=== PATIENT | male | born 1990 | race Two or more races ===

== ENCOUNTER 2019-08-03 15:25 | Inpatient (IN) | payer MEDICAID ==
[~2019-08-03] VITALS: Ht 170.2 cm; Wt 98.0 kg
[2019-08-03] VITALS (23 sets, daily range): BP systolic 87–151; BP diastolic 42–100
--- NOTE | 2019-08-03 15:30 | NUR ---
SERENE FROM US RENAL, 28 YEAR ROLD MALE C/O LOW (BP 75/44). ALERT TO TACTILE STIMULI NONVERBAL. NOTED RECTAL BLEEDING FROM SITE MD MADE AWARE. WITH WITH LEFT SUBCLAVIAN DIALYSIS ACCESS, GTUBE AND TRACH WITH COOL AERSOL. WAITING TO BE SEEN BY
[2019-08-03] MEDS ORDERED: VANCOMYCIN 1 GM in IV D5W 250 ML IV ONE (16:00)
[2019-08-03] MEDS ORDERED: MEROPENEM 500 MG in IV NS 0.9% 50 ML IV ONE (16:00)
[2019-08-03] MEDS ORDERED: ACET650S26 GT (16:02)
[2019-08-03] MEDS ORDERED: INSU100I34 SQ (16:02)
[2019-08-03] MEDS ORDERED: POLY17PO4 GT (16:02)
[2019-08-03] MEDS ORDERED: NUT.237L67 GT (16:02)
[2019-08-03] MEDS ORDERED: FOLI0.8T23 GT (16:02)
[2019-08-03] MEDS ORDERED: HEPA50008 SQ (16:02)
[2019-08-03] MEDS ORDERED: IPRA3AMP23 IH (16:02)
[2019-08-03] MEDS ORDERED: COLL30OI TP (16:02)
[2019-08-03] MEDS ORDERED: CLOB15CR5 TP (16:02)
[2019-08-03] MEDS ORDERED: GLUC1KIT IJ (16:02)
[2019-08-03] MEDS ORDERED: LEVO75TA7 GT (16:02)
[2019-08-03] MEDS ORDERED: SEVE800T8 GT (16:02)
[2019-08-03] MEDS ORDERED: VITA56.7 TP (16:02)
[2019-08-03] MEDS ORDERED: DOCU50LI GT (16:02)
[2019-08-03] MEDS ORDERED: GLYC1TAB12 GT (16:02)
[2019-08-03] MEDS ORDERED: POLY15DR40 EACHEYE (16:02)
[2019-08-03] MEDS ORDERED: FAMO20TA8 GT (16:02)
[2019-08-03] MEDS ORDERED: METO5SOL GT (16:02)
[2019-08-03] MEDS ORDERED: BISA10SU11 RC (16:02)
[2019-08-03] MEDS ORDERED: LEVE100S GT (16:02)
--- NOTE | 2019-08-03 16:08 | NUR ---
2 UNIT PRBC BLOOD TRANSFUSION INITIATE
--- NOTE | 2019-08-03 16:23 | NUR ---
B/P 91/51, RR 16, T 99.0, HR 127 NO REACTION NOTED
--- NOTE | 2019-08-03 16:27 | NUR ---
PICC LINE NURSE AT BEDSIDE
--- NOTE | 2019-08-03 16:27 | NUR ---
NO REACTION TO BLOOD TRANSFUSION WILL CONTINUE TO MONITOR
--- NOTE | 2019-08-03 16:32 | NUR ---
RIGHT UPPER ARM TRIPLE LUMEN PICC INSERTED BY KATIE PICC LINE NURSE
[2019-08-03 16:34] LABS: BASOPHILS # (AUTO) 0.1 /CMM (0.0-0.2); BASOPHILS % (AUTO) 0.3 % (0.0-2.0); EOSINOPHILS % (AUTO) 0.9 % (0.0-6.0); HEMATOCRIT 26 % (39-51); HEMOGLOBIN 8.1 g/dL (13.5-17.5); LYMPHOCYTES # (AUTO) 3.4 /CMM (0.8-4.8); LYMPHOCYTES % (AUTO) 15.6 % (20.0-44.0); MEAN CORPUSCULAR HGB CONC 32 g/dl (31.0-36.0); MEAN CORPUSCULAR VOLUME 103 fL (80-96); MONOCYTES # (AUTO) 1.1 /CMM (0.1-1.30); NEUTROPHILS % (AUTO) 78.2 % (43.0-81.0); PLATELET COUNT (AUTO) 222 /CMM (150-450); WHITE BLOOD COUNT (AUTO) 21.7 K/uL (4.3-11.0)
[2019-08-03] MEDS: NOREPINEPHRINE 8 MG in IV D5W 500 ML IV PRN ×2 (16:35→19:20)
[2019-08-03 16:37] LABS: CALCIUM, SERUM 10.7 mg/dL (8.5-10.1); CARBON DIOXIDE 24 mmol/L (21-32); CHLORIDE 106 mmol/L (98-107); CREATININE 7.3 mg/dL (0.6-1.3); GLUCOSE 157 mg/dL (74-106); SODIUM SERUM 142 mmol/L (136-145); UREA NITROGEN, BLOOD 62 mg/dL (7-18)
[2019-08-03 16:42] LABS: ALANINE AMINOTRANSFERASE 22 U/L (12-78); ALBUMIN 2.3 g/dL (3.4-5.0); ALKALINE PHOSPHATASE 88 U/L (46-116); ASPARTATE AMINOTRANSFERASE 20 U/L (15-37); BILIRUBIN,DIRECT 0.1 mg/dL (0.0-0.2); BILIRUBIN,TOTAL 0.3 mg/dL (0.2-1.0); TOTAL PROTEIN, SERUM 6.3 g/dL (6.4-8.2)
[2019-08-03 16:46] LABS: APPEARANCE,URINE Slightly Cloudy (CLEAR); BILIRUBIN,URINE SMALL (NEGATIVE); BLOOD, URINE Trace-intact Ery/uL (NEGATIVE); COLOR,URINE Yellow (YELLOW); KETONES,URINE Negative (NEGATIVE); LEUKOCYTE ESTERASE ,URINE Negative (NEGATIVE); NITRITE, URINE Negative (NEGATIVE); PH,URINE 5.5 (5.0-8.0); PROTEIN,URINE 100 mg/dl (NEGATIVE); UGLUCOSE Negative (NEGATIVE); UROBILINOGEN,URINE 0.2 EU/dL (0.2)
--- NOTE | 2019-08-03 16:53 | NUR ---
B/P 110/44, RR 20, HR 112, T 99.0
--- NOTE | 2019-08-03 17:01 | NUR ---
FISHER TRAMMEL NET AT BEDSIDE
[2019-08-03 17:08] LABS: BACTERIA,URINE Rare /HPF (None Seen); RBC,URINE 2-3/HPF /HPF (0-2)
[2019-08-03 17:09] LABS: SQUAMOUS EPITHELIAL CELL,UR Rare /HPF (None Seen); URINE AMORPHOUS URATE Many /HPF (None Seen)
--- NOTE | 2019-08-03 17:21 | NUR ---
PATIENT SOILED AND CHANGED
--- NOTE | 2019-08-03 17:27 | NUR ---
ICU 258
[2019-08-03] MEDS ORDERED: methylPREDNISolone SOD SUCC 125 MG/2ML VIAL IV ONE (17:30)
[2019-08-03] MEDS ORDERED: ONDANSETRON HCL/PF 4 MG/2 ML VIAL IVP PRN (17:30)
[2019-08-03] MEDS ORDERED: DEXTROSE 50%-WATER 50 ML DISP.SYRIN IV PRN (17:30)
[2019-08-03] MEDS ORDERED: NOREPINEPHRINE 8 MG in IV D5W 500 ML IV PRN (17:30)
[2019-08-03] MEDS ORDERED: IV NS 0.9% 1,000 ML BAG IV ONE (17:30)
[2019-08-03 17:36] LABS: EOSINOPHILS % (MANUAL) 1 % (0-4); LYMPHOCYTES % (MANUAL) 23 % (16-48); MONOCYTES % (MANUAL) 3 % (0-11.0); NEUTROPHILS % (MANUAL) 73 (42-76)
--- NOTE | 2019-08-03 17:41 | NUR ---
REPORT GIVEN GRANT TO HOLLAND CONTINUITY OF CARE
[2019-08-03] MEDS ORDERED: FEE PK DOSING 1 MIN EA MC ONE (17:46)
[2019-08-03 17:50] LABS: ABG BASE EXCESS -2.8 mmol/L; ABG OXYGEN SATURATION 96.1 % (92.0-98.5); ABG PCO2 35.3 mmHg (35.0-45.0); ABG PH 7.402 (7.350-7.450); ABG PO2 87.9 mmHg (75.0-100.0); AaDO2 91.7 mmHg; COHb 0.8 % (0.5-1.5); MetHb 0.3 % (0.0-1.5); SITE, ABG Left Radial; VENT MODE, BG VENTURI MAS @ 31%
--- NOTE | 2019-08-03 18:10 | NUR ---
ICU/RN-ADMITTED THIS 28 YR. OLD MALE FROM ER BY PATY PER ACLS PROTOCOL. ROUTINE ICU ADMISSION CARE INITIATED. NURSING FOCUS: INFECTION R/T TO DIAGNOSIS:SEPTIC SHOCK, ACUTE RECTAL BLEEDING. PT. EYES ARE OPEN BUT NON INTERACTIVE, W/ BILATERAL SOFT WRIST RESTRAINTS ON, ATTEMPTED TO REMOVE RESTRAINTS BUT FAILED,PT. NOTED TO GRAB TRACH . WILL MAINTAIN RESTRAINTS FOR NOW AND WILL CONTINUE TO MONITOR PT. ACCORDINGLY.EKG ST W/ HR-107/MIN. BP-112/67. ON LEVOPHED DRIP AT 16 MCG/MIN. WILL TITRATE ACCORDINGLY TO KEEP SBP> 90 PER PROTOCOL. PT. DIAPER SATURATED IN FRESH BLOOD, LARGE IN AMOUNT. PT. JUST RECEIVED 2 UNITS PRBC IN ER. WILL CONTINUE TO MONITOR PER PROTOCOL.PT. IS A FULL CODE. PT. IS A FULL CODE.
--- NOTE | 2019-08-03 18:19 | NUR ---
PATIENT TRANSFERRED SAFELY. 2 UNIT PRBC TRANSFUSED AND COMPLETE. NO REACTIONS NOTED
--- NOTE | 2019-08-03 18:30 | NUR ---
ICU/RN-ACNP/ RHETT SORIA HERE TO SEE PT.
--- NOTE | 2019-08-03 18:45 | NUR ---
ICU/RN- DR. ARCHIBALD GI HERE TO SEE PT. MADE AWARE OF PT. RECENT RECTAL BLEED AND IVF BOLUS ORDERED BY Kris RDZ. ORDER TO TRANSFUSE 1 UNIT OF PRBC AND OK TO GIVE 2700ML IVBOLUS ORDERED BY DR. FERRER.
--- NOTE | 2019-08-03 18:48 | NUR ---
ICU/RN- IVBOLUS 2700 ML NS INFUSED OVER 3-[address] FERRER.
[2019-08-03] MEDS: PANTOPRAZOLE 40 MG VIAL IV SCH (18:49)
[2019-08-03] MEDS: BLOOD SUGAR DIAGNOSTIC 1 EACH STRIP IN SCH ×2 (18:57→23:57)
[2019-08-03] MEDS ORDERED: IV NS 0.9% 1,000 ML IV ONE (19:00)
--- NOTE | 2019-08-03 19:00 | NUR ---
ICU/RN- PT. AGITATED, GAMING SPONTANEOUSLY, W/ MARTY. SOFT WRIST RESTRAINTS ON PER PROTOCOL. REMAINS ON TRACH SIZE 6 SHILEY TO 24%/3L O2. SP-99%. ON LEVOPHED DRIP AT 14 MCG/MIN. LATEST BP-123/73, HR-100. NO S/S OF PAIN. REPORT GIVEN TO ARIANNA PINK.LATEST TEMPT.-99.2. KEPT LIGHTLY COVERED.
[2019-08-03] MEDS: SEVELAMER CARBONATE 0.8 GM POWD.PACK GT SCH (19:03)
[2019-08-03] MEDS: INSULIN REGULAR, HUMAN 100 UNIT/ML 3 ML VIAL SQ PRN (19:21)
--- NOTE | 2019-08-03 19:46 | NUR ---
PLACED PT ON CA 28% 5L. NO RESPIRATORY DISTRESS NOTED AT THIS TIME. WILL CONTINUE TO MONITOR THE PT FOR ANY CHANGES.
--- NOTE | 2019-08-03 20:00 | NUR ---
Received patient awake alert non verbal non interactive not following commands and restless. Moves all extremities.Patient try pull out tract and G-tube & EKG leads when restraint released. Reapplied.No circulatory impairment noted.ST/ST per monitor.Levophed gtt infusing for BP support and will titrate accordingly.With cool aerosol via trach tolerating well.GT patent & clamped.NPO status.IVF infusing via HUAN PICC line.To received 1 unit PRBC.IV NS bolus infusing. Will turn and reposition Q 2 hrs per protocol.
[2019-08-03] MEDS: THERAHONEY GEL 1.5 OZ TUBE TP SCH (20:23)
[2019-08-03] MEDS ORDERED: IV NS 0.9% 250 ML BAG IV ONE (21:00)
[2019-08-03] MEDS: LEVETIRACETAM SOL (5 ML) 100 MG/ML UDC GT SCH (21:18)
[2019-08-03] MEDS: POLYVINYL ALCOHOL 15 ML BOTTLE OP SCH (21:18)
[2019-08-03] MEDS: GLYCOPYRROLATE 1 MG TABLET GT SCH (21:18)
[2019-08-03] MEDS: ACETAMINOPHEN 650 MG/20.3 ML UDC GT PRN (21:56)
--- NOTE | 2019-08-03 21:56 | NUR ---
Patient feverish 100.2 Tylenol administered as PRN.
[2019-08-03] MEDS: IV NS 0.9% 1,000 ML IV PRN (22:24)
--- NOTE | 2019-08-03 23:30 | NUR ---
Patient remains restless and temp 100.7.Bed bath rendered.Complete linens changed. MATERIAL YARD CLERK,Kaya ok'd to give Blood Transfusion even if temp 100.7.Continue to monitor.
[2019-08-04] VITALS (72 sets, daily range): BP systolic 53–177; BP diastolic 17–121
--- NOTE | 2019-08-04 | NUR ---
Patient resting appears calm and comfortable dosing off and on.VS stable.Will transfuse 1 unit PRBC.
[2019-08-04] MEDS ORDERED: IV NS 0.9% 250 ML IV ONE (00:29)
[2019-08-04] MEDS ORDERED: CT SWABBABLE VALVE TRANS SET 1 EA INFUS.SET MC ONE (00:29)
[2019-08-04] MEDS ORDERED: IOHEXOL-300 100 ML VIAL IV ONE (00:29)
--- NOTE | 2019-08-04 00:48 | NUR ---
Patient left via bed to CT in stable condition accompanied by web architect and global technical writerYana.
--- NOTE | 2019-08-04 01:12 | NUR ---
Patient back from CT in stable condition.Kept comfortable.VS stable.
[2019-08-04] MEDS: POLYVINYL ALCOHOL 15 ML BOTTLE OP SCH ×6 (01:22→21:42)
--- NOTE | 2019-08-04 03:30 | NUR ---
One unit PRBC completed without adverse reaction noted.Will monitor AM lab values.
[2019-08-04 04:38] LABS: BASOPHILS % (AUTO) 0.1 % (0.0-2.0); EOSINOPHILS % (AUTO) 0.1 % (0.0-6.0); HEMATOCRIT 29 % (39-51); HEMOGLOBIN 9.7 g/dL (13.5-17.5); LYMPHOCYTES # (AUTO) 1.9 /CMM (0.8-4.8); LYMPHOCYTES % (AUTO) 11.5 % (20.0-44.0); MEAN CORPUSCULAR HGB CONC 33 g/dl (31.0-36.0); MEAN CORPUSCULAR VOLUME 95 fL (80-96); MONOCYTES # (AUTO) 0.3 /CMM (0.1-1.30); MONOCYTES % (AUTO) 1.8 % (2.0-12.0); NEUTROPHILS # (AUTO) 14.4 /CMM (1.8-8.9); NEUTROPHILS % (AUTO) 86.5 % (43.0-81.0); PLATELET COUNT (AUTO) 132 /CMM (150-450); RED BLOOD CELL COUNT(AUTO) 3.05 MIL/uL (4.5-6.0); WHITE BLOOD COUNT (AUTO) 16.7 K/uL (4.3-11.0)
[2019-08-04 04:48] LABS: ALANINE AMINOTRANSFERASE 20 U/L (12-78); ALBUMIN 2.4 g/dL (3.4-5.0); ALKALINE PHOSPHATASE 81 U/L (46-116); ASPARTATE AMINOTRANSFERASE 23 U/L (15-37); BILIRUBIN,TOTAL 0.5 mg/dL (0.2-1.0); CALCIUM, SERUM 9.8 mg/dL (8.5-10.1); CARBON DIOXIDE 23 mmol/L (21-32); CHLORIDE 107 mmol/L (98-107); GLUCOSE 120 mg/dL (74-106); POTASSIUM 4.6 mmol/L (3.5-5.1); SODIUM SERUM 139 mmol/L (136-145); UREA NITROGEN, BLOOD 64 mg/dL (7-18)
[2019-08-04] MEDS: GLYCOPYRROLATE 1 MG TABLET GT SCH ×4 (05:06→21:43)
[2019-08-04] MEDS: PANTOPRAZOLE 40 MG VIAL IV SCH ×2 (05:06→16:55)
[2019-08-04 05:25] LABS: D-DIMER 2.15 mg/L(FEU (0.17-0.50)
[2019-08-04] MEDS: BLOOD SUGAR DIAGNOSTIC 1 EACH STRIP IN SCH ×3 (05:47→17:49)
--- NOTE | 2019-08-04 07:15 | NUR ---
Patient status unchanged.Had one bright red BM x1 moderate amount this morning. Kept clean and dry.Complete linens changed.Turned and repositioned.No acute distress noted. VSS.SR.FSBS Q 6 HRS with results WNL.Report given to day shift RN for continuity of care.
--- NOTE | 2019-08-04 07:50 | NUR ---
BUILDER OPERATOR: pt.is obtunded, able to eyes for seconds, no eyes contact, on wrists restraints, mittens, unable to follow commands, uncooperative, uncoordinated arm, legs activity with pull tubes out risks, SR/ST 110 max, Levophed gtt was stopped at 0500, SBP over 95 now, on trach collar 28%-5L, O2sat. over 96%, RR 26-28, adjusted collar position directly to trach, F/c, able to urinate 130ml over night, has order to remove f/c by report/will s/w , T99.5, H/H 9.05/16 now, one episode of red bloody stool over night, will report , NPO
[2019-08-04] MEDS: SEVELAMER CARBONATE 0.8 GM POWD.PACK GT SCH ×3 (08:38→17:49)
[2019-08-04] MEDS: ACETAMINOPHEN 650 MG/20.3 ML UDC GT PRN (08:39)
[2019-08-04] MEDS: LEVETIRACETAM SOL (5 ML) 100 MG/ML UDC GT SCH ×2 (08:39→21:43)
[2019-08-04] MEDS: LEVOTHYROXINE SODIUM 75 MCG TABLET GT SCH (08:39)
[2019-08-04] MEDS: THERAHONEY GEL 1.5 OZ TUBE TP SCH (08:40)
--- NOTE | 2019-08-04 09:30 | NUR ---
PHYSIOLOGIST: , were in room, updated with all above, see new orders, ordered HD today, ok to remove f/c
--- NOTE | 2019-08-04 11:15 | NUR ---
PHARMACOLOGY TEACHER: pt had big red blood stool, bedbath/skin/wound care done, family is in room, updated with pt.current status, VS, POC, orders, HD nurse is in room/updated, family is agree and gave consent for HD, H/H ordered stat, charge nurse is aware
[2019-08-04 11:38] LABS: HEMOGLOBIN 8.4 g/dL (13.5-17.5)
--- NOTE | 2019-08-04 11:40 | NUR ---
DISPATCHER BUS AND TROLLEY: is in room, updated with pt.current condition, neurostatus, uncooperative/agitating episodes, VS, Levophed gtt off, I/O, IVF, current H/H 8.02/11, big red blood stool x1 recently, NPO, skin wounds, ordered: repeat CBC at 16.00, w/c consult, if active bleeding+: H/H q6h, see new orders, waiting consult, pt.is getting HD now, VSS, SBP over 95, pt.sister called/updated again
[2019-08-04] MEDS ORDERED: NOREPINEPHRINE 8 MG in IV D5W 500 ML IV PRN (12:00)
--- NOTE | 2019-08-04 13:30 | NUR ---
STERILE PREPARATION TECHNICIAN: pt.is getting HD, tolerated well, VSS. YUNG Puri called/notified re pt.current status, VS, meds, labs, red blood stool x1 morning time, pressor off, ordered: stool for cultures, c-diff, OB, WBC, ova&parasite, consent for EGD, let her know if pt is with active bleeding, see new orders
[2019-08-04 13:34] LABS: IRON, SERUM 60 ug/dl (50-175); TOTAL IRON BINDING CAPACITY 147 ug/dl (250-450)
[2019-08-04 14:10] LABS: FERRITIN 2884 ng/mL (8-388)
--- NOTE | 2019-08-04 14:10 | NUR ---
FOAM FABRICATOR: pt.sister, mother is in room/updated, got consent for EGD
--- NOTE | 2019-08-04 14:24 | NUR ---
CERTIFIED MEDICATION AIDE: HD done, 500ml out, SR/ST 110 max, SBP over 120, pt.is agitating now, uncoordinated strong arms, legs activity with risk to pull out tubes, continue restraints
[2019-08-04] MEDS: IV NS 0.9% 1,000 ML IV PRN (15:03)
[2019-08-04 16:29] LABS: BASOPHILS % (AUTO) 0.3 % (0.0-2.0); HEMATOCRIT 24 % (39-51); LYMPHOCYTES # (AUTO) 1.9 /CMM (0.8-4.8); LYMPHOCYTES % (AUTO) 18.2 % (20.0-44.0); MEAN CORPUSCULAR HGB CONC 34 g/dl (31.0-36.0); MEAN CORPUSCULAR VOLUME 95 fL (80-96); MONOCYTES # (AUTO) 1.1 /CMM (0.1-1.30); MONOCYTES % (AUTO) 10.7 % (2.0-12.0); NEUTROPHILS # (AUTO) 7.4 /CMM (1.8-8.9); NEUTROPHILS % (AUTO) 69.8 % (43.0-81.0); PLATELET COUNT (AUTO) 107 /CMM (150-450); RED BLOOD CELL COUNT(AUTO) 2.48 MIL/uL (4.5-6.0); WHITE BLOOD COUNT (AUTO) 10.6 K/uL (4.3-11.0)
--- NOTE | 2019-08-04 16:29 | NUR ---
CART DRIVER: pt.family is at BS/updated again, pt.is with same neurostatus, with restraints, checked hands, circulation/ skin is intact, SR now, O2sat. over 94%, no SOB, SBP over 95, all PM/skin/wounds care done
[2019-08-04] MEDS: MEROPENEM 500 MG in IV NS 0.9% 50 ML IV SCH (16:52)
--- NOTE | 2019-08-04 17:50 | NUR ---
TRIAL COURT JUSTICE: Khushi,GI group DIGITAL CONTROLS TECHNICAL OFFICER is in room, updated with pt.current status, VS, no BM since morning time, IVF, pressor off, last H/H 8.0, spoke with family, got history and gave detailed explanation re possible Dx, risks, POC, orders, possible EGD
[2019-08-04] MEDS ORDERED: VANCOMYCIN 500 MG in IV D5W 100 ML IV PRN (18:00)
[2019-08-04] MEDS: LORAZEPAM INJ 2 MG/ML VIAL IVP PRN (21:28)
[2019-08-04] MEDS: METRONIDAZOLE 500MG/ NS 100ML 500 MG in PREMIX 1 EA IV SCH (21:42)
[2019-08-04 22:43] LABS: OCCULT BLOOD STOOL POSITIVE (NEGATIVE)
[2019-08-04 22:58] LABS: HEMOGLOBIN 8.3 g/dL (13.5-17.5)
[2019-08-05] VITALS (48 sets, daily range): BP systolic 63–134; BP diastolic 27–93
[2019-08-05] MEDS: BLOOD SUGAR DIAGNOSTIC 1 EACH STRIP IN SCH ×4 (00:43→18:16)
[2019-08-05] MEDS: POLYVINYL ALCOHOL 15 ML BOTTLE OP SCH ×6 (01:13→20:55)
[2019-08-05 04:51] LABS: BASOPHILS % (AUTO) 0.4 % (0.0-2.0); EOSINOPHILS % (AUTO) 5.2 % (0.0-6.0); HEMATOCRIT 24 % (39-51); HEMOGLOBIN 8.3 g/dL (13.5-17.5); LYMPHOCYTES # (AUTO) 2.2 /CMM (0.8-4.8); LYMPHOCYTES % (AUTO) 23.3 % (20.0-44.0); MEAN CORPUSCULAR HGB CONC 35 g/dl (31.0-36.0); MEAN CORPUSCULAR VOLUME 96 fL (80-96); MONOCYTES % (AUTO) 10.3 % (2.0-12.0); NEUTROPHILS # (AUTO) 5.7 /CMM (1.8-8.9); NEUTROPHILS % (AUTO) 60.8 % (43.0-81.0); PLATELET COUNT (AUTO) 119 /CMM (150-450); WHITE BLOOD COUNT (AUTO) 9.4 K/uL (4.3-11.0)
[2019-08-05 05:01] LABS: CALCIUM, SERUM 8.4 mg/dL (8.5-10.1); CREATININE 4.8 mg/dL (0.6-1.3); MAGNESIUM 2.4 mg/dL (1.8-2.4); POTASSIUM 3.5 mmol/L (3.5-5.1)
[2019-08-05] MEDS: METRONIDAZOLE 500MG/ NS 100ML 500 MG in PREMIX 1 EA IV SCH ×3 (05:26→20:55)
[2019-08-05] MEDS: PANTOPRAZOLE 40 MG VIAL IV SCH ×2 (05:26→17:04)
[2019-08-05] MEDS: IV NS 0.9% 1,000 ML IV PRN (05:27)
--- NOTE | 2019-08-05 07:30 | NUR ---
WAS RESTLESS MOST OF THE NIGHT, EVEN AFTER ATIVAN GIVEN,CONTINUES TO NEED B/P SUPPORT WITH LEVOPHED.
[2019-08-05] MEDS: LORAZEPAM INJ 2 MG/ML VIAL IVP PRN ×3 (07:56→21:27)
--- NOTE | 2019-08-05 08:00 | NUR ---
MANAGER OF CARE: pt.is restless now, uncooperative, uncontrolled arms/legs activity with risk to pull out all tubes, on wrists, mittens restraints and exactly needs it by report, no grimacing, SR, on 3 mcg/m Levophed gtt/will titrate down, SBP over 95 now, O2sat. over 96%, same trach collar setting, H/H 8.3/24 now, no bloody stool over night by report, had BS 49/got D 50-50, BS 119 after, will speak with jackie LEONARD, plan: HD today, getting NS@75ml/h IVF, NPO, W/c nurse evaluated pt/see note
--- NOTE | 2019-08-05 08:15 | NUR ---
WOUND CARE CONSULT: PT PRESENTS WITH LEFT SECOND TOE WOUND, LEFT ARM DISCOLORED AREA, SCARRING TO SACRUM, PRESENT ON ADMISSION. RECOMMENDATIONS MADE FOR SKIN PROTECTION. DISCUSSED WITH NURSING STAFF. RECOMMEND DPM CONSULT. PT ON [facility] BED. WILL SEE PRN. LEONARD IN AGREEMENT WITH PLAN OF CARE. Addendum: 08/05/19 at 0817 by JC ORTEGA Amended: Links added. Addendum: 08/05/19 at [address] LONG AWARE OF DPM CONSULT REQUEST. DEFER TO DPM FOR LOWER EXTREMITY WOUND TREATMENT PLAN.
--- NOTE | 2019-08-05 08:30 | NUR ---
CRYSTAL SLICER: is in room, updated with all above, see new orders
[2019-08-05] MEDS: SEVELAMER CARBONATE 0.8 GM POWD.PACK GT SCH ×3 (08:56→17:04)
[2019-08-05] MEDS: LEVOTHYROXINE SODIUM 75 MCG TABLET GT SCH (09:30)
[2019-08-05] MEDS: LEVETIRACETAM SOL (5 ML) 100 MG/ML UDC GT SCH ×2 (09:30→20:38)
--- NOTE | 2019-08-05 10:00 | NUR ---
SEISMIC PROSPECTING SUPERVISOR: HD nurse updated, HD started
--- NOTE | 2019-08-05 10:30 | NUR ---
HARDWOOD FLOOR REFINISHER: is in room, updated with all above, current pt.condition, VS, I/O, IVF, low BS, labs, no bloody BM over night, regarding Hkushi,EMBEDDED SYSTEMS SOFTWARE ENGINEER visit and order for possible EGD/consent done and stool sample for culture, cdiff, WBC, ovo/parasites, ordered: D5NS IVF same rate
[2019-08-05] MEDS: IV D5/ 0.9% NACL 1,000 ML IV PRN (10:51)
[2019-08-05] MEDS: GLYCOPYRROLATE 1 MG TABLET GT SCH ×2 (12:24→20:38)
[2019-08-05] MEDS: Z GUARD REMEDY 2 OZ OINT TP PRN (12:24)
[2019-08-05] MEDS: Z GUARD REMEDY 2 OZ OINT TP SCH (12:25)
[2019-08-05] MEDS: CADEXOMER IODINE 40 GM TUBE TP SCH (13:52)
--- NOTE | 2019-08-05 14:00 | NUR ---
SANITATION LABORER: same neuro status, HD done, tolerated well, SR, SBP over 95, O2sat. WNL, no bloody BM
[2019-08-05] MEDS: MEROPENEM 500 MG in IV NS 0.9% 50 ML IV SCH (17:04)
--- NOTE | 2019-08-05 18:00 | NUR ---
MARINE DIVER: pt.had one dark red(no black)BM, will recheck H/H, PM/skin/wounds care done, restraints reevaluated: no skin redness, no breakdown, same neuro status, Vanco given after HD, BS 79/getting D5NS, Nera, IDNP was in room, updated, see new orders
[2019-08-05 18:31] LABS: HEMOGLOBIN 7.4 g/dL (13.5-17.5)
[2019-08-05] MEDS ORDERED: QUETIAPINE FUMARATE 25 MG TABLET PO ONE (21:00)
[2019-08-06] VITALS (33 sets, daily range): BP systolic 81–132; BP diastolic 45–81
[2019-08-06 00:24] LABS: HEMOGLOBIN 7.2 g/dL (13.5-17.5)
[2019-08-06] MEDS: POLYVINYL ALCOHOL 15 ML BOTTLE OP SCH ×6 (01:04→20:37)
[2019-08-06] MEDS: LORAZEPAM INJ 2 MG/ML VIAL IVP PRN ×4 (01:39→20:38)
[2019-08-06] MEDS: MORPHINE SULFATE INJ 2 MG/ML DISP.SYRIN IV PRN ×2 (04:35→14:56)
[2019-08-06] MEDS: IV D5/ 0.9% NACL 1,000 ML IV PRN ×2 (04:41→21:36)
[2019-08-06 04:53] LABS: BASOPHILS % (AUTO) 0.7 % (0.0-2.0); EOSINOPHILS % (AUTO) 8.9 % (0.0-6.0); HEMATOCRIT 23 % (39-51); HEMOGLOBIN 7.7 g/dL (13.5-17.5); LYMPHOCYTES # (AUTO) 1.6 /CMM (0.8-4.8); LYMPHOCYTES % (AUTO) 24.5 % (20.0-44.0); MEAN CORPUSCULAR HGB CONC 34 g/dl (31.0-36.0); MEAN CORPUSCULAR VOLUME 97 fL (80-96); MONOCYTES # (AUTO) 0.8 /CMM (0.1-1.30); MONOCYTES % (AUTO) 11.6 % (2.0-12.0); NEUTROPHILS # (AUTO) 3.6 /CMM (1.8-8.9); NEUTROPHILS % (AUTO) 54.3 % (43.0-81.0); PLATELET COUNT (AUTO) 110 /CMM (150-450); RED BLOOD CELL COUNT(AUTO) 2.31 MIL/uL (4.5-6.0); WHITE BLOOD COUNT (AUTO) 6.6 K/uL (4.3-11.0)
[2019-08-06 05:10] LABS: CALCIUM, SERUM 8.5 mg/dL (8.5-10.1); CREATININE 4.3 mg/dL (0.6-1.3); MAGNESIUM 2.1 mg/dL (1.8-2.4); PHOSPHORUS 3.5 mg/dL (2.5-4.9); POTASSIUM 3.6 mmol/L (3.5-5.1)
[2019-08-06] MEDS: METRONIDAZOLE 500MG/ NS 100ML 500 MG in PREMIX 1 EA IV SCH ×3 (05:13→20:37)
[2019-08-06] MEDS: GLYCOPYRROLATE 1 MG TABLET GT SCH ×3 (05:13→20:37)
[2019-08-06] MEDS: PANTOPRAZOLE 40 MG VIAL IV SCH ×2 (05:13→17:09)
[2019-08-06] MEDS: BLOOD SUGAR DIAGNOSTIC 1 EACH STRIP IN SCH ×5 (05:42→23:04)
[2019-08-06 06:19] LABS: EOSINOPHILS % (MANUAL) 9 % (0-4); LYMPHOCYTES % (MANUAL) 24 % (16-48); MONOCYTES % (MANUAL) 12 % (0-11.0); NEUTROPHILS % (MANUAL) 55 (42-76)
--- NOTE | 2019-08-06 07:30 | NUR ---
OCEAN FREIGHT MANAGER OPENING NOTE RECEIVED REPORT FROM PM NURSE. PATIENT IN BED.WAKE,RESTLESS.WITH BILATERAL SOFT RESTRAINTS.PATIENT HOLDING ALL TUBES WHILE TAKE OUT RESTRAINTS INCLUDING TRYING TO REMOVE TRACH TUBES.NOTED TO GRAB TRACH .HUAN PICCLINE WITH IVF ORDERED.L CHEST DIALYSIS CATH INTACT AND PATENT.BED IS LOW AND IN LOCKED POSITION.CALL LIGHT IN REACH.BED ALARM ON.SRX4.WILL CONTINUE TO MONITOR.
[2019-08-06] MEDS: LEVOTHYROXINE SODIUM 75 MCG TABLET GT SCH (08:43)
[2019-08-06] MEDS: SEVELAMER CARBONATE 0.8 GM POWD.PACK GT SCH ×3 (08:43→17:09)
[2019-08-06] MEDS: LEVETIRACETAM SOL (5 ML) 100 MG/ML UDC GT SCH ×2 (08:43→20:37)
[2019-08-06] MEDS: Z GUARD REMEDY 2 OZ OINT TP SCH (08:46)
--- NOTE | 2019-08-06 14:30 | NUR ---
SUPERVISOR SHOP NOTES SEEN BY ,UPDATED ABOUT PATIENT CONDITION WITH LABS.GOT NEW ORDERS.MADE AWARE ABOUT GI CONSULT PENDING.
[2019-08-06 17:06] LABS: *ANCANTIMYELOPEROXIDASE (MPO) <9.0 U/mL (0.0-9.0); *ANCANTIPROTEINASE 3 (PR-3) AB <3.5 U/mL (0.0-3.5)
--- NOTE | 2019-08-06 19:10 | NUR ---
TELEGRAPH DISPATCHER CLOSING NOTE PATIENT IN BED.SLEEPING AND AWAKE IN BETWEEN.ON BILATERAL SOFT RESTRAINTS.PATIENT TRYING TO REMOVE RESTRAINTS.HUAN PICCLINE WITH IVF ORDERED.L CHEST DIALYSIS CATH INTACT AND PATENT.ONGOING DIALYSIS.BED IS LOW AND IN LOCKED POSITION.CALL LIGHT IN REACH.BED ALARM ON.SRX4.ENDORSED TO PM NURSE TO F/U WITH FROM GI AND FOR CABRERA.
--- NOTE | 2019-08-06 19:25 | NUR ---
SOLAR INSTALLATION MANAGER NOTES RECEIVED PT ON BED. SLEEPING.WITH ON GOING HD. ON TELE MONITOR SR 95. ON COOL AEROSOL 5LPM SATURATING 94% , NO RESPIRATORY DISTRESS NOTED. IV ACCESS ON HUAN PICC WITH D5NS RUNNING @75CC/HR.ON BILATERAL SOFT RESTRAINTS. HEAD OF BED ELEVATED. SIDE RAILS UP. CALL LIGHT WITHIN REACH. BED ALARM ON. BED IN LOW AND LOCKED POSITION. WILL MONITOR PT CLOSELY.
--- NOTE | 2019-08-06 19:26 | NUR ---
MACHINE TRACER NOTE SPOKE TO ,UPDATED ABOUT PATIENT CONDITION WITH LABS MADE AWARE ABOUT CONSULT.HE SAID HE WILL SEE PATIENT TOMORROW.
[2019-08-07] VITALS (24 sets, daily range): BP systolic 51–137; BP diastolic 30–76
[2019-08-07] MEDS: LORAZEPAM INJ 2 MG/ML VIAL IVP PRN ×3 (00:42→22:36)
--- NOTE | 2019-08-07 01:00 | NUR ---
LABOR RELATIONS MANAGER NOTES TRACHEOSTOMY TUBE CHANGE PER RT.
[2019-08-07] MEDS: POLYVINYL ALCOHOL 15 ML BOTTLE OP SCH ×6 (01:25→21:08)
[2019-08-07] MEDS: METRONIDAZOLE 500MG/ NS 100ML 500 MG in PREMIX 1 EA IV SCH ×3 (04:35→21:05)
[2019-08-07] MEDS: GLYCOPYRROLATE 1 MG TABLET GT SCH ×3 (04:35→21:05)
[2019-08-07] MEDS: PANTOPRAZOLE 40 MG VIAL IV SCH ×2 (04:36→17:54)
[2019-08-07 04:40] LABS: BASOPHILS % (AUTO) 0.7 % (0.0-2.0); EOSINOPHILS % (AUTO) 9.7 % (0.0-6.0); HEMATOCRIT 23 % (39-51); HEMOGLOBIN 7.4 g/dL (13.5-17.5); LYMPHOCYTES # (AUTO) 1.3 /CMM (0.8-4.8); LYMPHOCYTES % (AUTO) 20.4 % (20.0-44.0); MEAN CORPUSCULAR HGB CONC 33 g/dl (31.0-36.0); MEAN CORPUSCULAR VOLUME 98 fL (80-96); MONOCYTES # (AUTO) 0.7 /CMM (0.1-1.30); MONOCYTES % (AUTO) 10.1 % (2.0-12.0); NEUTROPHILS # (AUTO) 3.9 /CMM (1.8-8.9); NEUTROPHILS % (AUTO) 59.1 % (43.0-81.0); PLATELET COUNT (AUTO) 111 /CMM (150-450); WHITE BLOOD COUNT (AUTO) 6.6 K/uL (4.3-11.0)
[2019-08-07 04:57] LABS: CALCIUM, SERUM 8.1 mg/dL (8.5-10.1); CREATININE 3.9 mg/dL (0.6-1.3); MAGNESIUM 1.9 mg/dL (1.8-2.4); PHOSPHORUS 3.4 mg/dL (2.5-4.9); POTASSIUM 3.8 mmol/L (3.5-5.1)
[2019-08-07] MEDS: BLOOD SUGAR DIAGNOSTIC 1 EACH STRIP IN SCH ×4 (05:10→23:21)
--- NOTE | 2019-08-07 07:18 | NUR ---
TELEGRAPHIC TYPEWRITER OPERATOR CHIEF NOTES NO ACUTE CHANGES NOTED DURING THE SHIFT. PT RESTLESS, NO RESPIRATORY DISTRESS NOTED. WILL ENDORSE TO THE AM NURSE FOR CONTINUITY OF CARE.
--- NOTE | 2019-08-07 08:30 | NUR ---
LINUX SUPPORT ENGINEER INITIAL NOTE RECEIVED PATIENT AWAKE, RESTLESS, ATTEMPTING TO PULL LINES AND TUBES. REORIENTATION INEFFECTIVE. UNCOOPERATIVE AT THIS TIME. NO RESPIRATORY DISTRESS NOTED. ON TPIECE C/A 5LPM, FIO2 28%. TRACH C/D/I. ON TELE MONITOR SINUS TACH. WITH GT PATENT, INTACT, IN PLACE. HOB ELEVATED. NOTED WITH BILATERAL SOFT RESTRAINTS AND BILATERAL HAND MITTENS, CIRCULATION CHECKED. HOB ELEVATED. TURNED AND REPOSITIONED. SIDE RAILS UP AND LOCKED. BED KEPT AT LOWEST POSITION. WILL CONTINUE TO MONITOR.
[2019-08-07] MEDS: LEVETIRACETAM SOL (5 ML) 100 MG/ML UDC GT SCH ×2 (09:46→21:05)
[2019-08-07] MEDS: LEVOTHYROXINE SODIUM 75 MCG TABLET GT SCH (09:46)
[2019-08-07] MEDS: SEVELAMER CARBONATE 0.8 GM POWD.PACK GT SCH ×3 (09:46→17:54)
[2019-08-07] MEDS: Z GUARD REMEDY 2 OZ OINT TP SCH (09:50)
[2019-08-07] MEDS: CADEXOMER IODINE 40 GM TUBE TP SCH (09:50)
[2019-08-07] MEDS: IV D5/ 0.9% NACL 1,000 ML IV PRN (13:00)
--- NOTE | 2019-08-07 13:31 | NUR ---
SEAT MAKER NOTE SEEN AND EXAMINED BY DR. WAKEFIELD FAMILY AT BEDSIDE. WITH ORDERS TO START TUBE FEEDING NEPRO AT 20ML/HR WITH GOAL RATE 50ML/HR AND OK TO TRANSFER TO [facility].
--- NOTE | 2019-08-07 14:50 | NUR ---
AIR TRAFFIC CONTROL MANAGER NOTE NOTED PATIENT WITH LARGE BLOODY STOOL. PERICARE GIVEN. MD DR. WAKEFIELD INFORMED, WITH ORDERS FOR STAT H/H AND CONTINUE WITH TRANSFER AND STARTING TUBE FEEDING. PAGED DR. BARRON. WAITING FOR CALL BACK. WILL CONTINUE TO MONITOR. FAMILY AT BEDSIDE.
[2019-08-07 15:17] LABS: HEMOGLOBIN 7.8 g/dL (13.5-17.5)
[2019-08-07] MEDS: NEPRO 1,000 ML BOTTLE GT PRN (18:04)
--- NOTE | 2019-08-07 19:15 | NUR ---
arboriculture teacher note Dr. Nolasco arrived to station. patient's father at bedside. Per Dr. Nolasco he will speak with STREET LIGHT SERVICER SUPERVISOR. He will follow up tomorrow.
--- NOTE | 2019-08-07 19:50 | NUR ---
LIVESTOCK EXHIBITOR NOTES, PATIENT IN BED RESTLESSNESS, MOVING LEGS AND TRYING TO REMOVE RESTRAINS, FATHER AT BEDSIDE, BILATERAL WRIST RESTRAINTS IN PLACE WELL BILATERAL MITTENS, NO ABNORMALITY NOTED AT SITE, NO CIRCULATION COMPROMISED, GT PATENT IN PLACE, FEEDING INFUSING AT 20ML/HR , NO RESIDUAL NOTED AT THIS TIME, KEPT CLEAN AND DRY, POSSIBLE TRANSFER TO [facility] TONIGHT AWAITING FOR BED, HUAN PICC LINE IN PLACED, PATENT AND INTACT, IVF INFUSING WELL, AND PATIENT TOLERATED WELL, HOB ELEVATED AT ALL TIMES FOR ASPIRATION PRECAUTIONS, SIDE RAILS UP AND LOCKED, BED LOCKED, AND IN LOWEST POSITION, WILL CONTINUE TO MONITOR CLOSELY.
--- NOTE | 2019-08-07 19:56 | NUR ---
SPOOL TENDER CLOSING NOTE ALL SAFETY MEASURES TAKEN. PATIENT RESTLESS, FAMILY AT BEDSIDE THROUGH THE DAY. BILATERAL WRIST RESTRAINTS IN PLACE AND BILATERAL MITTENS. GT PATENT, INTACT, IN PLACE, GTF AT 20ML/HR WITH NO RESIDUAL AT THIS TIME. ALL DUE MEDS GIVEN. KEPT CLEAN AND DRY. UPDATES GIVEN TO FAMILY. CALL CENTER TEAM LEADER AND CERTIFIED ACTIVITIES DIRECTOR AWARE FOR PATIENT TRANSFER, WAITING FOR BED. HUAN PICC LINE PATENT AND INTACT, WITH IVF RUNNING. HOB ELEVATED. SIDE RAILS UP AND LOCKED. BED KEPT AT LOWEST POSITION. CONTINUITY OF CARE ENDORSED TO PM NURSE.
[2019-08-07] MEDS: MORPHINE SULFATE INJ 2 MG/ML DISP.SYRIN IV PRN (21:15)
[2019-08-07] MEDS: INSULIN REGULAR, HUMAN 100 UNIT/ML 3 ML VIAL SQ PRN (23:21)
--- NOTE | 2019-08-07 23:22 | NUR ---
AGRICULTURAL INSPECTOR NOTES, INSULIN PER SLIDING SCALE NON-ADMINISTERED DUE TO BLOOD SUGAR LEVEL AT THIS TIME 75MG/dL. WILL CONTINUE TO MONITOR PATIENT CLOSELY.
[2019-08-08] VITALS (30 sets, daily range): BP systolic 58–146; BP diastolic 23–97
[2019-08-08] MEDS: POLYVINYL ALCOHOL 15 ML BOTTLE OP SCH ×6 (01:14→21:21)
[2019-08-08 04:30] LABS: BASOPHILS % (AUTO) 0.5 % (0.0-2.0); EOSINOPHILS % (AUTO) 10.2 % (0.0-6.0); HEMATOCRIT 21 % (39-51); LYMPHOCYTES # (AUTO) 1.1 /CMM (0.8-4.8); LYMPHOCYTES % (AUTO) 18.8 % (20.0-44.0); MEAN CORPUSCULAR HGB CONC 33 g/dl (31.0-36.0); MEAN CORPUSCULAR VOLUME 100 fL (80-96); MONOCYTES # (AUTO) 0.7 /CMM (0.1-1.30); MONOCYTES % (AUTO) 10.8 % (2.0-12.0); NEUTROPHILS # (AUTO) 3.7 /CMM (1.8-8.9); NEUTROPHILS % (AUTO) 59.7 % (43.0-81.0); PLATELET COUNT (AUTO) 116 /CMM (150-450); WHITE BLOOD COUNT (AUTO) 6.1 K/uL (4.3-11.0)
[2019-08-08 04:45] LABS: CREATININE 5.1 mg/dL (0.6-1.3); MAGNESIUM 2.1 mg/dL (1.8-2.4); PHOSPHORUS 4.6 mg/dL (2.5-4.9); POTASSIUM 3.8 mmol/L (3.5-5.1)
[2019-08-08 05:03] LABS: HEMOGLOBIN 6.9 g/dL (13.5-17.5)
[2019-08-08 05:10] LABS: EOSINOPHILS % (MANUAL) 7 % (0-4); LYMPHOCYTES % (MANUAL) 19 % (16-48); MONOCYTES % (MANUAL) 8 % (0-11.0); NEUTROPHILS % (MANUAL) 66 (42-76)
--- NOTE | 2019-08-08 05:10 | NUR ---
SUPERVISOR ELECTRONICS ASSEMBLY NOTES, RECEIVED CRITICAL VALUE FOR HEMOGLOBIN 6.9, AND CALLED BERTRAM HARDWOOD FLOORING SPECIALIST FOR FURTHER ORDERS, AWAITING TO CALL BACK.
--- NOTE | 2019-08-08 05:30 | NUR ---
PORT PATROL OFFICER NOTES, CALLED AGAIN [facility]CHANGE TO CONTACT SAL TO REPORT CRITICAL VALUE FOR HEMOGLOBIN, AWAITING FOR CALL BACK.
[2019-08-08] MEDS: IV D5/ 0.9% NACL 1,000 ML IV PRN ×2 (05:33→23:41)
[2019-08-08] MEDS: PANTOPRAZOLE 40 MG VIAL IV SCH ×2 (05:42→08:58)
[2019-08-08] MEDS: GLYCOPYRROLATE 1 MG TABLET GT SCH ×3 (05:42→21:20)
[2019-08-08] MEDS: METRONIDAZOLE 500MG/ NS 100ML 500 MG in PREMIX 1 EA IV SCH ×3 (05:42→21:21)
[2019-08-08] MEDS: BLOOD SUGAR DIAGNOSTIC 1 EACH STRIP IN SCH ×4 (06:10→23:39)
--- NOTE | 2019-08-08 06:10 | NUR ---
MECHANICAL DESIGN ENGINEER NOTES, SPOKED WITH BERTRAM AND REPORTED CRITICAL VALUE FOR HEMOGLOBIN 6.9 AND RECEIVED A NEW ORDER TO TRANSFUSE 0NE UNIT PRBC WITH HD, NOTED AND CARRIED OUT, CALLED LAB AND AWARE OF ORDER, WILL CONTINUE TO MONITOR CLOSELY.
[2019-08-08] MEDS: INSULIN REGULAR, HUMAN 100 UNIT/ML 3 ML VIAL SQ PRN (06:11)
--- NOTE | 2019-08-08 06:30 | NUR ---
CLAIMS ADJUSTER CROP NOTES, INSULIN PER SLIDING SCALE NON-ADMINISTERED DUE TO BLOOD SUGAR LEVEL AT THIS TIME 72MG/dL. WILL CONTINUE TO MONITOR PATIENT CLOSELY.
--- NOTE | 2019-08-08 07:20 | NUR ---
HAT BLOCKING MACHINE OPERATOR NOTES, PATIENT IN BED CONTINUE WITH EPISODES OF RESTLESSNESS, RESTLESSNESS, BILATERAL WRIST RESTRAINTS IN PLACE WELL BILATERAL MITTENS, NO ABNORMALITY NOTED AT SITE, NO CIRCULATION COMPROMISED, GT PATENT IN PLACE, FEEDING INFUSING AT 20ML/HR, STOP AT TIMES FOR ASPIRATION PRECAUTION SINCE PATIENT DOESN'T STAY WITH HEAD ELEVATED, AND SLIDES DOWN, NO RESIDUAL NOTED AT THIS TIME, KEPT CLEAN AND DRY, , HUAN PICC LINE IN PLACED, PATENT AND INTACT, IVF INFUSING WELL, AND PATIENT TOLERATED WELL, HOB ELEVATED AT ALL TIMES FOR ASPIRATION PRECAUTIONS, SIDE RAILS UP, BED LOCKED AND IN LOWEST POSITION, WITH ORDER FROM BERTRAM TO TRANSFUSE ONE UNIT OF PRBC WITH HD DUE TO HBG 6.9 THIS MORNING, ENDORSED TO NAVEEN, RN BED LOCKED, FOR CONTINUATION OF CARE.
--- NOTE | 2019-08-08 07:30 | NUR ---
RN NOTES RECEIVED PATIENT IN BED, WITH SPONTANEOUS EYE OPENING, UNABLE TO CONVERSE. RESTLESS. NOT ON ANY FOR OF DISTRESS. ON T PIECE WITH OXYGEN AT 28% FI02, TOLERATING WELL. NOT ON ANY FORM OF DISTRESS. NO INDICATION OF PAIN NOTED AT THIS TIME. SINUS TACHY ON THE MONITOR WITH HR ON THE 110s. HD CATH ON THE LEFT UPPER CHEST WALL, IN PLACE AND INTACT, DRESSING CLEAN AND DRY. GT IN PLACE, PLACEMENT CONFIRMED BY AUSCULTATION AND ASPIRATING GASTRIC RESIDUAL, MINIMAL RESIDUAL NOTED. FEEDING HELD AT THIS TIME DUE TO PATIENT RESTLESS AND UNABLE TO KEEP HOB ELEVATED. PICC LINE NOTED ON THE TOMMY, IN PLACE AND INTACT, WITH ONGOING IVF OF D5NS AT 75CC/HR. PATIENT WITH BILATERAL SOFT RESTRAINTS IN PLACE, REMOVE AND REPLACE. PATIENT ABLE TO MOVE HANDS FREELY, PULSES PALPABLE. SAFETY MEASURES OBSERVED AND MAINTAINED. CALL LIGHT PLACED WITHIN REACH, WILL CONTINUE TO MONITOR AND ANTICIPATE NEEDS
[2019-08-08] MEDS: LORAZEPAM INJ 2 MG/ML VIAL IVP PRN ×5 (08:20→23:39)
[2019-08-08] MEDS: SEVELAMER CARBONATE 0.8 GM POWD.PACK GT SCH ×3 (08:57→17:47)
[2019-08-08] MEDS: LEVETIRACETAM SOL (5 ML) 100 MG/ML UDC GT SCH ×2 (08:58→21:20)
[2019-08-08] MEDS: LEVOTHYROXINE SODIUM 75 MCG TABLET GT SCH (08:58)
[2019-08-08] MEDS: CADEXOMER IODINE 40 GM TUBE TP SCH (09:00)
[2019-08-08] MEDS: Z GUARD REMEDY 2 OZ OINT TP SCH (09:00)
--- NOTE | 2019-08-08 13:57 | NUR ---
RN NOTES PATIENT ON DIALYSIS TREATMENT. BLOOD PICKED UP AT THE LABORATORY. BLOOD ADMINISTRATION VERIFIED WITH ARIANNA BOYER. TEMPERATURE AT 98.6 WILL CONTINUE TO MONITOR PATIENT
--- NOTE | 2019-08-08 16:30 | NUR ---
RN NOTES PATIENT WITH EPISODE OF BLOODY STOOL. DR. GOMES AND EYAD COX, YUNG MADE AWARE
--- NOTE | 2019-08-08 17:00 | NUR ---
RN NOTES SEEN AND EXAMINED BY ESPERANZA COX NP WITH ORDERS MADE. ORDERS NOTED AND CARRIED OUT
--- NOTE | 2019-08-08 18:00 | NUR ---
RN NOTES OBTAINED CONSENT FOR THE [facility] GI BLOOD LOSS ACUTE FROM SISTER WHO IS AT BEDSIDE AT THIS TIME
--- NOTE | 2019-08-08 19:20 | NUR ---
SCHEDULE MANAGER NOTE PATIENT REPORT GIVEN BEDSIDE, WITH FAMILY PRESENT. DISCUSSED WITH FAMILY VISITATION POLICY FOR ICU. FAMILY VERBALIZE UNDERSTANDING. PATIENT IN BED WITH BILATERAL SOFT WRIST RESTRAINTS AND MITTENS. PATIENT RESTLESS AND REPOSITIONED TURNED RIGHT LATERAL OFFLOADING B HEELS, LEFT SHOULDER/ L BUTTOCK/ LEFT ELBOW. PATIENT HR 95 ON THE TELE MONITOR BP WNL. ISOLATION PRECAUTIONS IN PLACE, SAFETY PRECAUTIONS IN PLACE, ASPIRATIONS PRECAUTIONS IN PLACE. RN WILL CONTINUE TO MONITOR FOR CHANGES. IV LINES PATENT AND INTACT NO S/S OF INFECTION AND INFILTRATION.
--- NOTE | 2019-08-08 19:30 | NUR ---
RN NOTES ENDORSED FOR CONTINUITY OF CARE. NOT ON ANY FORM OD DISTRESS. ALL NURSING NEEDS ATTENDED AND MET. SAFETY MEASURES IN PLACE AT ALL TIME. PATIENT STILL WITH RESTRAINTS ON
--- NOTE | 2019-08-08 22:12 | NUR ---
BI REPORT DEVELOPER NOTE SPOKE TO YUNG COX ABOUT PENDING TRANSFER TO [facility] AND NUCLEAR MEDICINE PROCEDURE. PER RAILWAY TRACTION LINE WORKER ORDER CANCEL TRANSFER AND KEEP PATIENT IN ICU FOR CLOSER OBSERVATION.
[2019-08-09] VITALS (28 sets, daily range): BP systolic 44–143; BP diastolic 20–79
[2019-08-09] MEDS: MORPHINE SULFATE INJ 2 MG/ML DISP.SYRIN IV PRN ×2 (00:45→15:54)
[2019-08-09] MEDS: POLYVINYL ALCOHOL 15 ML BOTTLE OP SCH ×6 (00:45→21:05)
[2019-08-09 04:52] LABS: BASOPHILS % (AUTO) 0.4 % (0.0-2.0); EOSINOPHILS % (AUTO) 9.4 % (0.0-6.0); HEMATOCRIT 27 % (39-51); LYMPHOCYTES # (AUTO) 1.4 /CMM (0.8-4.8); LYMPHOCYTES % (AUTO) 19.2 % (20.0-44.0); MEAN CORPUSCULAR HGB CONC 33 g/dl (31.0-36.0); MEAN CORPUSCULAR VOLUME 98 fL (80-96); MONOCYTES # (AUTO) 0.9 /CMM (0.1-1.30); MONOCYTES % (AUTO) 11.5 % (2.0-12.0); NEUTROPHILS # (AUTO) 4.4 /CMM (1.8-8.9); NEUTROPHILS % (AUTO) 59.5 % (43.0-81.0); PLATELET COUNT (AUTO) 133 /CMM (150-450); RED BLOOD CELL COUNT(AUTO) 2.74 MIL/uL (4.5-6.0); WHITE BLOOD COUNT (AUTO) 7.4 K/uL (4.3-11.0)
[2019-08-09 05:09] LABS: CALCIUM, SERUM 8.4 mg/dL (8.5-10.1); MAGNESIUM 2.3 mg/dL (1.8-2.4); PHOSPHORUS 3.7 mg/dL (2.5-4.9); POTASSIUM 3.7 mmol/L (3.5-5.1)
[2019-08-09] MEDS: METRONIDAZOLE 500MG/ NS 100ML 500 MG in PREMIX 1 EA IV SCH ×3 (06:07→21:04)
[2019-08-09] MEDS: GLYCOPYRROLATE 1 MG TABLET GT SCH ×3 (06:07→21:04)
[2019-08-09] MEDS: PANTOPRAZOLE 40 MG VIAL IV SCH ×2 (06:08→16:49)
[2019-08-09] MEDS: BLOOD SUGAR DIAGNOSTIC 1 EACH STRIP IN SCH ×4 (06:08→23:12)
--- NOTE | 2019-08-09 08:00 | NUR ---
FACULTY NEUROPSYCHOLOGIST NOTE PATIENT IN BED WITH BILATERAL SOFT WRIST RESTRAINTS AND MITTENS. PATIENT RESTLESS AND REPOSITIONED TURNED RIGHT LATERAL OFFLOADING B HEELS, LEFT SHOULDER/ L BUTTOCK/ LEFT ELBOW. PATIENT HR 105 ON THE TELE MONITOR .BP WNL. ISOLATION PRECAUTIONS IN PLACE, SAFETY PRECAUTIONS IN PLACE, ASPIRATIONS PRECAUTIONS IN PLACE. WILL CONTINUE TO MONITOR FOR CHANGES. IV LINES PATENT AND INTACT NO S/S OF INFECTION AND INFILTRATION. WITH TRACH TO COOLER AEROSOL 5L FIO2 28% , TOLERATED WELL ,RT AT BEDSIDE , WITH G TUBE FEEDING ORDERED, NO RESIDUAL NOTED ,KEEP HOB ELEVATED AT ALL TIME .RT UPPER ARM PICC LINE IN PLACE , ON IVF ORDERED
[2019-08-09] MEDS: LEVOTHYROXINE SODIUM 75 MCG TABLET GT SCH (08:21)
[2019-08-09] MEDS: LEVETIRACETAM SOL (5 ML) 100 MG/ML UDC GT SCH ×2 (08:21→21:04)
[2019-08-09] MEDS: SEVELAMER CARBONATE 0.8 GM POWD.PACK GT SCH ×3 (08:21→17:17)
[2019-08-09] MEDS: CADEXOMER IODINE 40 GM TUBE TP SCH (08:23)
[2019-08-09] MEDS: Z GUARD REMEDY 2 OZ OINT TP SCH (08:25)
[2019-08-09] MEDS: LORAZEPAM INJ 2 MG/ML VIAL IVP PRN (08:29)
--- NOTE | 2019-08-09 08:58 | NUR ---
LOFTSMAN/WOMAN NOTE VERY RESTLESS TRYING TO REMOTE ALL LINES , ATIVAN 1 MG IVP GIVEN BP 132/78 SAT 100% ,
--- NOTE | 2019-08-09 10:00 | NUR ---
agricultural education teacher note turn reposition q 2 hour , sister at bedside,keep clean dry ,no bloody stool noted at this time
--- NOTE | 2019-08-09 12:00 | NUR ---
olericulturist note taken to nuclear to do blood scan
--- NOTE | 2019-08-09 13:30 | NUR ---
SAP PI DEVELOPER NOTE BACK FROM NUCLEAR , ALL NEEDS ATTENDED
--- NOTE | 2019-08-09 15:00 | NUR ---
COAL CRUSHER OPERATOR NOTE TRACH WAS LOOSE ,RT AT BEDSIDE ,NEW ONE IS REPLACED .G TUBE WAS CLOTTED, DECLOTTED ,CONT G TUBE FEEDING ORDERED ,KEEP HOB ELEVATED AT ALL TIME
[2019-08-09 15:06] LABS: *ANCA CYTOPLASMIC (C-ANCA) <1:20 titer (Neg:<1:20); *ANCA PERINUCLEAR (P-ANCA) <1:20 titer (Neg:<1:20)
--- NOTE | 2019-08-09 16:02 | NUR ---
CLOTH PICKER NOTE VEERY RESTLESSM MORPHINE IVP GIVEN ORDERED SAT 100% BP 109/66, FAMILY AT BEDSIDE
[2019-08-09] MEDS: IV D5/ 0.9% NACL 1,000 ML IV PRN (16:12)
[2019-08-09] MEDS ORDERED: NA PHOS,M-B/NA PHOS,DI-BA 1 EA ENEMA RC PRN ×2 (17:00)
[2019-08-09] MEDS ORDERED: PEG 3350/NA SULF,BICARB,CL/KCL 4,000 ML BOTTLE PO ONE (17:00)
[2019-08-09] MEDS ORDERED: MAGNESIUM CITRATE 296 ML BOTTLE PO ONE (17:00)
--- NOTE | 2019-08-09 18:17 | NUR ---
BILL BOARD POSTER NOTE CONSENT FOR EGD AND COLONOSCOPY BY SISTER EYAD NP GI AT BEDSIDE
--- NOTE | 2019-08-09 18:33 | NUR ---
CAR BUILDER NOTE STARTED IVF AT 100 ML PER HOUR ORDERED FAMILY AT BEDSIDE
--- NOTE | 2019-08-09 19:22 | NUR ---
ELECTRIC DEICER INSPECTOR NOTES, PATIENT IN BED ASLEEP AT THIS TIME, ONT-PIECE WITH 100% O2 SAT LEVEL AT THIS TIME, NO SOB/ACUTE DISTRESS NOTED AT THIS TIME, ST ON VISUALIZATION DEVELOPER WITH HR IN THE 09S AT THIS TIME, NO S/S OF PAIN OR DISCOMFORT NOTED, BILATERAL WRIST RESTRAINTS IN PLACE WELL BILATERAL MITTENS, NO ABNORMALITY NOTED AT SITE, NO CIRCULATION COMPROMISED, GT PATENT IN PLACE, FEEDING ON HOLD, AND PATIENT TON GOLYTELY FOR EGD/COLONOSCOPY IN THE MORNING, KEPT CLEAN AND DRY, HUAN PICC LINE IN PLACED, PATENT AND INTACT, D5 NS AT 100/ML/HR INFUSING WELL, AND PATIENT TOLERATED WELL, HOB ELEVATED AT ALL TIMES FOR ASPIRATION PRECAUTIONS, SIDE RAILS UP AND LOCKED, BED LOCKED, AND IN LOWEST POSITION, WILL CONTINUE TO MONITOR CLOSELY.
[2019-08-09] MEDS: INSULIN REGULAR, HUMAN 100 UNIT/ML 3 ML VIAL SQ PRN (23:13)
[2019-08-10] VITALS (26 sets, daily range): BP systolic 91–135; BP diastolic 53–96
[2019-08-10] MEDS: LORAZEPAM INJ 2 MG/ML VIAL IVP PRN ×4 (00:47→21:57)
[2019-08-10] MEDS: POLYVINYL ALCOHOL 15 ML BOTTLE OP SCH ×6 (01:31→21:57)
[2019-08-10] MEDS: METRONIDAZOLE 500MG/ NS 100ML 500 MG in PREMIX 1 EA IV SCH ×3 (04:59→21:57)
[2019-08-10] MEDS: IV D5/ 0.9% NACL 1,000 ML IV PRN ×2 (04:59→18:36)
[2019-08-10] MEDS: GLYCOPYRROLATE 1 MG TABLET GT SCH ×3 (05:00→21:57)
[2019-08-10] MEDS: PANTOPRAZOLE 40 MG VIAL IV SCH ×2 (05:02→17:13)
[2019-08-10 05:05] LABS: BASOPHILS % (AUTO) 0.7 % (0.0-2.0); EOSINOPHILS % (AUTO) 10.1 % (0.0-6.0); HEMATOCRIT 26 % (39-51); HEMOGLOBIN 8.5 g/dL (13.5-17.5); LYMPHOCYTES # (AUTO) 1.4 /CMM (0.8-4.8); LYMPHOCYTES % (AUTO) 20.3 % (20.0-44.0); MEAN CORPUSCULAR HGB CONC 33 g/dl (31.0-36.0); MEAN CORPUSCULAR VOLUME 99 fL (80-96); MONOCYTES # (AUTO) 0.9 /CMM (0.1-1.30); MONOCYTES % (AUTO) 12.5 % (2.0-12.0); NEUTROPHILS # (AUTO) 3.9 /CMM (1.8-8.9); NEUTROPHILS % (AUTO) 56.4 % (43.0-81.0); PLATELET COUNT (AUTO) 143 /CMM (150-450); RED BLOOD CELL COUNT(AUTO) 2.62 MIL/uL (4.5-6.0); WHITE BLOOD COUNT (AUTO) 6.9 K/uL (4.3-11.0)
[2019-08-10 05:24] LABS: CALCIUM, SERUM 8.2 mg/dL (8.5-10.1); CREATININE 5.2 mg/dL (0.6-1.3); PHOSPHORUS 3.7 mg/dL (2.5-4.9); POTASSIUM 3.8 mmol/L (3.5-5.1)
[2019-08-10] MEDS: BLOOD SUGAR DIAGNOSTIC 1 EACH STRIP IN SCH ×3 (06:39→17:34)
[2019-08-10] MEDS: INSULIN REGULAR, HUMAN 100 UNIT/ML 3 ML VIAL SQ PRN (06:40)
--- NOTE | 2019-08-10 07:17 | NUR ---
SCHOOL CROSSING GUARD NOTES, PATIENT IN BED RESTLESSNESS, ONT-PIECE WITH 100% O2 SAT LEVEL MOST OF THE NIGHT, NO SOB/ACUTE DISTRESS NOTED AT THIS TIME, ST ON PHOTOGRAPH FINISHER WITH HR IN THE 90-110 AT THIS TIME, NO S/S OF PAIN OR DISCOMFORT NOTED, BILATERAL WRIST RESTRAINTS IN PLACE WELL BILATERAL MITTENS, NO ABNORMALITY NOTED AT SITE, NO CIRCULATION COMPROMISED, NPO SINCE LAST NIGHT, FOR EGD/COLONOSCOPY IN THE MORNING, SEVERAL BOWEL MOVEMENTS DUE TO GOLITLY, KEPT CLEAN AND DRY, HUAN PICC LINE IN PLACED, PATENT AND INTACT, D5 NS AT 100/ML/HR INFUSING WELL, AND PATIENT TOLERATED WELL, HOB ELEVATED AT ALL TIMES FOR ASPIRATION PRECAUTIONS, SIDE RAILS UP AND LOCKED, BED LOCKED, AND IN LOWEST POSITION, NO SIGNIFICANT CHANGE IN CONDITION DURING THE NIGHT, ENDORSED CONTINUITY OF CARE TO ARIANNA HODGE.
--- NOTE | 2019-08-10 07:30 | NUR ---
RN NOTES RECEIVED PATIENT IN BED, WITH SPONTANEOUS EYE OPENING, UNABLE TO CONVERSE. RESTLESS. NOT ON ANY FOR OF DISTRESS. ON T PIECE WITH OXYGEN AT 28% FI02, TOLERATING WELL. NOT ON ANY FORM OF DISTRESS. NO INDICATION OF PAIN NOTED AT THIS TIME. SINUS TACHY ON THE MONITOR WITH HR ON THE 103. HD CATH ON THE LEFT UPPER CHEST WALL, IN PLACE AND INTACT, DRESSING CLEAN AND DRY. GT IN PLACE, PLACEMENT CONFIRMED BY AUSCULTATION. FEEDING HELD AT THIS TIME DUE TO PATIENT ON NPO STATUS. PICC LINE NOTED ON THE TOMMY, IN PLACE AND INTACT, WITH ONGOING IVF OF D5NS AT 100CC/HR. PATIENT WITH BILATERAL SOFT RESTRAINTS AND MITTENS ON. IN PLACE, REMOVE AND REPLACE. PATIENT ABLE TO MOVE HANDS FREELY, PULSES PALPABLE. SAFETY MEASURES OBSERVED AND MAINTAINED. CALL LIGHT PLACED WITHIN REACH, WILL CONTINUE TO MONITOR AND ANTICIPATE NEEDS
[2019-08-10] MEDS: SEVELAMER CARBONATE 0.8 GM POWD.PACK GT SCH ×3 (08:00→17:13)
--- NOTE | 2019-08-10 08:15 | NUR ---
SUCCESSFULLY EMERGENCY TRACH CHANGED WITH SAME SIZE [place] 6 DCT DUE TO PT. SELF DECANNULATION. BREATH SOUNDS BILATERAL COARSE RHONCHI POST TRACH CHANGED. Addendum: 08/10/19 at 0859 by KYLE JIMENEZ RT Amended: Links added.
--- NOTE | 2019-08-10 08:15 | NUR ---
RN NOTES CHARGE NURSE HAD INFORMED ME THAT PATIENT IS OUT OF THE MONITOR. WENT TO BEDSIDE TO CHECK ON TO WHY IS THAT. PATIENT THEN NOTED WITH TELEMONITOR LEADS OFF, PATIENT DECANNULATED HIMSELF AND HEMODIALYSIS LINE PULLED OUT WITH MINIMAL BLEEDING ON THE SITE OF INSERTION. KYLE YANG (WHOSE ON THE UNIT) CALLED FOR HELP. TRACH TUBE REINSERTED, HEMODIALYSIS SITE APPLIED WITH DRESSING. PRN ATIVAN 1 MG IV ADMINISTERED. REAPPLIED RESTRAINTS. WILL CONTINUE TO MONITOR
[2019-08-10] MEDS: LEVOTHYROXINE SODIUM 75 MCG TABLET GT SCH (09:00)
[2019-08-10] MEDS: LEVETIRACETAM SOL (5 ML) 100 MG/ML UDC GT SCH ×2 (09:00→21:57)
[2019-08-10] MEDS: CADEXOMER IODINE 40 GM TUBE TP SCH (09:01)
[2019-08-10] MEDS: Z GUARD REMEDY 2 OZ OINT TP SCH (09:05)
--- NOTE | 2019-08-10 10:30 | NUR ---
RN NOTES EGD AND COLONOSCOPY STARTED AT THIS TIME
--- NOTE | 2019-08-10 10:50 | NUR ---
RN NOTES DR. FAUSTIN AT THE UNIT. INFORMED BY THE CHARGE NURSE (ARDWAYNE) ABOUT PATIENT PULLING OUT THE HD CATH. PER THE MD , HE WILL INFORM DR HALEY FOR REINSERTION OF HD CATH
[2019-08-10] MEDS: NEPRO 1,000 ML BOTTLE GT PRN (11:44)
--- NOTE | 2019-08-10 16:00 | NUR ---
RN NOTES INFORMED DR. HALEY REGARDING PATIENT'S SITUATION AND OF DR. FAUSTIN VERBALIZING ABOUT REFERRING PATIENT TO HIM FOR HD CATH INSERTION. PER MD HE IS AWARE AND WILL COME AND SEE THE PATIENT. FAMILY MADE AWARE
--- NOTE | 2019-08-10 17:00 | NUR ---
RN NOTES SEEN BY DR. HALEY. PER MD, WILL SCHEDULE PATIENT FOR CATHETER INSERTION ON THURSDAY.
--- NOTE | 2019-08-10 19:22 | NUR ---
RN NOTES ENDORSED FOR CONTINUITY OF CARE. NO ACUTE CHANGES WITHIN THE SHIFT. NOT ON ANY FORM OF DISTRESS. ALL NURSING NEEDS ATTENDED AND MET. SAFETY MEASURES IN PLACE AT ALL TIMES. CALL LIGHT WITHIN REACH. IMPLEMENTED ISOLATION PRECAUTION AT ALL TIMES
[2019-08-11] VITALS (19 sets, daily range): BP systolic 58–139; BP diastolic 33–78
[2019-08-11] MEDS: BLOOD SUGAR DIAGNOSTIC 1 EACH STRIP IN SCH ×5 (00:51→23:46)
[2019-08-11] MEDS: POLYVINYL ALCOHOL 15 ML BOTTLE OP SCH ×6 (00:51→21:36)
[2019-08-11] MEDS: LORAZEPAM INJ 2 MG/ML VIAL IVP PRN ×5 (03:07→21:36)
[2019-08-11 04:10] LABS: BASOPHILS % (AUTO) 0.5 % (0.0-2.0); EOSINOPHILS % (AUTO) 11.5 % (0.0-6.0); HEMATOCRIT 26 % (39-51); HEMOGLOBIN 8.3 g/dL (13.5-17.5); LYMPHOCYTES # (AUTO) 1.5 /CMM (0.8-4.8); LYMPHOCYTES % (AUTO) 23.3 % (20.0-44.0); MEAN CORPUSCULAR HGB CONC 32 g/dl (31.0-36.0); MEAN CORPUSCULAR VOLUME 100 fL (80-96); MONOCYTES # (AUTO) 0.8 /CMM (0.1-1.30); MONOCYTES % (AUTO) 12.8 % (2.0-12.0); NEUTROPHILS # (AUTO) 3.2 /CMM (1.8-8.9); NEUTROPHILS % (AUTO) 51.9 % (43.0-81.0); PLATELET COUNT (AUTO) 157 /CMM (150-450); RED BLOOD CELL COUNT(AUTO) 2.59 MIL/uL (4.5-6.0); WHITE BLOOD COUNT (AUTO) 6.2 K/uL (4.3-11.0)
[2019-08-11 04:22] LABS: CALCIUM, SERUM 8.2 mg/dL (8.5-10.1); CREATININE 6.2 mg/dL (0.6-1.3); MAGNESIUM 2.1 mg/dL (1.8-2.4); PHOSPHORUS 4.3 mg/dL (2.5-4.9); POTASSIUM 3.8 mmol/L (3.5-5.1)
[2019-08-11] MEDS: GLYCOPYRROLATE 1 MG TABLET GT SCH ×3 (05:26→21:36)
[2019-08-11] MEDS: METRONIDAZOLE 500MG/ NS 100ML 500 MG in PREMIX 1 EA IV SCH (05:27)
[2019-08-11] MEDS: PANTOPRAZOLE 40 MG VIAL IV SCH ×2 (05:27→08:54)
--- NOTE | 2019-08-11 07:00 | NUR ---
PICKLE PROCESSOR AM NOTE PATIENT IN ICU DUE TO SEPTIC SHOCK AND GI BLEED. PRESSURE WAS LOW BUT WNL FOR PATIENT MD AWARE. FLUIDS GIVEN PER MD ORDER. SR ON MONITOR. RIGHT UPPER ARM PICCLINE PATENT AND INTACT. GTUBE PATENT AND INTACT, N0 RESIDUAL AT THIS TIME. BLOOD SUGAR WNL NO COVERAGE NEEDED. PATIENT HAD GI BLEED EGD DONE MD ORDERED TUBE FEEDING TO START AT 20 AND GOAL OF 60. TOLERATING WELL AT THIS TIME. ADVANCE FEEDING MONTIOR FOR BLOOD IN STOOL ABDOMINAL DISTENTION AND HYPOTENSION. RESTRAINTS ENCOURAGED PATIENT HAS PULLED OUT MULTIPLE TUBES SINCE ADMISSION, CHECK PULSE AND CIRCULATION THROUGH OUT SHIFT. BED LOW TO FLOOR SISTER AT BEDSIDE. VITALS WNL.
[2019-08-11] MEDS: LEVETIRACETAM SOL (5 ML) 100 MG/ML UDC GT SCH ×2 (08:54→21:36)
[2019-08-11] MEDS: LEVOTHYROXINE SODIUM 75 MCG TABLET GT SCH (08:54)
[2019-08-11] MEDS: SEVELAMER CARBONATE 0.8 GM POWD.PACK GT SCH ×3 (08:54→17:19)
[2019-08-11] MEDS: Z GUARD REMEDY 2 OZ OINT TP PRN ×2 (08:55→09:47)
[2019-08-11] MEDS: CADEXOMER IODINE 40 GM TUBE TP SCH (09:47)
[2019-08-11] MEDS: Z GUARD REMEDY 2 OZ OINT TP SCH (09:48)
[2019-08-11] MEDS: IV D5/ 0.9% NACL 1,000 ML IV PRN (09:52)
--- NOTE | 2019-08-11 14:00 | NUR ---
WINDOW TRIMMER APPRENTICE DR NOTE WOUND DR ORDERED DEBRA FOR LEFT TOE WOUND. COVER WITH MEPILEX OR GAUZE NEEDED.
[2019-08-11] MEDS ORDERED: NEPRO 1,000 ML BOTTLE GT PRN (14:37)
--- NOTE | 2019-08-11 18:29 | NUR ---
RN OPHELIA CLOSING NOTE PATIENT IN ICU DUE TO SEPTIC SHOCK AND GI BLEED. PRESSURE WAS LOW BUT WNL FOR PATIENT MD AWARE. FLUIDS GIVEN PER MD ORDER. SR ON MONITOR. RIGHT UPPER ARM PICCLINE PATENT AND INTACT. GTUBE PATENT AND INTACT, N0 RESIDUAL AT THIS TIME. BLOOD SUGAR WNL NO COVERAGE NEEDED. PATIENT HAD GI BLEED EGD DONE MD ORDERED TUBE FEEDING TO START AT 20 AND GOAL OF 60. TOLERATING WELL AT THIS TIME. ADVANCE FEEDING MONTIOR FOR BLOOD IN STOOL ABDOMINAL DISTENTION AND HYPOTENSION. CONSENT FOR PERMACATH SINGED BY FAMILY AND IN CHART , TO BE DONE THURSDAY AT BEDSIDE. RESTRAINTS ENCOURAGED PATIENT HAS PULLED OUT MULTIPLE TUBES SINCE ADMISSION, CHECK PULSE AND CIRCULATION THROUGH OUT SHIFT. BED LOW TO FLOOR SISTER AT BEDSIDE. VITALS WNL.
--- NOTE | 2019-08-11 20:00 | NUR ---
OPHELIA RN NOTES RECEIVED BEDSIDE REPORT FROM AM RN. PATIENT IN BED AWAKE, AGITATED AND MOVING IN BED CONSTANTLY AND TRYING TO REMOVE BOTH WRIST SOFT RESTRAINS. SISTER IS AT THE BEDSIDE. PATIENT HAS BILATERAL SOFT WRIST RESTRAINS WITH MITTENS IN PLACE, PT IS NON VERBAL BUT OPENS EYES. SR ON QUALITY COMPLIANCE MANAGER. PT HAS TRACH WITH COOL AEROSOL 28% O2. ON GTF NEPRO AT 25ML/HR WITHOUT RESIDUAL. RIGHT UPPER ARM PICC LINE IS IN PLACE PATIENT AND INTACT WITH IV FLUIDS ORDERED. NO BLEEDING NOTED AT THIS TIME. ALL SAFETY MEASURES ARE IN PLACE, BED IN LOW, LOCKED POSITION, CALL LIGHT IN REACH. WILL CONTINUE TO MONITOR PATIENT CLOSELY.
--- NOTE | 2019-08-11 20:29 | NUR ---
RT NOTE PT RECEIVED TRACHED ON COOL AEROSOL @ 28%. WATER LEVEL GOOD. AMBU BAG/BACK UP TRACH @ BEDSIDE. SX DONE, TRACH SECURED AND PATENT. NO SOB NOTED AT THIS TIME. WILL MONITOR T/O SHIFT. Addendum: 08/11/19 at 2030 by RICK JOSE RT Amended: Links added.
--- NOTE | 2019-08-11 21:40 | NUR ---
PATIENT IS AGITATED , MOVING A LOT AND TRYING TO REMOVE RESTRAINS. ATIVAN IVP 1MG HAS BEEN ADMINISTERED. WILL CONTINUE TO MONITOR PATIENT.
[2019-08-11] MEDS ORDERED: diphenhydrAMINE HCL ELIX 25 MG/10 ML UDC PO ONE (23:30)
--- NOTE | 2019-08-11 23:30 | NUR ---
rn notes Patient has itching on my assessment . MD Williams Monet is in the unit and aware of it. new verbal order of Dephinhydramine HCL 25mg po one time is in place. read back has been done. will administer the medication and will continue to monitor the patient closely.
[2019-08-12] VITALS: BP 122/76
[2019-08-12] MEDS: IV D5/ 0.9% NACL 1,000 ML IV PRN (00:19)
[2019-08-12] MEDS: POLYVINYL ALCOHOL 15 ML BOTTLE OP SCH ×6 (01:17→21:58)
[2019-08-12] MEDS: LORAZEPAM INJ 2 MG/ML VIAL IVP PRN ×2 (03:01→19:44)
[2019-08-12 04:00] VITALS: BP 110/75
[2019-08-12] MEDS: PANTOPRAZOLE 40 MG VIAL IV SCH ×2 (05:20→16:56)
[2019-08-12] MEDS: BLOOD SUGAR DIAGNOSTIC 1 EACH STRIP IN SCH ×4 (05:20→23:53)
[2019-08-12] MEDS: GLYCOPYRROLATE 1 MG TABLET GT SCH ×3 (05:20→21:43)
[2019-08-12] MEDS: INSULIN REGULAR, HUMAN 100 UNIT/ML 3 ML VIAL SQ PRN (06:34)
[2019-08-12 07:12] LABS: HEMATOCRIT 24 % (39-51); HEMOGLOBIN 7.8 g/dL (13.5-17.5); LYMPHOCYTES # (AUTO) 0.8 /CMM (0.8-4.8); LYMPHOCYTES % (AUTO) 14.3 % (20.0-44.0); MEAN CORPUSCULAR HGB CONC 32 g/dl (31.0-36.0); MEAN CORPUSCULAR VOLUME 101 fL (80-96); MONOCYTES # (AUTO) 0.5 /CMM (0.1-1.30); MONOCYTES % (AUTO) 9.5 % (2.0-12.0); NEUTROPHILS # (AUTO) 3.3 /CMM (1.8-8.9); NEUTROPHILS % (AUTO) 57.2 % (43.0-81.0); PLATELET COUNT (AUTO) 148 /CMM (150-450); RED BLOOD CELL COUNT(AUTO) 2.41 MIL/uL (4.5-6.0); WHITE BLOOD COUNT (AUTO) 5.7 K/uL (4.3-11.0)
[2019-08-12 07:28] LABS: CALCIUM, SERUM 8.1 mg/dL (8.5-10.1); CREATININE 6.9 mg/dL (0.6-1.3); MAGNESIUM 2.1 mg/dL (1.8-2.4); PHOSPHORUS 4.4 mg/dL (2.5-4.9); POTASSIUM 3.6 mmol/L (3.5-5.1)
[2019-08-12 08:00] VITALS: BP 111/70
[2019-08-12] MEDS: SEVELAMER CARBONATE 0.8 GM POWD.PACK GT SCH ×3 (08:00→18:41)
--- NOTE | 2019-08-12 08:00 | NUR ---
OPHELIA/RN PT IS IN THE BED CHRONIC TRACH T-TUBE 28%,SAT O2-99%.V/S STABLE AFEBRILE NO PAIN REPORTED AT THIS TIME.NPO.G-TUBE CLAMPED.PT IS WAITING FOR NEW HD CATH PLACEMENT.IV INFUSING ORDERED.PT IS AGITATED.BILATERAL SOFT WRIST RESTRAINS AND MITTENS ON.REPOSITION FOR COMFORT.CONTINUE MONITORING.
[2019-08-12] MEDS: LEVOTHYROXINE SODIUM 75 MCG TABLET GT SCH (08:56)
[2019-08-12] MEDS: LEVETIRACETAM SOL (5 ML) 100 MG/ML UDC GT SCH ×2 (08:56→21:43)
[2019-08-12] MEDS: CADEXOMER IODINE 40 GM TUBE TP SCH (08:57)
[2019-08-12] MEDS: THERAHONEY GEL 1.5 OZ TUBE TP SCH (08:58)
[2019-08-12] MEDS: Z GUARD REMEDY 2 OZ OINT TP SCH (08:58)
[2019-08-12 12:00] VITALS: BP 100/68
[2019-08-12] MEDS ORDERED: LIDOCAINE HCL/PF 1% 30 ML SDV ONE (12:38)
[2019-08-12] MEDS ORDERED: HEPARIN SODIUM, PORCINE 1,000 UNIT/ML VIAL ONE (12:38)
--- NOTE | 2019-08-12 14:35 | NUR ---
OPHELIA/RN PT IS BACK FROM SURGERY ROOM ,NEW HD CATH PLACED ON THE RIGHT SUBCLAVIAN AREA.NO S/S OF BLEEDING NOTED.V/S STABLE ,AFEBRILE.CHEST X-RAY DONE.
[2019-08-12] MEDS ORDERED: IV D5W 1,000 ML IV ONE (15:30)
[2019-08-12 16:00] VITALS: BP 99/68
[2019-08-12] MEDS: MINERAL OIL/PETROLATUM,WHITE 120 GM JAR TP PRN (16:56)
--- NOTE | 2019-08-12 17:00 | NUR ---
OPHELIA/RN DUE MEDS ARE GIVEN ORDERED,PM CARE PROVIDED.WOUND DRESSING DONE ORDERED,SUCTION PROVIDED.REPOSITION FOR COMFORT.G-TUBE FEEDING RESTARTED.CONTINUE MONITORING.
--- NOTE | 2019-08-12 17:51 | NUR ---
OPHELIA/RN PT HAS HD.SITTER AND HD NURSE AT BEDSIDE.
--- NOTE | 2019-08-12 20:22 | NUR ---
OPHELIA/RN INITIAL NOTE RECEIVED BEDSIDE REPORT FROM AM RN. PATIENT IN BED AWAKE, AGITATED AND MOVING IN BED CONSTANTLY AND TRYING TO REMOVE BOTH WRIST SOFT RESTRAINS. SISTER IS AT THE BEDSIDE. PATIENT HAS BILATERAL SOFT WRIST RESTRAINS WITH MITTENS IN PLACE, PT IS NON VERBAL BUT OPENS EYES. SR ON GLUE BONE DRIER SR. PT HAS TRACH WITH COOL AEROSOL 28% O2. ON GTF NEPRO AT 40ML/HR WITHOUT RESIDUAL. RIGHT UPPER ARM PICC LINE IS IN PLACE PATIENT AND INTACT WITH IV D5NS@75ML/HR ORDERED, S/P PERM ACATH RCW, HD DONE 2 L/O/P. NO BLEEDING NOTED AT THIS TIME. ALL SAFETY MEASURES ARE IN PLACE, BED IN LOW, LOCKED POSITION, WILL CONTINUE TO MONITOR PATIENT CLOSELY.
[2019-08-12 20:40] VITALS: BP 125/78
[2019-08-12] MEDS: MORPHINE SULFATE INJ 2 MG/ML DISP.SYRIN IV PRN (21:44)
[2019-08-13 00:14] VITALS: BP 121/77
[2019-08-13] MEDS: LORAZEPAM INJ 2 MG/ML VIAL IVP PRN ×5 (01:03→22:45)
[2019-08-13] MEDS: POLYVINYL ALCOHOL 15 ML BOTTLE OP SCH ×6 (01:06→22:45)
[2019-08-13 04:18] VITALS: BP 125/74
[2019-08-13] MEDS: GLYCOPYRROLATE 1 MG TABLET GT SCH ×3 (05:28→22:44)
[2019-08-13] MEDS: PANTOPRAZOLE 40 MG VIAL IV SCH ×2 (05:28→17:39)
[2019-08-13] MEDS: BLOOD SUGAR DIAGNOSTIC 1 EACH STRIP IN SCH ×3 (05:29→17:58)
--- NOTE | 2019-08-13 06:45 | NUR ---
OPHELIA/RN CLOSING NOTE ENDORSED PATIENT IN BED AWAKE, AGITATED AND MOVING IN BED CONSTANTLY AND TRYING TO REMOVE BOTH WRIST SOFT RESTRAINS. SISTER IS AT THE BEDSIDE. PATIENT HAS BILATERAL SOFT WRIST RESTRAINS WITH MITTENS IN PLACE, PT IS NON VERBAL BUT OPENS EYES. SR ON FISHING INSTRUCTOR SR. PT HAS TRACH WITH COOL AEROSOL 28% O2. ON GTF NEPRO AT 40ML/HR WITHOUT RESIDUAL. RIGHT UPPER ARM PICC LINE IS IN PLACE PATIENT AND INTACT WITH IV D5NS@75ML/HR ORDERED, S/P PERM ACATH RCW, HD DONE 2 L/O/P. NO BLEEDING NOTED AT THIS TIME. ALL SAFETY MEASURES ARE IN PLACE, BED IN LOW, LOCKED POSITION, WILL CONTINUE TO MONITOR PATIENT CLOSELY.
[2019-08-13 07:21] LABS: BASOPHILS % (AUTO) 0.4 % (0.0-2.0); EOSINOPHILS % (AUTO) 10.3 % (0.0-6.0); HEMATOCRIT 27 % (39-51); HEMOGLOBIN 8.6 g/dL (13.5-17.5); LYMPHOCYTES # (AUTO) 1.5 /CMM (0.8-4.8); LYMPHOCYTES % (AUTO) 23.3 % (20.0-44.0); MEAN CORPUSCULAR HGB CONC 32 g/dl (31.0-36.0); MEAN CORPUSCULAR VOLUME 100 fL (80-96); MONOCYTES # (AUTO) 0.7 /CMM (0.1-1.30); MONOCYTES % (AUTO) 11.5 % (2.0-12.0); NEUTROPHILS # (AUTO) 3.5 /CMM (1.8-8.9); NEUTROPHILS % (AUTO) 54.5 % (43.0-81.0); PLATELET COUNT (AUTO) 146 /CMM (150-450); RED BLOOD CELL COUNT(AUTO) 2.71 MIL/uL (4.5-6.0); WHITE BLOOD COUNT (AUTO) 6.4 K/uL (4.3-11.0)
--- NOTE | 2019-08-13 07:30 | NUR ---
television host notes received pt in bed, pulling at tubes/lines/iv; kicking legs. pt on cool aerosol FIO2 28%. vs wnl. no s/sx of resp distress. HUAN PICC patent/flushed. Nepro running at 25ml/hr. goal rate 55m/hr. will reassess and titrate up as tolerated. safety measures in place. sitter at bedside. will cont to monitor.
[2019-08-13 07:32] LABS: CALCIUM, SERUM 8.2 mg/dL (8.5-10.1); CREATININE 5.8 mg/dL (0.6-1.3); MAGNESIUM 1.9 mg/dL (1.8-2.4); PHOSPHORUS 3.3 mg/dL (2.5-4.9)
[2019-08-13 08:00] VITALS: BP 140/69
[2019-08-13] MEDS: LEVOTHYROXINE SODIUM 75 MCG TABLET GT SCH (08:11)
[2019-08-13] MEDS: SEVELAMER CARBONATE 0.8 GM POWD.PACK GT SCH ×3 (08:11→17:39)
[2019-08-13] MEDS: LEVETIRACETAM SOL (5 ML) 100 MG/ML UDC GT SCH ×2 (08:11→22:44)
[2019-08-13] MEDS: Z GUARD REMEDY 2 OZ OINT TP SCH (08:24)
[2019-08-13] MEDS: CADEXOMER IODINE 40 GM TUBE TP SCH (08:25)
[2019-08-13] MEDS: THERAHONEY GEL 1.5 OZ TUBE TP SCH (08:36)
[2019-08-13 12:00] VITALS: BP 97/82
--- NOTE | 2019-08-13 14:00 | NUR ---
furniture refinisher notes pt received HD today. 1.5 L out. bp wnl. will cont to monitor.
[2019-08-13 16:00] VITALS: BP 98/61
--- NOTE | 2019-08-13 16:16 | NUR ---
telephone service representative notes pt pulled out trach. reinserted and called rt. ordered stat abg. Addendum: 08/13/19 at 1647 by ROSY MCNEIL RN per rt, pt stabilized on trach. spo2 wnl. pt skin color returned to normal pigmentation. breath sounds auscultated bilaterally.
--- NOTE | 2019-08-13 16:53 | NUR ---
PT. SELF DECANNULATED AND RN SUCCESSFULLY RECANNULATED THE PT. UPON ASSESSMENT PATIENT HAD EQUAL CHEST RISE AND BILATERAL CLEAR BREATH SOUNDS. SPO2 97% HR 100 BPM. NO SOB NOTED. TRACH CARE WAS PERFORMED. Addendum: 08/13/19 at 1656 by MONALISA BLANKENSHIP RT Amended: Links added.
--- NOTE | 2019-08-13 18:54 | NUR ---
television installer end of shift notes pt stable in bed, no s/sx of resp distress. vss. pt asleep with sitter at bedside. on tele sr/st. nepro running at 40ml/hr. goal rate of 55 ml/hr. blayne picc line patent/flushed. safety measures in place. isolation maintained. endorsed to pm nurse for dilma.
[2019-08-13 20:00] VITALS: BP 114/75
--- NOTE | 2019-08-13 23:00 | NUR ---
SUPERVISOR LITHARGE: REASSESSED AFTER GIVEN ATIVAN WT MINIMAL EFFECT. CONTINUED TO BE RESTLESS M/B KICKING AND TRYING TO REACH LIFE-SUSTAINING TUBES. SITTER AT BEDSIDE. BILAT. MITTENS WT SOF WRIST RESTRAINTS IN PLACE. SKIN AND CIRCULATION WNL. BED IN LOWEST POSITION WT BRAKES AND BED ALARM ON, SIDE RAILS UP X2. WILL CONTINUE TO MONITOR.
[2019-08-14] VITALS: BP 115/69
[2019-08-14] MEDS: BLOOD SUGAR DIAGNOSTIC 1 EACH STRIP IN SCH ×5 (01:05→23:38)
[2019-08-14] MEDS: POLYVINYL ALCOHOL 15 ML BOTTLE OP SCH ×6 (01:06→21:00)
[2019-08-14] MEDS: NEPRO 1,000 ML BOTTLE GT PRN ×2 (01:19→23:10)
[2019-08-14] MEDS: MORPHINE SULFATE INJ 2 MG/ML DISP.SYRIN IV PRN ×2 (01:20→23:11)
[2019-08-14 04:00] VITALS: BP 117/65
--- NOTE | 2019-08-14 05:41 | NUR ---
PATIENT RECEIVED ON 28% AEROSOL T-TUBE, TOLERATING WITH NO DISTRESS/SOB NOTED. SUCTIONED FOR MINIMAL, THIN, YELLOW SECRETIONS. AMBU BAG AT BEDSIDE. TRACH CARE DONE. Addendum: 08/14/19 at 0542 by RADHA MCLAIN RT Amended: Links added.
[2019-08-14] MEDS: GLYCOPYRROLATE 1 MG TABLET GT SCH ×3 (05:52→22:33)
[2019-08-14] MEDS: PANTOPRAZOLE 40 MG VIAL IV SCH ×2 (05:54→18:07)
--- NOTE | 2019-08-14 06:30 | NUR ---
GLOBAL REGULATORY AFFAIRS MANAGER: NO SIGNIFICANT CABRERA DURING THE SHIFT. NO ACUTE DISTRESS NOTED. STILL WT EPISODES OF TRYING TO PULL TUBINGS AND KICKING. SITTER AT BEDSIDE. SAFETY PRECAUTION NOTED AT ALL TIMES.
[2019-08-14 06:58] LABS: BASOPHILS % (AUTO) 0.5 % (0.0-2.0); EOSINOPHILS % (AUTO) 11.2 % (0.0-6.0); HEMATOCRIT 24 % (39-51); HEMOGLOBIN 7.9 g/dL (13.5-17.5); LYMPHOCYTES # (AUTO) 1.4 /CMM (0.8-4.8); LYMPHOCYTES % (AUTO) 20.7 % (20.0-44.0); MEAN CORPUSCULAR HGB CONC 33 g/dl (31.0-36.0); MEAN CORPUSCULAR VOLUME 98 fL (80-96); MONOCYTES # (AUTO) 0.6 /CMM (0.1-1.30); MONOCYTES % (AUTO) 9.3 % (2.0-12.0); NEUTROPHILS # (AUTO) 3.9 /CMM (1.8-8.9); NEUTROPHILS % (AUTO) 58.3 % (43.0-81.0); PLATELET COUNT (AUTO) 121 /CMM (150-450); RED BLOOD CELL COUNT(AUTO) 2.45 MIL/uL (4.5-6.0); WHITE BLOOD COUNT (AUTO) 6.8 K/uL (4.3-11.0)
--- NOTE | 2019-08-14 07:00 | NUR ---
SLUDGE CONTROL ATTENDANT NOTES PATIENT IS A/OX1 ABUSABLE BY TOUCH. ON COOL AEROSOL WITH TOMMY PICC LINE TKO 5ML/H. NO SOB OR DISCOMFORT NOTED AT THIS TIME. BED LOCKED AT THE LOWEST POSITION SIDE RAILS UP CALL LIGHT WITHIN REACH. WILL CONTINUE TO MONITOR THE PT.
[2019-08-14 07:34] LABS: CALCIUM, SERUM 8.5 mg/dL (8.5-10.1); CREATININE 4.9 mg/dL (0.6-1.3); POTASSIUM 3.7 mmol/L (3.5-5.1)
[2019-08-14 08:00] VITALS: BP 104/57
[2019-08-14] MEDS: SEVELAMER CARBONATE 0.8 GM POWD.PACK GT SCH ×3 (09:47→18:07)
[2019-08-14] MEDS: LEVOTHYROXINE SODIUM 75 MCG TABLET GT SCH (09:48)
[2019-08-14] MEDS: LEVETIRACETAM SOL (5 ML) 100 MG/ML UDC GT SCH ×2 (09:48→22:33)
[2019-08-14] MEDS: CADEXOMER IODINE 40 GM TUBE TP SCH (10:05)
[2019-08-14] MEDS: Z GUARD REMEDY 2 OZ OINT TP SCH (10:06)
[2019-08-14] MEDS: THERAHONEY GEL 1.5 OZ TUBE TP SCH (10:45)
[2019-08-14 12:00] VITALS: BP 98/61
[2019-08-14] MEDS: LORAZEPAM INJ 2 MG/ML VIAL IVP PRN ×2 (14:08→22:32)
--- NOTE | 2019-08-14 14:08 | NUR ---
CHAINER NOTES FAMILY MEMBER MOTHER AT BED SIDE. PT IS AGITATED AND IS KICKING AND MOVING HIS HAND WHEN GIVING CARE. ATIVAN GIVEN.
[2019-08-14 16:00] VITALS: BP 117/74
--- NOTE | 2019-08-14 17:13 | NUR ---
RT NOTE PATIENT RECEIVED ON TRACH WITH COOL AEROSOL. TRACH IS PATENT AND SECURED. BVM IS AT BEDSIDE. PT. HAS EQUAL CHEST RISE WITH CLEAR AND COARSE BILATERAL BREATH SOUNDS. SX. MINIMAL WHITE THICK SECRETIONS T/O THE DAY. NO SOB NOTED. Addendum: 08/14/19 at 1716 by MONALISA BLANKENSHIP RT Amended: Links added.
--- NOTE | 2019-08-14 19:54 | NUR ---
GEOLOGY PROFESSOR CLOSING FAMLY MEMBER (MOTHER) AT BED SIDE, PT IS CALM AND NO SIGNS OF DISCOMFORT NOTED AT THIS TIME. ALL NEEDS ATTENDED CALL LIGHT WITHIN REACH , BED AT LOWEST POSITION LOCKED. ENDORSED TO ANIMAL SHELTER MANAGER NURSE FOR CABRERA.
[2019-08-14 20:00] VITALS: BP 110/57
--- NOTE | 2019-08-14 21:52 | NUR ---
RT NOTE PT RECEIVED TRACHED ON COOL AEROSOL T-PIECE @ 28%. AMBU BAG/BACK UP TRACH @ BEDSIDE. SX DONE, TRACH SECURED AND PATENT. WATER LEVEL GOOD. WILL MONITOR T/O SHIFT. Addendum: 08/14/19 at 2153 by RICK JOSE RT Amended: Links added.
[2019-08-14] MEDS: INSULIN REGULAR, HUMAN 100 UNIT/ML 3 ML VIAL SQ PRN (23:39)
[2019-08-15] VITALS (7 sets, daily range): BP systolic 105–125; BP diastolic 58–88
[2019-08-15] MEDS: POLYVINYL ALCOHOL 15 ML BOTTLE OP SCH ×6 (01:20→22:07)
[2019-08-15] MEDS: NEPRO 1,000 ML BOTTLE GT PRN (02:33)
[2019-08-15] MEDS: PANTOPRAZOLE 40 MG VIAL IV SCH ×2 (05:41→16:53)
[2019-08-15] MEDS: GLYCOPYRROLATE 1 MG TABLET GT SCH ×3 (05:41→22:06)
[2019-08-15 06:23] LABS: BASOPHILS % (AUTO) 0.2 % (0.0-2.0); EOSINOPHILS % (AUTO) 10.4 % (0.0-6.0); HEMATOCRIT 23 % (39-51); HEMOGLOBIN 7.6 g/dL (13.5-17.5); LYMPHOCYTES # (AUTO) 1.1 /CMM (0.8-4.8); LYMPHOCYTES % (AUTO) 16.2 % (20.0-44.0); MEAN CORPUSCULAR HGB CONC 33 g/dl (31.0-36.0); MEAN CORPUSCULAR VOLUME 100 fL (80-96); MONOCYTES # (AUTO) 0.6 /CMM (0.1-1.30); MONOCYTES % (AUTO) 8.6 % (2.0-12.0); NEUTROPHILS # (AUTO) 4.3 /CMM (1.8-8.9); NEUTROPHILS % (AUTO) 64.6 % (43.0-81.0); PLATELET COUNT (AUTO) 118 /CMM (150-450); WHITE BLOOD COUNT (AUTO) 6.7 K/uL (4.3-11.0)
[2019-08-15 06:40] LABS: CALCIUM, SERUM 9.1 mg/dL (8.5-10.1); CREATININE 5.9 mg/dL (0.6-1.3); MAGNESIUM 2.3 mg/dL (1.8-2.4); PHOSPHORUS 3.9 mg/dL (2.5-4.9); POTASSIUM 3.7 mmol/L (3.5-5.1)
--- NOTE | 2019-08-15 06:45 | NUR ---
RN NOTES PATIENT IN BED, RESTLESS. NO SIGNIFICANT CHANGE OF CONDITION. SITTER AT BEDSIDE. VITAL SIGNS WNL. TURNED AND REPOSITIONED EVERY TWO HOURS. BREATHING EVEN AND UNLABORED. KEPT CLEAN AND DRY.
[2019-08-15] MEDS: INSULIN REGULAR, HUMAN 100 UNIT/ML 3 ML VIAL SQ PRN (06:49)
[2019-08-15] MEDS: BLOOD SUGAR DIAGNOSTIC 1 EACH STRIP IN SCH ×3 (06:50→17:50)
--- NOTE | 2019-08-15 07:10 | NUR ---
RN INITIAL NOTE PATIENT IN BED, AWAKE AND VERY CONFUSED. PATIENT TRYING TO MOVE HIS LEGS AND REMOVE HIS RESTRAINTS. PATIENT HAS BILATERAL SOFT RESTRAINTS AND MITTENS. SITTER ALSO AT BEDSIDE. PATIENT HAS TP IN COOL AEROSOL. NO SIGNS OF ANY DISTRESS AT THIS TIME. ON TELE MONITOR, ST AT 100. ON GTF WITH NEPRO AT 55 ML/HR. HAS A RIGHT UA PICC, TKO. AND RIGHT CW PERMA CATH. PATIENT IS POSITIVE FOR STOOL OB. BED LOCKED AND IN LOWEST POSITION. CALL LIGHT WITHIN REACH. WILL CONTINUE TO MONITOR
[2019-08-15] MEDS: SEVELAMER CARBONATE 0.8 GM POWD.PACK GT SCH ×3 (08:18→17:30)
[2019-08-15] MEDS: LEVOTHYROXINE SODIUM 75 MCG TABLET GT SCH (08:18)
[2019-08-15] MEDS: LEVETIRACETAM SOL (5 ML) 100 MG/ML UDC GT SCH ×2 (08:18→22:06)
[2019-08-15] MEDS: Z GUARD REMEDY 2 OZ OINT TP SCH (08:27)
[2019-08-15] MEDS: MINERAL OIL/PETROLATUM,WHITE 120 GM JAR TP PRN (08:27)
[2019-08-15] MEDS: CADEXOMER IODINE 40 GM TUBE TP SCH (08:28)
[2019-08-15] MEDS: THERAHONEY GEL 1.5 OZ TUBE TP SCH (08:29)
--- NOTE | 2019-08-15 09:45 | NUR ---
RN NOTE PATIENT IS HAVING DIALYSIS AT THIS TIME. BRITTANI, PATIENT'S SISTER CALLED FOR AN UPDATE.
[2019-08-15] MEDS: LORAZEPAM INJ 2 MG/ML VIAL IVP PRN (14:34)
--- NOTE | 2019-08-15 18:14 | NUR ---
RN NOTE VERBAL TELEPHONE ORDER FROM ALEXSANDER JETT NP TO DISCHARGE PATIENT BACK TO [facility]. CAGE MANAGER TIME PER SATURATOR OPERATOR IS 9PM
--- NOTE | 2019-08-15 18:17 | NUR ---
RN NOTE PATIENT WILL BE GOING BACK TO [facility]. FAMILY AT BEDSIDE AWARE
--- NOTE | 2019-08-15 18:51 | NUR ---
RN CLOSING NOTE PATIENT IN BED, NON VERBAL ON TPIECE SATING WELL AT 100%. ON TELE MONITOR, . HAS GTF NEPRO AT 55 ML/HR. HAS BILATERAL MITTENS AND WRIST RESTRAINTS. HAS A RIGHT UA PICC, TKO. HAS RIGHT CW PERMA CATH. HD TODAY. PATIENT WILL BE DISCHARGE TONIGHT AT 9PM. PER ALEXSANDER, SHE WILL HAVE ACCESS TO A COMPUTER BEFORE 9PM AND WILL ENTER ORDERS. SITTER ALSO AT BEDSIDE. WILL ENDORSE TO NOC SHIFT FOR CABRERA
--- NOTE | 2019-08-15 20:00 | NUR ---
RN CLOSING NOTE PATIENT IN BED, NON VERBAL ON T-PIECE WITH 28% FIO2 SATING WELL AT 100%. ON TELE MONITOR, ST 102. HAS GTF NEPRO AT 55 ML/HR. HAS BILATERAL MITTENS AND WRIST RESTRAINTS. RIGHT UA PICC IN PLACE PATIENT AND INTACT. HAS RIGHT CW PERMA CATH. HD TODAY DONE. PATIENT WILL BE DISCHARGE TONIGHT AT 2100 PER ALEXSANDER. SITTER AND THE FAMILY MEMBERS AT THE BEDSIDE. ALL SAFETY MEASURES IN PLACE, BED IN LOW, LOCKED POSITION, CALL LIGHT IN PLACE. WILL CALL THE FACILITY FOR REPORT . WILL CONTINUE TO MONITOR PATIENT CLOSELY.
[2019-08-15] MEDS ORDERED: PANT40TA2 GT (20:16)
--- NOTE | 2019-08-15 20:49 | NUR ---
RT NOTE PT REC'D TRACHED ON COOL AEROSOL T-PIECE @ 28%. AMBU BAG/BACK UP TRACH @ BEDSIDE. SX DONE, TRACH SECURED AND PATENT. WATER LEVEL GOOD. WILL CONTINUE TO MONITOR. Addendum: 08/15/19 at 2049 by AG WOO RT Amended: Links added.
--- NOTE | 2019-08-15 21:15 | NUR ---
CALLED [facility] FOR THE REPORT. GAVE REPORT TO SINTIA KELLER. KENNY IS IN THE UNIT TO TRANSFER THE PATIENT AND AWAITING FOR CALL BACK FROM MD WHITE TO CLARIFY PICC LINE REMOVAL. WILL CONTINUE TO MONITOR PATIENT.
--- NOTE | 2019-08-15 22:18 | NUR ---
GOT A CALL FROM MD WHITE TO REMOVE PICC LINE BEFORE D/C. NEW ORDER OF D/C PICC LINE IS IN PLACE.
--- NOTE | 2019-08-15 22:45 | NUR ---
RN NOTES RIGHT UPPER PICC LINE HAS BEEN REMOVED BY MD WHITE'S ORDER. TELE BOX REMOVED. D/C PAPERS GIVEN TO FAMILY MEMBERS(MOTHER AND SISTER). DISCHARGE TEACHING PROVIDED . B/P 134/74 HR-82, O2-98%, RR-22, TEMP-98.2. PATIENT HAS RESTRAINT IN PLACE. LEAVING WITH [facility] AND FAMILY MEMBERS AT 2245 TO THE [facility] , PHONE #[phone]. REPORT GIVEN TO ARIANNA PATRICIO.
== END 2019-08-15 22:45 | DRG 245 ==
LOC: ER 15:27 → ICU 17:32 → TELE-TD 08-11 12:04 → TELE1 08-13 10:07
PROVIDERS: ATTEND Registered Nurse
PROC: 5A1D70Z Performance of Urinary Filtration, Intermittent, Less than 6 Hours Per Day (ICD-10-PCS; 2019-08-04)
PROC: B548ZZA Ultrasonography of Superior Vena Cava, Guidance (ICD-10-PCS; 2019-08-04)
PROC: 02HV33Z Insertion of Infusion Device into Superior Vena Cava, Percutaneous Approach (ICD-10-PCS; 2019-08-04)
PROC: 30233N1 Transfusion of Nonautologous Red Blood Cells into Peripheral Vein, Percutaneous Approach (ICD-10-PCS; 2019-08-08)
PROC: 0DBH8ZZ Excision of Cecum, Via Natural or Artificial Opening Endoscopic (ICD-10-PCS; principal; 2019-08-10)
PROC: 0DB78ZX Excision of Stomach, Pylorus, Via Natural or Artificial Opening Endoscopic, Diagnostic (ICD-10-PCS; principal; 2019-08-10)
PROC: 0DBK8ZX Excision of Ascending Colon, Via Natural or Artificial Opening Endoscopic, Diagnostic (ICD-10-PCS; principal; 2019-08-10)
DX: K51.90 Ulcerative colitis, unspecified, without complications (principal); R57.1 Hypovolemic shock; E43 Unspecified severe protein-calorie malnutrition; G93.1 Anoxic brain damage, not elsewhere classified; J96.10 Chronic respiratory failure, unspecified whether with hypoxia or hypercapnia; R53.2 Functional quadriplegia; Z93.0 Tracheostomy status; D72.1 Eosinophilia; E11.22 Type 2 diabetes mellitus with diabetic chronic kidney disease; E11.51 Type 2 diabetes mellitus with diabetic peripheral angiopathy without gangrene; K29.71 Gastritis, unspecified, with bleeding; I12.0 Hypertensive chronic kidney disease with stage 5 chronic kidney disease or end stage renal disease; N18.6 End stage renal disease; D62 Acute posthemorrhagic anemia; E03.9 Hypothyroidism, unspecified; D63.8 Anemia in other chronic diseases classified elsewhere; Z93.1 Gastrostomy status; R13.10 Dysphagia, unspecified; E11.649 Type 2 diabetes mellitus with hypoglycemia without coma; E11.621 Type 2 diabetes mellitus with foot ulcer; E87.2 Acidosis; G40.909 Epilepsy, unspecified, not intractable, without status epilepticus; Z99.2 Dependence on renal dialysis; Z79.4 Long term (current) use of insulin; L97.529 Non-pressure chronic ulcer of other part of left foot with unspecified severity; Z88.1 Allergy status to other antibiotic agents; Z79.01 Long term (current) use of anticoagulants; Z79.899 Other long term (current) drug therapy; K44.9 Diaphragmatic hernia without obstruction or gangrene; K29.80 Duodenitis without bleeding; Z86.74 Personal history of sudden cardiac arrest; E83.52 Hypercalcemia; D53.9 Nutritional anemia, unspecified; M62.40 Contracture of muscle, unspecified site; J98.11 Atelectasis; M85.9 Disorder of bone density and structure, unspecified
CPT/HCPCS: 31720; 36415; 36569; 36600; 71045-TC; 74170-TC; 80048-TC; 80053-TC; 80076-TC; 80202-TC; 81000-TC; 82272-TC; 82728-TC; 82962-TC; 83520; 83540-TC; 83605-TC; 83735-TC; 84100-TC; 84484-TC; 85025-TC; 85027-TC; 85378-TC; 85385-TC; 85610-TC; 85730-TC; 86256; 86706; 86850-TC; 86921-TC; 87040-TC; 87045-TC; 87070-TC; 87081-TC; 87086-TC; 87186-TC; 87340; 88305-TC; 88313-TC; 88342; 89055; 90935-TC; 94640-TC; 94664-TC; 94760-TC; A4216; A4217; A4623; A4624; A6253; A7526; A9560; C1750; C1751; C9113; G0378; J1644; J1815; J1953; J2060; J2185; J2270; J2704; J2930; J3370; J3490; J7030; J7042; J7050; J7060; J7070; P9016-BL; Q0163; Q9967

== ENCOUNTER 2019-10-05 19:35 | Inpatient (IN) | payer MEDICAID ==
[~2019-10-05] VITALS: Ht 172.7 cm; Wt 83.5 kg
[~2019-10-05 19:35] MED LIST: ACET650S26 GT; BISA10SU11 RC; CLOB15CR5 TP; COLL30OI TP; DOCU50LI GT; FOLI0.8T23 GT; GLUC1KIT IJ; GLYC1TAB12 GT; INSU100I34 SQ; IPRA3AMP23 IH; LEVE100S GT; LEVO75TA7 GT; METO5SOL GT; NUT.237L67 GT; PANT40TA2 GT; POLY15DR40 EACHEYE; POLY17PO4 GT; SEVE800T8 GT; VITA56.7 TP
--- NOTE | 2019-10-05 19:50 | NUR ---
SERENE FROM RENAL HD ACCROSS THE HOSPITAL. TO ER BED 8. AAOX0. NON VERBAL. NO RESP DISTRESS NOTED, ON TRACH MASK VIA O2 @ 5LPM. BEDBOUND. C/O LOW BP AFTER HD. PER SISTER , PTS BP WAS IN THE 80. HD SESSION WAS COMPLETED AND TOOK UP 1L FLUID. THEN PT WAS GIVEN 800ML PER SISTER. WAS AT BEDSIDE FOR EVAL.
--- NOTE | 2019-10-05 21:16 | NUR ---
iv line obtained on lfa20g. blood drawn
[2019-10-05] MEDS ORDERED: VANCOMYCIN 1 GM in IV D5W 250 ML IV ONE (21:30)
[2019-10-05] MEDS ORDERED: IV NS 0.9% 500 ML BAG IV ONE (21:30)
[2019-10-05] MEDS ORDERED: LEVOFLOXACIN 500 MG /D5W 100ML 500 MG/100 ML PIGGYBACK IV ONE (21:30)
[2019-10-05 21:32] LABS: BASOPHILS # (AUTO) 0.1 /CMM (0.0-0.2); EOSINOPHILS % (AUTO) 3.2 % (0.0-6.0); HEMATOCRIT 43 % (39-51); HEMOGLOBIN 13.3 g/dL (13.5-17.5); LYMPHOCYTES % (AUTO) 32.6 % (20.0-44.0); MEAN CORPUSCULAR HGB CONC 31 g/dl (31.0-36.0); MEAN CORPUSCULAR VOLUME 96 fL (80-96); MONOCYTES # (AUTO) 0.7 /CMM (0.1-1.30); MONOCYTES % (AUTO) 7.9 % (2.0-12.0); NEUTROPHILS % (AUTO) 55.3 % (43.0-81.0); PLATELET COUNT (AUTO) 128 /CMM (150-450); RED BLOOD CELL COUNT(AUTO) 4.46 MIL/uL (4.5-6.0); WHITE BLOOD COUNT (AUTO) 9.1 K/uL (4.3-11.0)
[2019-10-05 21:48] LABS: CARBON DIOXIDE 23 mmol/L (21-32); CHLORIDE 101 mmol/L (98-107); CREATININE 3.3 mg/dL (0.6-1.3); GLUCOSE 77 mg/dL (74-106); POTASSIUM 3.9 mmol/L (3.5-5.1); SODIUM SERUM 135 mmol/L (136-145); UREA NITROGEN, BLOOD 21 mg/dL (7-18)
[2019-10-05 21:54] LABS: ALANINE AMINOTRANSFERASE 29 U/L (12-78); ALBUMIN 3.8 g/dL (3.4-5.0); ALKALINE PHOSPHATASE 93 U/L (46-116); ASPARTATE AMINOTRANSFERASE 18 U/L (15-37); BILIRUBIN,DIRECT 0.1 mg/dL (0.0-0.2); BILIRUBIN,TOTAL 0.4 mg/dL (0.2-1.0); LIPASE 118 U/L (73-393); TOTAL PROTEIN, SERUM 8.2 g/dL (6.4-8.2)
[2019-10-05] MEDS ORDERED: VANCOMYCIN 1 GM VIAL ONE (21:59)
[2019-10-05] MEDS ORDERED: LEVOFLOXACIN 500 MG /D5W 100ML 100 ML IV ONE (21:59)
--- NOTE | 2019-10-05 22:59 | NUR ---
UNABLE TO COLLECT URINE DESPITE USING I&O CATH. OUT WAS ONLY ABOUT 3ML. MD EASTMAN.
--- NOTE | 2019-10-05 23:26 | NUR ---
report given to daysi zelaya for dilma
[2019-10-05 23:39] VITALS: BP 100/58
--- NOTE | 2019-10-05 23:44 | NUR ---
pt transported to unit on [facility] w/ emt, rt and rn at bedside w/ acls protocol. nad noted.
[2019-10-05 23:45] VITALS: BP 100/50
--- NOTE | 2019-10-05 23:45 | NUR ---
2345 ADMITTED FOR ER 28 YEAR OLD MALE VIA GURNEY WITH DX HYPOTENSION. AWAKE AND NON VERBAL. TRANSFERRED TO OPHELIA BED, CONNECTED TO ASSISTANT ART DIRECTOR. TRACHEOSTOMY WITH SHILEY 6 INTACT AND SECURED AT MIDLINE. RT AT BEDSIDE AND PLACED PATIENT ON O2 AT 5LPM VIA TRACH COLLAR, O2 SAT AT 100%. ADMITTED PATIENT ON BILATERAL SOFT WRIST RESTRAINTS AND BILATERAL MITTENS FROM FACILITY. PER SISTER BRITTANI AT BEDSIDE PATIENT CAN QUICKLY PULL OUT TRACH TUBE. ADMISSION CARE RENDERED. B/P 100/58. AFEBRILE. LEFT PIV GAUGE 20 NOTED INTACT WITH NO SIGN OF INFILTRATION NOTED. ATB LEVAQUIN INFUSING FROM ER. KEPT PATIENT CLEAN AND COMFORTABLE.
[2019-10-06] VITALS: BP 100/58
[2019-10-06] MEDS ORDERED: Z GUARD REMEDY 2 OZ OINT TP PRN (00:30)
[2019-10-06] MEDS ORDERED: MAGNESIUM HYDROXIDE 30 ML UDC PO PRN (00:30)
[2019-10-06] MEDS ORDERED: ZOLPIDEM TARTRATE 5 MG TABLET PO PRN (00:30)
[2019-10-06] MEDS ORDERED: ACETAMINOPHEN 325 MG TABLET PO PRN (00:30)
[2019-10-06] MEDS ORDERED: ONDANSETRON HCL/PF 4 MG/2 ML VIAL IVP PRN (00:30)
[2019-10-06] MEDS ORDERED: MAG HYDROX/AL HYDROX/SIMETH 30 ML UDC PO PRN (00:30)
[2019-10-06] MEDS ORDERED: HYDROCODONE/APAP 5/325MG 1 EACH TABLET PO PRN (00:30)
--- NOTE | 2019-10-06 00:30 | NUR ---
[address] CUMMINS AND INFORMED HIM OF PATIENT'S ADMISSION, ORDERS OBTAINED FOR BILATERAL WRIST RESTRANTS, CONTINUOUS PULSE OXIMETRY AND TUBE FEEDING NEPRO AT 30ML/HR. ORDERS NOTED AND CARRIED OUT. SISTER MADE AWARE OF PLAN OF CARE.
--- NOTE | 2019-10-06 00:45 | NUR ---
0045 PATIENT IS AGITATED AT THIS TIME, RIPPING HIS DIAPER AND TRYING TO PULL ON LINES, BILATERAL RESTRAINTS APPLIED ORDERED FOR SAFETY. SISTER BRITTANI STILL AT BEDSIDE AND AWARE TRYING TO CALM PATIENT DOWN. NO SIGNS OF DISTRESS NOTED. PATIENT IS BEING CLOSELY MONITORED BY CLEANING TEAM MEMBER NURSE AT BEDSIDE.
[2019-10-06] MEDS: IV NS 0.9% 1,000 ML IV PRN ×2 (00:53→14:56)
[2019-10-06] MEDS ORDERED: Medication Not On Formulary EA (Ipratropium/Albuterol Sulfate (Duoneb 2.5-0.5 Mg/3 Ml So IH PRN (01:00)
[2019-10-06] MEDS ORDERED: NEPRO 1,000 ML BOTTLE GT PRN (01:00)
[2019-10-06] MEDS ORDERED: NEPRO VAN 237 ML CAN GT SCH (01:00)
[2019-10-06] MEDS ORDERED: ACETAMINOPHEN 650 MG/20.3 ML UDC GT PRN (01:00)
[2019-10-06] MEDS ORDERED: BISACODYL SUPP (10 MG) 10 MG/SUPP.RECT SUPP.RECT RC PRN (01:00)
[2019-10-06] MEDS ORDERED: IPRATROPIUM NEB FS 0.5 MG/2.5 ML AMPUL.NEB NEB PRN (03:00)
--- NOTE | 2019-10-06 03:20 | NUR ---
FUEL ASSEMBLER NOTE CALLED MD TO NOTIFY THE PATIENTS BP IS 83/35, REASSESSED 80/40. TELEPHONE ORDERED 1L NS BOLUS WIDE OPEN. READ BACK, NOTED AND CARRIED OUT. WILL CONTINUE TO MONITOR. Addendum: 10/06/19 at 0349 by ALLIE SEAMAN RN NOTIFIED MD THAT THIS IS A DIALYSIS PATIENT. ORDERED 500ML BOLUS OF NS INSTEAD OF 1L NS BOLUS. 1L BOLUS OF NS IS ALREADY HUNG. I WILL STOP AT 500ML. WILL CONTINUE TO MONITOR.
[2019-10-06] MEDS ORDERED: IV NS 0.9% 1,000 ML IV PRN (03:30)
--- NOTE | 2019-10-06 03:50 | NUR ---
0350 B/P RECHECKED 93/42, NS BOLUS ON GOING. RN AT BEDSIDE MONITORING PATIENT CLOSELY.
[2019-10-06 04:00] VITALS: BP 105/53
--- NOTE | 2019-10-06 04:45 | NUR ---
RECHECKED BP 105/53.
[2019-10-06] MEDS ORDERED: SEVELAMER CARBONATE 800 MG TABLET PO SCH (05:00)
[2019-10-06] MEDS ORDERED: PIPERACILLIN /TAZOBACTAM 2.25 G in IV D5W 50 ML IV SCH ×2 (05:00→06:00)
[2019-10-06] MEDS ORDERED: PIPERACILLIN /TAZOBACTAM 2.25 G VIAL IV ONE (05:43)
[2019-10-06] MEDS ORDERED: METOCLOPRAMIDE HCL 10 MG TABLET ONE (05:45)
[2019-10-06] MEDS: GLYCOPYRROLATE 1 MG TABLET GT SCH ×3 (05:50→20:58)
[2019-10-06] MEDS: SEVELAMER CARBONATE 0.8 GM POWD.PACK GT SCH ×3 (05:50→20:58)
[2019-10-06] MEDS ORDERED: METOCLOPRAMIDE HCL 5 MG/5 ML UDC GT SCH (06:00)
[2019-10-06] MEDS ORDERED: MAGNESIUM HYDROXIDE 30 ML UDC GT PRN (06:39)
[2019-10-06] MEDS ORDERED: HYDROCODONE/APAP 5/325MG 1 EACH TABLET GT PRN (06:39)
[2019-10-06] MEDS ORDERED: MAG HYDROX/AL HYDROX/SIMETH 30 ML UDC GT PRN (06:39)
[2019-10-06] MEDS ORDERED: ZOLPIDEM TARTRATE 5 MG TABLET GT PRN (06:39)
--- NOTE | 2019-10-06 06:43 | NUR ---
GOVERNMENT AFFAIRS RESEARCHER CLOSING NOTE PATIENT IN BED. A/OX0, NONVERBAL. ON OXYGEN TRACH COLLAR AT 5L/MIN WITH COOL AEROSOL. RESPIRATIONS ARE EVEN AND UNLABORED. NO S/S SOB NOTED. NO S/S PAIN AT THIS TIME. EXTERNAL TELE MONITOR READS SR WITH ELEVATED T WAVE 70 -90S. I N NO APPARENT DISTRESS. IV ACCESS IN RFA#20 RUNNING NS @75ML/HR. GTUBE IS MAINTAINED NO FEEDING AT THIS TIME D/T PT LOW PREET AND PT KEEPS SLIDING DOWN IN BED. BILATERAL SOFT WRIST RESTRAINTS MAINTAINED, 2 FINGERS SPACE, NO REDNESS, PATIENT WAS A LITTLE AGITATED THROUGHOUT NIGHT TRYING TO REMOVE EVERYTHING. BED IS LOW AND LOCKED, HOB ELVATED IN HIGH FOWLERS, SIDE RAILS UP X2, BED ALARM ON. WILL ENDORSE TO NEXT SHIFT.
[2019-10-06] MEDS ORDERED: GLUCAGON,HUMAN RECOMBINANT 1 MG/VIAL VIAL IV PRN (07:00)
--- NOTE | 2019-10-06 07:15 | NUR ---
RN OPENING NOTES PT IS IN BED ASLEEP PT IS NOT ON G-TUBE FEEDING CURRENTLY. NS @ 75 MLS/HR RUNNING IN RIGHT FOREARM 20 GAUGE IV. PT ON BILATERAL SOFT WRIST RESTRAINTS. HANDS ARE WARM AND PULSE PRESENT. PT HAS SITTER AT BEDSIDE. PT ON COOL AEROSOL AND 02 SATURATION AT 100%. BED IS LOCKED AND IN LOWEST POSITION WITH PADDING ON SIDE RAILS. WILL CONTINUE TO MONITOR.
[2019-10-06] MEDS ORDERED: PANTOPRAZOLE 40 MG TABLET.DR PO SCH (07:30)
[2019-10-06 08:00] VITALS: BP 100/54
[2019-10-06] MEDS: DOCUSATE SODIUM LIQ 100 MG/10 ML UDC GT SCH (08:26)
[2019-10-06] MEDS: VIT B CMPLX 3/FA/VIT C/BIOTIN 1 TAB TABLET GT SCH (08:26)
[2019-10-06] MEDS: POLYVINYL ALCOHOL 15 ML BOTTLE EACHEYE SCH ×5 (08:26→23:56)
[2019-10-06] MEDS: LEVOTHYROXINE SODIUM 75 MCG TABLET GT SCH (08:26)
[2019-10-06] MEDS: PANTOPRAZOLE 40 MG/PACK PACK GT SCH (08:26)
[2019-10-06] MEDS: POLYETHYLENE GLYCOL 3350 17 GM POWD.PACK GT SCH ×2 (08:27→16:22)
[2019-10-06] MEDS ORDERED: COLLAGENASE 30 GM TUBE TP SCH (09:00)
[2019-10-06] MEDS ORDERED: LEVETIRACETAM SOL (5 ML) 100 MG/ML UDC GT SCH (09:00)
[2019-10-06 12:00] VITALS: BP 100/55
[2019-10-06] MEDS: METOCLOPRAMIDE HCL 10 MG/10 ML UDC GT SCH ×3 (12:15→23:53)
[2019-10-06] MEDS: PIPERACILLIN /TAZOBACTAM 2.25 G in IV D5W 50 ML IV SCH ×2 (12:15→20:57)
[2019-10-06 13:16] LABS: BASOPHILS % (AUTO) 0.3 % (0.0-2.0); CALCIUM, SERUM 9.2 mg/dL (8.5-10.1); CREATININE 4.3 mg/dL (0.6-1.3); EOSINOPHILS % (AUTO) 3.3 % (0.0-6.0); HEMATOCRIT 38 % (39-51); HEMOGLOBIN 11.6 g/dL (13.5-17.5); LYMPHOCYTES # (AUTO) 1.7 /CMM (0.8-4.8); LYMPHOCYTES % (AUTO) 31.8 % (20.0-44.0); MEAN CORPUSCULAR HGB CONC 31 g/dl (31.0-36.0); MEAN CORPUSCULAR VOLUME 98 fL (80-96); MONOCYTES # (AUTO) 0.5 /CMM (0.1-1.30); MONOCYTES % (AUTO) 8.8 % (2.0-12.0); NEUTROPHILS % (AUTO) 55.8 % (43.0-81.0); PLATELET COUNT (AUTO) 108 /CMM (150-450); POTASSIUM 4.8 mmol/L (3.5-5.1); RED BLOOD CELL COUNT(AUTO) 3.88 MIL/uL (4.5-6.0); WHITE BLOOD COUNT (AUTO) 5.3 K/uL (4.3-11.0)
--- NOTE | 2019-10-06 14:49 | NUR ---
SISTER AT BEDSIDE STATES THAT PT BP BASELINE USUALLY ABOUT 100/50 RANGE.
[2019-10-06] MEDS ORDERED: LEVETIRACETAM SOL (5 ML) 100 MG/ML UDC PO ONE (15:30)
[2019-10-06 16:00] VITALS: BP 93/51
--- NOTE | 2019-10-06 19:27 | NUR ---
RN CLOSING NOTES REPORT GIVEN TO BATTALION CHIEF RN FOR CABRERA. NO SIGNIFICANT CHANGES DURING SHIFT.
--- NOTE | 2019-10-06 19:30 | NUR ---
CO FOUNDER NOTES RECEIVED ON BED,A/O X1,EYES OPEN,NO VERBAL,FAMILY MEMBER AT BEDSIDE,SITTER AT BEDSIDE FOR SAFETY.BILATERAL MITTENS IN USED TO KEEP AWAY PULLING ON IV TUBINGS.WITH SALINE LOCK RIGHT LOWER ARM,NS AT 75MKL./HR RATE IN PROGRESS.WITH GT FEEDING OF NEPRO AT 40ML/HR RATE,TOLERATED WELL.NOTED 5ML RESIDUAL VOLUME.WILL CONTINUE TO MONITOR STATUS.
[2019-10-06 20:00] VITALS: BP 130/63
[2019-10-06] MEDS: LEVETIRACETAM SOL (5 ML) 100 MG/ML UDC GT SCH (20:58)
--- NOTE | 2019-10-06 23:53 | NUR ---
DUCK OPERATOR NOTES AWAE,RESTLESS,MEDICATED WITH AMBIEN 5MG GIVEN PER GT,ALONG WITH REGLAN 5MG SCHEDULED.SITTER AT BEDSIDE.
[2019-10-07] VITALS (7 sets, daily range): BP systolic 102–150; BP diastolic 45–84
[2019-10-07] MEDS: IV NS 0.9% 1,000 ML IV PRN ×2 (03:59→17:16)
[2019-10-07] MEDS: POLYVINYL ALCOHOL 15 ML BOTTLE EACHEYE SCH ×5 (04:05→21:15)
[2019-10-07] MEDS: SEVELAMER CARBONATE 0.8 GM POWD.PACK GT SCH ×3 (04:20→21:07)
[2019-10-07] MEDS: GLYCOPYRROLATE 1 MG TABLET GT SCH ×3 (04:20→21:06)
[2019-10-07] MEDS: PIPERACILLIN /TAZOBACTAM 2.25 G in IV D5W 50 ML IV SCH ×3 (04:20→21:06)
[2019-10-07] MEDS: METOCLOPRAMIDE HCL 10 MG/10 ML UDC GT SCH ×4 (05:27→23:41)
--- NOTE | 2019-10-07 06:39 | NUR ---
PLANTING MATERIAL REMOVER NOTES SLEPT WITH INTERVALS,KEPT WARM AND COMFORTABLE.BREATHING NON LABORED.REMAINS ON T-PIECE TO COOL AEROSOL TOLERATED WELL.GT FEEDING TOLERATED WELL.NO N/V/D NOTED.SITTER AT BEDSIDE FOR SAFETY.IN NO ACUTE DISTRESS.WILL ENDORSE TO DAY NURSE FOR CABRERA.
[2019-10-07 07:02] LABS: BASOPHILS % (AUTO) 0.6 % (0.0-2.0); EOSINOPHILS % (AUTO) 5.1 % (0.0-6.0); HEMATOCRIT 37 % (39-51); HEMOGLOBIN 11.6 g/dL (13.5-17.5); LYMPHOCYTES # (AUTO) 2.2 /CMM (0.8-4.8); LYMPHOCYTES % (AUTO) 36.4 % (20.0-44.0); MEAN CORPUSCULAR HGB CONC 31 g/dl (31.0-36.0); MEAN CORPUSCULAR VOLUME 96 fL (80-96); MONOCYTES # (AUTO) 0.5 /CMM (0.1-1.30); MONOCYTES % (AUTO) 8.6 % (2.0-12.0); NEUTROPHILS # (AUTO) 2.9 /CMM (1.8-8.9); NEUTROPHILS % (AUTO) 49.3 % (43.0-81.0); PLATELET COUNT (AUTO) 100 /CMM (150-450); RED BLOOD CELL COUNT(AUTO) 3.86 MIL/uL (4.5-6.0); WHITE BLOOD COUNT (AUTO) 5.9 K/uL (4.3-11.0)
--- NOTE | 2019-10-07 07:20 | NUR ---
TELE/RN OPENING NOTES RECEIVED PATIENT IN BED SLEEPING COMFORTABLY. EASILY AROUSABLE. PATIENT IS ALERT AND ORIENTED X1. NO PAIN OR ACUTE DISTRESS AT THIS TIME. RESPIRATION EVEN AND UNLABORED. SKIN IS DRY WARM TO TOUCH. SITTER AT BEDSIDE FOR SAFETY AT ALL TIMES. BILATERAL MITTENS IN USED WELL TO KEEP AWAY PULLING ON IV TUBINGS WITH SALINE LOCK RIGHT LOWER ARM,NS AT 75MKL./HR RATE. PATIENT NOTED WITH GT FEEDING OF NEPRO AT 40ML/HR RATE. PATIENT ABLE TO TOLERATE FEEDING AND MEDS WELL. ALL NEEDS ANTICIPATED. CALL LIGHT WITHIN REACHED. SAFETY MAINTAINED. BED LOCKED AND IN LOWEST POSITION. HOB ELEVATED AT ALL TIME. WILL CONTINUE TO MONITOR CLOSELY.
[2019-10-07 07:31] LABS: CALCIUM, SERUM 9.4 mg/dL (8.5-10.1); CREATININE 5.4 mg/dL (0.6-1.3); MAGNESIUM 2.5 mg/dL (1.8-2.4); PHOSPHORUS 4.3 mg/dL (2.5-4.9); POTASSIUM 4.5 mmol/L (3.5-5.1)
[2019-10-07] MEDS: LEVOTHYROXINE SODIUM 75 MCG TABLET GT SCH (07:41)
[2019-10-07] MEDS: LEVETIRACETAM SOL (5 ML) 100 MG/ML UDC GT SCH ×2 (08:32→21:07)
[2019-10-07] MEDS: DOCUSATE SODIUM LIQ 100 MG/10 ML UDC GT SCH (08:32)
[2019-10-07] MEDS: POLYETHYLENE GLYCOL 3350 17 GM POWD.PACK GT SCH ×2 (08:32→17:07)
[2019-10-07] MEDS: VIT B CMPLX 3/FA/VIT C/BIOTIN 1 TAB TABLET GT SCH (08:32)
[2019-10-07] MEDS: PANTOPRAZOLE 40 MG/PACK PACK GT SCH (08:32)
--- NOTE | 2019-10-07 10:05 | NUR ---
WOUND CARE CONSULT: PT PRESENTS WITH SCARRING TO LEFT ARM AND SACRAL AREA, OPEN WOUND TO LEFT 2ND TOE, PRESENT ON ADMISSION. RECOMMEND DPM CONSULT. DR LONG NOTIFIED OF CONSULT REQUEST. RECOMMENDATIONS MADE FOR SKIN PROTECTION. DISCUSSED WITH NURSING STAFF. DEFER TO DPM FOR LOWER EXTREMITY WOUND. WILL SEE PRN. LEONARD IN AGREEMENT WITH PLAN OF CARE. Addendum: 10/07/19 at 1007 by JC MOTTA WNDNU Amended: Links added.
[2019-10-07] MEDS: HYDROGEL DRESSING 90 GM TUBE TP SCH (15:35)
--- NOTE | 2019-10-07 19:26 | NUR ---
TELE/RN CLOSING NOTES PATIENT CONTINUES TO REMAIN IN STABLE CONDITION THROUGHOUT THE SHIFT. PROVIDED COMFORT AND SAFETY. SITTER AT BEDSIDE FOR SAFETY AT ALL TIMES. BILATERAL MITTENS IN USED WELL TO KEEP AWAY PULLING ON IV TUBINGS WITH SALINE LOCK RIGHT LOWER ARM, NS AT 75ML./HR RATE. PATIENT NOTED WITH GT FEEDING OF NEPRO AT 40ML/HR RATE. PATIENT ABLE TO TOLERATE FEEDING AND MEDS WELL. ALL NEEDS ANTICIPATED. CALL LIGHT WITHIN REACHED. SAFETY MAINTAINED. BED LOCKED AND IN LOWEST POSITION. HOB ELEVATED AT ALL TIME. WILL CONTINUE TO MONITOR CLOSELY. ENDORSED TO PM NURSE FOR CABRERA.
--- NOTE | 2019-10-07 20:00 | NUR ---
RN NOTES PM SHIFT PATIENT OBTUNDED, ON COOL AEROSOL, SPO2 99%, WITH EPISODE OF RESTLESSNESS, PULLING OUT TRACH, TELE MONITOR AND IV LINE, PEG TUBE FEEDING, NEPRO AT 30 ML/HR, NO RESIDUAL, NO ABDOMINAL DISTENTION, NS AT 75ML/HR, S/P HD WITH 1L OUTPUT, ANURIC, BLE CONTRACTED IN A FROG LIKE POSITION, LEFT FOOT 2ND TOE OPEN WOUND, SISTER REQUESTING WOUND CARE, FOR LEFT FOOT XRAY AND CT OF HEAD TONIGHT. KEPT SAFE, WILL CONTINUE TO MONITOR
--- NOTE | 2019-10-07 21:40 | NUR ---
RT NOTE PT RECEIVED TRACHED ON COOL AEROSOL @ 28%. AMBU BAG/BACK UP TRACH @ BEDSIDE. SX DONE, TRACH SECURED AND PATENT. WATER LEVEL GOOD. NO SOB NOTED AT THIS TIME. WILL MONITOR T/O SHIFT. Addendum: 10/07/19 at 2141 by RICK JOSE RT Amended: Links added.
[2019-10-08] VITALS (7 sets, daily range): BP systolic 94–110; BP diastolic 42–72
[2019-10-08] MEDS: POLYVINYL ALCOHOL 15 ML BOTTLE EACHEYE SCH ×5 (00:15→17:10)
[2019-10-08] MEDS: PIPERACILLIN /TAZOBACTAM 2.25 G in IV D5W 50 ML IV SCH ×2 (04:06→13:01)
[2019-10-08] MEDS: SEVELAMER CARBONATE 0.8 GM POWD.PACK GT SCH ×2 (04:11→12:35)
[2019-10-08] MEDS: GLYCOPYRROLATE 1 MG TABLET GT SCH ×2 (04:11→12:36)
[2019-10-08] MEDS: METOCLOPRAMIDE HCL 10 MG/10 ML UDC GT SCH ×3 (05:04→17:10)
[2019-10-08] MEDS: LEVOTHYROXINE SODIUM 75 MCG TABLET GT SCH (06:38)
--- NOTE | 2019-10-08 06:56 | NUR ---
RN NOTES PM SHIFT PATIENT OBTUNDED, ON COOL AEROSOL, SPO2 99%, PEG TUBE FEEDING TOLERATED WELL, NO ABDOMINAL DISTENTION, NO VOMITING, WITH EPISODE OF RESTLESSNESS, BILATERAL WRISTS RESTRAINTS, ACTIVELY PULLING LINES WHEN RELEASED FROM RESTRAINTS, LEFT 2ND TOE WOUND CARE PERFORMED, CT OF HEAD AND LEFT FOOT XRAY DONE TO CHECK FOR OSTEOMYELITIS, VITAL SIGNS ARE STABLE, GIVEN NORCO 1 TAB X1, FOLLOW UP RESULTS OF CT AND XRAY.
--- NOTE | 2019-10-08 07:15 | NUR ---
ORE ROASTER NOTES PATIENT IS A/O X1. SITTER AT BED SIDE. NO RESIDUAL NOTED FROM [facility]. CALL LIGHT WITHIN REACH BED AT THE LOWEST POSITION LOCKED. WILL CONTINUE TO MONITOR.
[2019-10-08] MEDS: VIT B CMPLX 3/FA/VIT C/BIOTIN 1 TAB TABLET GT SCH (08:23)
[2019-10-08] MEDS: POLYETHYLENE GLYCOL 3350 17 GM POWD.PACK GT SCH ×2 (08:24→17:10)
[2019-10-08] MEDS: LEVETIRACETAM SOL (5 ML) 100 MG/ML UDC GT SCH (08:24)
[2019-10-08] MEDS: DOCUSATE SODIUM LIQ 100 MG/10 ML UDC GT SCH (08:24)
[2019-10-08] MEDS: PANTOPRAZOLE 40 MG/PACK PACK GT SCH (08:24)
[2019-10-08] MEDS: HYDROGEL DRESSING 90 GM TUBE TP SCH (08:27)
--- NOTE | 2019-10-08 08:30 | NUR ---
PHYSICIST SOLID EARTH NOTES LEVOTHYROXINE RECEIVED IN WRONG TIME AND CRUSHED. WASTED IN BIN.
--- NOTE | 2019-10-08 11:15 | NUR ---
ASSISTANT CONSTRUCTION SUPERINTENDENT NOTES MRSA NARES POSITIVE, BACTROBAN ORDERED.
[2019-10-08] MEDS ORDERED: LEVE100S GT (14:00)
[2019-10-08] MEDS: IV NS 0.9% 1,000 ML IV PRN (15:58)
[2019-10-08] MEDS ORDERED: INFLUENZA VACCINE 2019-20 0.5 ML DISP.SYRIN IM ONE (17:00)
--- NOTE | 2019-10-08 18:00 | NUR ---
DOCUMENT CONTROL ASSOCIATE NOTES CALLED [facility] GIVE REPORT TO ILANA KELLER . PATIENT WILL BE TRANSFERRED BY AMBULANCE. PATIENT WILL BE AT ROOM 2.
--- NOTE | 2019-10-08 19:20 | NUR ---
ROBOTICS APPLICATION ENGINEER NOTES PATIENT IN BED A/OX 1-2 , FAMILY AT BED SIDE. ALL NEEDS ATTENDED. PICTURES TAKEN AND PLACED IN CHART. AMBULANCE WILL BE AT [facility] TO TRANSFER [facility]IENT TO [facility]. BED AT THE LOWEST POSITION AND LOCKED, CALL LIGHT WITHIN REACH. ENDORSED TO SOLAR SALES ASSESSOR NURSE FOR CABRERA.
--- NOTE | 2019-10-08 19:45 | NUR ---
RN NOTES RECEIVED PATIENT. EYES OPEN, OBTUNDED. NO SIGNS OF ACUTE DISTRESS, TRACT AT MIDLINE SECURED AND INTACT, PATIENT IS FOR DISCHARGE, AWAITING FOR MANAGER OF ENGINEERING. ALL NEEDS ANTICIPATED, REPOSITIONED FOR COMFORT, FAMILY AT BEDSIDE. WILL MONITOR ACCORDINGLY.
--- NOTE | 2019-10-08 20:55 | NUR ---
RN NOTES PATIENT LEFT THE UNIT IN STABLE CONDITION, REPORT GIVEN TO EMT. ALL NEEDS ATTENDED, FAMILY AT BEDSIDE. CHARGE NURSE AWARE OF DISCHARGE.
[2019-10-08] MEDS ORDERED: MUPIROCIN OINT 2% 22 GM TUBE SCH (21:00)
== END 2019-10-08 20:55 | DRG 207 ==
LOC: ER 19:35 → TELE-TD 23:21 → TELE1 10-06 01:16
PROVIDERS: ADMIT Nurse Practitioner Acute Care; ATTEND Nurse Practitioner Acute Care
PROC: 5A1D70Z Performance of Urinary Filtration, Intermittent, Less than 6 Hours Per Day (ICD-10-PCS; principal; 2019-10-05)
DX: I95.3 Hypotension of hemodialysis (principal); G93.1 Anoxic brain damage, not elsewhere classified; E43 Unspecified severe protein-calorie malnutrition; J96.10 Chronic respiratory failure, unspecified whether with hypoxia or hypercapnia; R53.2 Functional quadriplegia; Z93.0 Tracheostomy status; D68.59 Other primary thrombophilia; E11.22 Type 2 diabetes mellitus with diabetic chronic kidney disease; I12.0 Hypertensive chronic kidney disease with stage 5 chronic kidney disease or end stage renal disease; R13.10 Dysphagia, unspecified; E11.51 Type 2 diabetes mellitus with diabetic peripheral angiopathy without gangrene; E87.1 Hypo-osmolality and hyponatremia; N18.6 End stage renal disease; Z99.2 Dependence on renal dialysis; D63.1 Anemia in chronic kidney disease; G40.909 Epilepsy, unspecified, not intractable, without status epilepticus; Z86.74 Personal history of sudden cardiac arrest; E03.9 Hypothyroidism, unspecified; Z93.1 Gastrostomy status; I25.2 Old myocardial infarction; L97.529 Non-pressure chronic ulcer of other part of left foot with unspecified severity; E11.621 Type 2 diabetes mellitus with foot ulcer; M20.092 Other deformity of left finger(s); M20.091 Other deformity of right finger(s); Z68.28 Body mass index [BMI] 28.0-28.9, adult
CPT/HCPCS: 31720; 36415; 70450-TC; 71045-TC; 73630-TC; 80048-TC; 80061-TC; 80076-TC; 83605-TC; 83690-TC; 83735-TC; 84100-TC; 84484-TC; 85025-TC; 85730-TC; 86706; 87040-TC; 87081-TC; 87340; 90935-TC; 94640-TC; 94664-TC; 94760-TC; 94762-TC; 95819-TC; 99082-TC; A4217; A4349; A6248; A6407; G0378; J1953; J1956; J2543; J3370; J7030; J7040; J7060; J8597; Q2036

== ENCOUNTER 2020-02-22 18:24 | Emergency (ER) | payer MEDICARE, OTHER ==
[~2020-02-22] VITALS: Ht 170.2 cm; Wt 85.7 kg
[2020-02-22] MEDS ORDERED: MIDODRINE HCL (5MG) 5 MG TABLET GT STA (18:58)
[2020-02-22] MEDS ORDERED: IV NS 0.9% 1,000 ML IV PRN (19:00)
--- NOTE | 2020-02-22 19:04 | NUR ---
BRITTANI (SISTER) [phone], SISTER REQUESTS TO CONTACT HER FOR UPDATES
--- NOTE | 2020-02-22 19:44 | NUR ---
BATSHEVA HIGGINS FROM [facility] FOR HYPOTENSION 73/39 S/P COMPLETING DIALYSIS. PT NON VERBAL, EYES OPEN ONLY. RR EVEN & UNLABORED. NO ACUTE DISTRESS NOTED @ THIS TIME. PLACED ON SPRAYING MACHINE OPERATOR. PT SEEN & EVAL'D BY DR. CLAROS. WILL CONT TO MONITOR.
--- NOTE | 2020-02-22 20:35 | NUR ---
PT STABLE, RR EVEN & UNLABORED. DR. CLAROS AWARE OF PT'S BP. WILL CONT TO MONITOR.
--- NOTE | 2020-02-22 21:04 | NUR ---
INFORMED ARIANNA GARCIA FROM [facility] PT WILL BE RETURNING TO FACILITY
--- NOTE | 2020-02-22 21:16 | NUR ---
CALLED [facility] FOR TRANSPORTATION ETA [id number]
--- NOTE | 2020-02-22 23:00 | NUR ---
[facility] DELAY. NEW ETA [id number]
--- NOTE | 2020-02-22 23:30 | NUR ---
PT PULLED TRACH OUT. VSS. NO RESP DISTRESS NOTED. AWAITING ORDERS BY DR. JONES.
--- NOTE | 2020-02-22 23:35 | NUR ---
RT AT BEDSIDE
--- NOTE | 2020-02-22 23:35 | NUR ---
RT NOTE PT FOUND DECANNULATED. NO DISTRESS NOTED. RE-INSERTED SHILEY 8 DCT CUFFLESS TRACH TUBE WITH NO COMPLICATIONS. TRACH SECURED AND PATENT. CLEAR/DIMINISHED B/S NOTED BILATERALLY. TRANSPORT @ BEDSIDE.
--- NOTE | 2020-02-23 | NUR ---
IV removed. Catheter intact and site benign. Pressure and 4x4 applied to site. No bleeding noted.
[2020-02-23] MEDS ORDERED: ONDANSETRON HCL/PF 4 MG/2 ML VIAL ONE (00:03)
--- NOTE | 2020-02-23 00:11 | NUR ---
PT TRANSFERRED TO [facility] STABLE CONDITION. REPORT GIVEN TO CHARGE NURSE ARIANNA GARCIA FROM [facility]. REPORT GIVEN TO [facility] FOR TRANSPORTATION CABRERA
[2020-02-23 00:14] VITALS: BP 106/76
[2020-02-23] MEDS ORDERED: ONDANSETRON HCL/PF 4 MG/2 ML VIAL IM ONE (00:30)
== END 2020-02-23 00:14 | disposition home or self-care (01) ==
LOC: ER 18:27
DX: I95.9 Hypotension, unspecified (principal); G40.909 Epilepsy, unspecified, not intractable, without status epilepticus; E03.9 Hypothyroidism, unspecified; I12.0 Hypertensive chronic kidney disease with stage 5 chronic kidney disease or end stage renal disease; E11.22 Type 2 diabetes mellitus with diabetic chronic kidney disease; N18.6 End stage renal disease; Z99.2 Dependence on renal dialysis; Z98.890 Other specified postprocedural states; Z88.8 Allergy status to other drugs, medicaments and biological substances; Z79.899 Other long term (current) drug therapy; Z79.4 Long term (current) use of insulin
CPT/HCPCS: 93005; 96360; 96372; 99285; J2405; J7030

== ENCOUNTER 2021-05-16 14:45 | Inpatient (IN) | payer MEDICARE, OTHER ==
[~2021-05-16] VITALS: Ht 170.2 cm; Wt 81.6 kg
--- NOTE | 2021-05-16 14:56 | NUR ---
TO ER BED 1, BATSHEVA HIGGINS FROM [facility] DUE TO ELEVATED POTASSIUM,MALFUNCTIONING DIALYSIS, CHANGED TO CHRISSY, ATTACHED TO MONITOR, AWAITING MD [id number]
[2021-05-16 15:46] LABS: BASOPHILS # (AUTO) 0.1 K/uL (0.0-0.2); BASOPHILS % (AUTO) 1.3 % (0.0-2.0); EOSINOPHILS % (AUTO) 1.9 % (0.0-6.0); HEMATOCRIT 35 % (39-51); HEMOGLOBIN 11.2 g/dL (13.5-17.5); LYMPHOCYTES % (AUTO) 27.3 % (20.0-44.0); MEAN CORPUSCULAR HGB CONC 32 g/dl (31.0-36.0); MEAN CORPUSCULAR VOLUME 91 fL (80-96); MONOCYTES # (AUTO) 0.6 K/uL (0.1-1.30); MONOCYTES % (AUTO) 7.8 % (2.0-12.0); NEUTROPHILS # (AUTO) 4.6 K/uL (1.8-8.9); NEUTROPHILS % (AUTO) 61.7 % (43.0-81.0); PLATELET COUNT (AUTO) 100 K/uL (150-450); RED BLOOD CELL COUNT(AUTO) 3.82 MIL/uL (4.5-6.0); WHITE BLOOD COUNT (AUTO) 7.4 K/uL (4.3-11.0)
[2021-05-16] MEDS ORDERED: ONDA4TAB5 GT (15:55)
[2021-05-16] MEDS ORDERED: MIDO10TA GT (15:55)
[2021-05-16] MEDS ORDERED: DIPH25TA62 GT (15:55)
[2021-05-16] MEDS ORDERED: FOLI0.8T41 PO (15:55)
[2021-05-16] MEDS ORDERED: NA P133E RC (15:55)
[2021-05-16] MEDS ORDERED: LANS30TA4 GT (15:55)
[2021-05-16 15:58] LABS: ALANINE AMINOTRANSFERASE 46 U/L (12-78); ALBUMIN 3.9 g/dL (3.4-5.0); ALKALINE PHOSPHATASE 88 U/L (46-116); ASPARTATE AMINOTRANSFERASE 17 U/L (15-37); BILIRUBIN,DIRECT 0.1 mg/dL (0.0-0.2); BILIRUBIN,TOTAL 0.3 mg/dL (0.2-1.0); CALCIUM, SERUM 10.1 mg/dL (8.5-10.1); CARBON DIOXIDE 29 mmol/L (21-32); CHLORIDE 98 mmol/L (98-107); GLUCOSE 95 mg/dL (74-106); POTASSIUM 4.6 mmol/L (3.5-5.1); SODIUM SERUM 136 mmol/L (136-145); UREA NITROGEN, BLOOD 53 mg/dL (7-18)
[2021-05-16 16:00] LABS: CREATININE 7.8 mg/dL (0.6-1.3)
--- NOTE | 2021-05-16 16:09 | NUR ---
CALLED LAB FOR PCR
[2021-05-16] MEDS ORDERED: Z GUARD REMEDY 2 OZ OINT TP PRN (17:00)
[2021-05-16] MEDS ORDERED: NEPRO VAN 237 ML CAN GT PRN (17:00)
[2021-05-16] MEDS ORDERED: NA PHOS,M-B/NA PHOS,DI-BA 1 EA ENEMA RC PRN (17:00)
[2021-05-16] MEDS ORDERED: HYDROCODONE/APAP 10/325MG TABLET GT PRN (17:00)
[2021-05-16] MEDS ORDERED: BISACODYL SUPP (10 MG) 10 MG/SUPP.RECT SUPP.RECT RC PRN (17:00)
[2021-05-16] MEDS ORDERED: DEXTROSE 50%-WATER 50 ML DISP.SYRIN IV PRN (17:00)
[2021-05-16] MEDS ORDERED: POLYETHYLENE GLYCOL 3350 17 GM POWD.PACK GT PRN (17:00)
[2021-05-16] MEDS ORDERED: HOME MED MISCELLANEOUS XX SCH (17:00)
[2021-05-16] MEDS ORDERED: ACETAMINOPHEN 650 MG/20.3 ML UDC GT PRN (17:00)
--- NOTE | 2021-05-16 18:02 | NUR ---
BED 115-1. ADMITTING AND NURSE NOTIFIED.
--- NOTE | 2021-05-16 18:10 | NUR ---
REPORT GIVEN TO ROOM 115-1 NURSE FOR CABRERA
[2021-05-16] MEDS ORDERED: POLYVINYL ALCOHOL 15 ML BOTTLE OP PRN (18:30)
[2021-05-16] MEDS ORDERED: ALBUTEROL FS 2.5 MG/0.5 ML VIAL.NEB NEB PRN (18:30)
[2021-05-16] MEDS ORDERED: IPRATROPIUM NEB FS 0.5 MG/2.5 ML AMPUL.NEB NEB PRN (18:30)
[2021-05-16] MEDS ORDERED: diphenhydrAMINE HCL ELIX 25 MG/10 ML UDC GT PRN (18:30)
--- NOTE | 2021-05-16 19:47 | NUR ---
RN OPENING NOTE RECEIVED PT LAYING IN BED, A/O X1; VERBAL STIMULI, TOUCH AND LIGHT PAIN. ON ROOM AIR, NO SOB OR RESP. DISTRESS NOTED. SKIN ASSESSED, DISCOLORATION NOTED IN (B)LE. G-TUBE IN PLACE, CLEAN DRESSING. OLD TRACH INCISION NOTED, CLOSED, CLEAN AND INTACT LEFT OPEN TO AIR. G-TUBE PLACEMENT VERIFIED BY AUSCULTATION. FLUSHED AND PATENT. PT. CURRENT NPO PER MD ORDERS; PENDING FNS CONSULT. FLACC SCALE USED FOR PAIN ASSESSMENT, NO PAIN NOTED. ASPIRATION PRECAUTIONS AND SEIZURE PRECAUTIONS IN PLACE R/T TO HX OF EPILEPSY. SAFETY MEASURES IN PLACE: BED LOCKED IN LOWEST POSITION. CALL LIGHT WITHIN REACH, BED ALARM ON, SIDE RAILS UP X3. NO ACUTE DISTRESS NOTED AT THIS TIME.
[2021-05-16 20:00] VITALS: BP 129/84
[2021-05-16] MEDS: SEVELAMER CARBONATE 800 MG POWD.PACK GT SCH (21:29)
[2021-05-16] MEDS: BLOOD SUGAR DIAGNOSTIC 1 EACH STRIP IN SCH (21:29)
[2021-05-16] MEDS: MIDODRINE HCL (5MG) 5 MG TABLET GT SCH (21:29)
[2021-05-16] MEDS: LEVETIRACETAM SOL (5 ML) 100 MG/ML UDC GT SCH (21:30)
--- NOTE | 2021-05-16 21:30 | NUR ---
RN NOTE SPOKE WITH BRITTANI NEUMANN, PT'S SISTER. UPDATED HER ON PT.'S CURRENT PLAN OF CARE. VERBALIZED CONCERN OF TUBE FEEDING BEING STOPPED. AWARE FNS CONSULT IS ORDERED AND WILL BE UPDATED TOMORROW, VERBALIZED UNDERSTANDING. STATES SHE WILL POSSIBLY VISIT TOMORROW IF PCR IS NEGATIVE.
[2021-05-17] VITALS (8 sets, daily range): BP systolic 114–149; BP diastolic 68–98
--- NOTE | 2021-05-17 | NUR ---
RN NOTE POC GLUCOSE TESTING COMPLETED, BLOOD GLUCOSE OF 83 mg/dL READ. NO INSULIN COVERAGE NEEDED.
[2021-05-17] MEDS: INSULIN REGULAR, HUMAN 100 UNIT/ML 3 ML VIAL SQ PRN ×2 (02:52→05:35)
[2021-05-17] MEDS: BLOOD SUGAR DIAGNOSTIC 1 EACH STRIP IN SCH ×5 (05:34→23:50)
--- NOTE | 2021-05-17 05:35 | NUR ---
RN NOTE POC GLUCOSE TESTING COMPLETED, BLOOD GLUCOSE OF 80 mg/dL READ. NO INSULIN COVERAGE NEEDED.
[2021-05-17 06:10] LABS: EOSINOPHILS % (AUTO) 1.9 % (0.0-6.0); HEMATOCRIT 34 % (39-51); HEMOGLOBIN 10.9 g/dL (13.5-17.5); LYMPHOCYTES # (AUTO) 1.6 K/uL (0.8-4.8); LYMPHOCYTES % (AUTO) 33.2 % (20.0-44.0); MEAN CORPUSCULAR HGB CONC 32 g/dl (31.0-36.0); MEAN CORPUSCULAR VOLUME 91 fL (80-96); MONOCYTES # (AUTO) 0.4 K/uL (0.1-1.30); MONOCYTES % (AUTO) 8.6 % (2.0-12.0); NEUTROPHILS # (AUTO) 2.7 K/uL (1.8-8.9); NEUTROPHILS % (AUTO) 55.3 % (43.0-81.0); PLATELET COUNT (AUTO) 87 K/uL (150-450); RED BLOOD CELL COUNT(AUTO) 3.68 MIL/uL (4.5-6.0); WHITE BLOOD COUNT (AUTO) 4.9 K/uL (4.3-11.0)
[2021-05-17 06:29] LABS: CALCIUM, SERUM 10.1 mg/dL (8.5-10.1); PHOSPHORUS 5.6 mg/dL (2.5-4.9); POTASSIUM 4.1 mmol/L (3.5-5.1)
[2021-05-17 06:36] LABS: CREATININE 8.9 mg/dL (0.6-1.3)
--- NOTE | 2021-05-17 06:40 | NUR ---
RN CLOSING NOTE PT. SLEEPING IN BED, A/O X1; VERBAL STIMULI, TOUCH AND LIGHT PAIN. ON ROOM AIR, NO SOB OR RESP. DISTRESS NOTED. SKIN ASSESSED, DISCOLORATION NOTED IN (B)LE. G-TUBE IN PLACE, NEW DRESSING PLACED. OLD TRACH INCISION NOTED, CLOSED, CLEAN AND INTACT LEFT OPEN TO AIR. G-TUBE PLACEMENT VERIFIED BY AUSCULTATION. FLUSHED AND PATENT. PT. CURRENTLY NPO PER MD ORDERS; PENDING FNS CONSULT. FLACC SCALE USED FOR PAIN ASSESSMENT, NO PAIN NOTED. (R) HAND IV FLUSHED, PATENT, CLEAN AND INTACT. (R) GROIN HD CATH NOTED WITH CLEAN DRESSING. POC [id number] COMPLETED Q6H, NO INSULIN COVERAGE NEEDED. ASPIRATION PRECAUTIONS AND SEIZURE PRECAUTIONS IN PLACE R/T TO HX OF EPILEPSY. HD CATH TO HAVE TPA INSTILLED PER MD NOTES R/T CATH MALFUNCTION AND HD TO BE COMPLETED WELL. SAFETY MEASURES IN PLACE: BED LOCKED IN LOWEST POSITION. CALL LIGHT WITHIN REACH, BED ALARM ON, SIDE RAILS UP X3. NO ACUTE DISTRESS NOTED AT THIS TIME. WILL ENDORSE CONTINUITY OF CARE TO MORNING SHIFT RN.
[2021-05-17] MEDS: SEVELAMER CARBONATE 800 MG POWD.PACK GT SCH ×3 (08:00→17:51)
--- NOTE | 2021-05-17 08:06 | NUR ---
TELE/RN OPENING NOTE RECEIVED PT. SLEEPING IN BED, A/O X1; VERBAL STIMULI, TOUCH AND LIGHT PAIN. ON ROOM AIR, NO SOB OR RESP. DISTRESS NOTED. SKIN ASSESSED, DISCOLORATION NOTED IN (B)LE. G-TUBE IN PLACE, OLD TRACH INCISION NOTED, CLOSED, CLEAN AND INTACT LEFT OPEN TO AIR. G-TUBE PLACEMENT VERIFIED BY AUSCULTATION. FLUSHED AND PATENT. PT. CURRENTLY NPO PER MD ORDERS; PENDING FNS CONSULT. FLACC SCALE USED FOR PAIN ASSESSMENT, NO PAIN NOTED. (R) HAND IV FLUSHED, PATENT, CLEAN AND INTACT. (R) GROIN HD CATH NOTED WITH CLEAN DRESSING. ASPIRATION PRECAUTIONS AND SEIZURE PRECAUTIONS IN PLACE R/T TO HX OF EPILEPSY. HD CATH TO HAVE TPA INSTILLED PER MD NOTES R/T CATH MALFUNCTION AND HD TO BE COMPLETED WELL. SAFETY MEASURES IN PLACE: BED LOCKED IN LOWEST POSITION. CALL LIGHT WITHIN REACH, BED ALARM ON, SIDE RAILS UP X3. NO ACUTE DISTRESS NOTED AT THIS TIME. WILL CONTINUE TO MONITOR PATIENT.
[2021-05-17] MEDS: LEVETIRACETAM SOL (5 ML) 100 MG/ML UDC GT SCH ×2 (10:40→21:06)
[2021-05-17] MEDS: VIT B CMPLX 3/FA/VIT C/BIOTIN 1 TAB TABLET GT SCH (10:40)
[2021-05-17] MEDS: MIDODRINE HCL (5MG) 5 MG TABLET GT SCH ×3 (10:41→17:52)
[2021-05-17] MEDS: LEVOTHYROXINE SODIUM 75 MCG TABLET GT SCH (10:41)
[2021-05-17] MEDS ORDERED: NEPRO VAN 237 ML CAN GT SCH (12:30)
[2021-05-17] MEDS: PROSOURCE / PROSTAT (PYXIS) 30 ML UDC GT SCH (13:32)
[2021-05-17] MEDS: NEPRO VAN 237 ML CAN GT SCH (13:42)
--- NOTE | 2021-05-17 19:19 | NUR ---
TELE/RN CLOSING NOTE PT. IN BED, A/O X1; VERBAL STIMULI, TOUCH AND LIGHT PAIN. ON ROOM AIR, NO SOB OR RESP. DISTRESS NOTED. SKIN ASSESSED, DISCOLORATION NOTED IN (B)LE. G-TUBE IN PLACE, OLD TRACH INCISION NOTED, CLOSED, CLEAN AND INTACT LEFT OPEN TO AIR. G-TUBE PLACEMENT VERIFIED BY AUSCULTATION. FLUSHED AND PATENT. PT. CURRENTLY NPO PER MD ORDERS; PENDING FNS CONSULT. FLACC SCALE USED FOR PAIN ASSESSMENT, NO PAIN NOTED. (R) HAND IV FLUSHED, PATENT, CLEAN AND INTACT. (R) GROIN HD CATH NOTED WITH CLEAN DRESSING. ASPIRATION PRECAUTIONS AND SEIZURE PRECAUTIONS IN PLACE R/T TO HX OF EPILEPSY. HD CATH TO HAVE TPA INSTILLED PER MD NOTES R/T CATH MALFUNCTION AND HD TO BE COMPLETED WELL. SAFETY MEASURES IN PLACE: BED LOCKED IN LOWEST POSITION. CALL LIGHT WITHIN REACH, BED ALARM ON, SIDE RAILS UP X3. NO ACUTE DISTRESS NOTED AT THIS TIME. WILL ENDORSE TO THE NEXT SHIFT FOR CABRERA..
--- NOTE | 2021-05-17 19:30 | NUR ---
RN NOTE TELEPHONE CALL FROM BRITTANI, PATIENT'S SISTER, FOLLOWING UP IF HD CATH HAS BEEN TAKEN CARE OF, ADVISED HER WILL GIVE HER UPDATE SOON AVAILABLE. REACHED OUT TO HD RN ANTHONY KELLER, SAID HE WILL VERIFY, CAME BACK AND SAID HE WILL ADMINISTER ALTEPLASE 2 MG X 2, PER ORDERS FROM DR SOLANO, AND SAID HD WILL BE DONE TOMORROW.
--- NOTE | 2021-05-17 19:30 | NUR ---
RN NOTE RECEIVED PATIENT IN BED, AO X 2, NON VERBAL BUT RESPONDS BY HEAD GESTURES/NODDING. IN NO S/SX OF ACUTE DISTRESS AT THIS TIME. BREATHING EVEN AND UNLABORED, SATURATION AT 97% ON ROOM AIR, SR ON THE MONITOR, HR IS 60. NOTED IV SITE AT R HAND 20G, PATENT AND FLUSHING WELL, AND HD CATH AT R GROIN, INTACT WITH NO S/S OF INFECTION NOTED. NOTED GTUBE INTACT POSITIVE PLACEMENT NOTED, NO RESIDUAL, WITH TUBE FEEDING OF NEPRO AT 40 ML/HR. SEIZURE AND APPROPRIATE ISOLATION PRECAUTIONS IN PLACE. SAFETY MEASURES IMPLEMENTED. PATIENT BED ALARM IS ON. HEAD OF BED ELEVATED. BED IS LOCKED, IN LOWEST POSITION AND SIDE RAILS UP. CALL LIGHT WITHIN REACH OF THE PATIENT. WILL CONTINUE TO MONITOR AND REASSESS FOR ANY CHANGES.
[2021-05-17] MEDS ORDERED: ALTEPLASE CATHFLO 2 MG/VIAL ONE (22:25)
[2021-05-17] MEDS ORDERED: ALTEPLASE CATHFLO 2 MG/VIAL XX ONE (22:30)
[2021-05-17] MEDS ORDERED: WATER FOR INJECTION,STERILE 20 ML ONE (22:33)
[2021-05-18] VITALS (7 sets, daily range): BP systolic 111–133; BP diastolic 67–85
[2021-05-18] MEDS: BLOOD SUGAR DIAGNOSTIC 1 EACH STRIP IN SCH ×3 (05:23→17:12)
--- NOTE | 2021-05-18 06:33 | NUR ---
RN NOTE TELEPHONE CALL TO PT'S SISTER, BRITTANI NEUMANN, STATED SHE IS GIVING HER CONSENT FOR PT TO HAVE HEMODIALYSIS, SVETLANA KELLER WITNESS.
[2021-05-18 06:42] LABS: BASOPHILS # (AUTO) 0.1 K/uL (0.0-0.2); EOSINOPHILS % (AUTO) 2.8 % (0.0-6.0); HEMATOCRIT 35 % (39-51); HEMOGLOBIN 11.2 g/dL (13.5-17.5); LYMPHOCYTES # (AUTO) 1.5 K/uL (0.8-4.8); LYMPHOCYTES % (AUTO) 26.8 % (20.0-44.0); MEAN CORPUSCULAR HGB CONC 32 g/dl (31.0-36.0); MEAN CORPUSCULAR VOLUME 92 fL (80-96); MONOCYTES # (AUTO) 0.4 K/uL (0.1-1.30); NEUTROPHILS # (AUTO) 3.4 K/uL (1.8-8.9); NEUTROPHILS % (AUTO) 62.4 % (43.0-81.0); PLATELET COUNT (AUTO) 104 K/uL (150-450); RED BLOOD CELL COUNT(AUTO) 3.81 MIL/uL (4.5-6.0); WHITE BLOOD COUNT (AUTO) 5.5 K/uL (4.3-11.0)
[2021-05-18 06:55] LABS: CALCIUM, SERUM 10.1 mg/dL (8.5-10.1); PHOSPHORUS 6.4 mg/dL (2.5-4.9); POTASSIUM 4.6 mmol/L (3.5-5.1)
[2021-05-18 06:57] LABS: CREATININE 10.7 mg/dL (0.6-1.3)
--- NOTE | 2021-05-18 07:19 | NUR ---
RN NOTE PT REMAINS IN ROOM, NO SIGN OF ACUTE DISTRESS NOTED, BREATHING UNLABORED, SATURATION AT 99% ON ROOM AIR. GTUBE REMAINS PATENT, TUBE FEEDING OF NEPRO RUNNING AT 40 ML/HR. REPORT GIVEN TO KITA KELLER FOR CABRERA.
--- NOTE | 2021-05-18 07:20 | NUR ---
RN OPENING NOTE Received patient asleep in bed appears calm and relaxed. Patient on room air tolerating well no signs of distress. Patient non-verbal AOx2 follows commands. Patient on Nepro @40ml/hr tolerating well.. Has R. hand #20 and Wesley diaz HD cath. Safety measures maintained. Call light within reach. Will cont to monitor.
[2021-05-18] MEDS: LEVETIRACETAM SOL (5 ML) 100 MG/ML UDC GT SCH ×2 (08:12→20:58)
[2021-05-18] MEDS: VIT B CMPLX 3/FA/VIT C/BIOTIN 1 TAB TABLET GT SCH (08:12)
[2021-05-18] MEDS: SEVELAMER CARBONATE 800 MG POWD.PACK GT SCH ×3 (08:12→17:11)
[2021-05-18] MEDS: LEVOTHYROXINE SODIUM 75 MCG TABLET GT SCH (08:13)
[2021-05-18] MEDS: MIDODRINE HCL (5MG) 5 MG TABLET GT SCH ×3 (08:13→16:24)
[2021-05-18] MEDS: PROSOURCE / PROSTAT (PYXIS) 30 ML UDC GT SCH (08:14)
--- NOTE | 2021-05-18 17:18 | NUR ---
Report given to Duglas for dilma. Patient in bed awake no signs of distress. all due meds given..
--- NOTE | 2021-05-18 18:55 | NUR ---
RN CLOSING NOTES NO SOB OR ANY DISTRESS. NO PAIN REPORTED AT THIS TIME. KEPT CLEAN AND COMFORTABLE. SAFETY MEASURES IN PLACE. WILL ENDORSE TO NIGHT RN FOR CABRERA.
--- NOTE | 2021-05-18 19:30 | NUR ---
RN NOTE RECEIVED PATIENT IN BED, AO X 2, NON VERBAL BUT RESPONDS BY HEAD GESTURES/NODDING. IN NO S/SX OF ACUTE DISTRESS AT THIS TIME. BREATHING EVEN AND UNLABORED, SATURATION AT 96% ON ROOM AIR, SR ON THE MONITOR, HR IS 61. NOTED IV SITE AT R HAND 20G, PATENT AND FLUSHING WELL, AND HD CATH AT R GROIN, INTACT WITH NO S/S OF INFECTION NOTED. GTUBE INTACT POSITIVE PLACEMENT NOTED, NO RESIDUAL, WITH TUBE FEEDING OF NEPRO AT 40 ML/HR. SEIZURE AND APPROPRIATE ISOLATION PRECAUTIONS IN PLACE. SAFETY MEASURES IMPLEMENTED. PATIENT BED ALARM IS ON. HEAD OF BED ELEVATED. BED IS LOCKED, IN LOWEST POSITION AND SIDE RAILS UP. CALL LIGHT WITHIN REACH OF THE PATIENT. WILL CONTINUE TO MONITOR AND REASSESS FOR ANY CHANGES.
[2021-05-19] VITALS: BP 114/78
[2021-05-19] MEDS: BLOOD SUGAR DIAGNOSTIC 1 EACH STRIP IN SCH ×3 (00:21→12:05)
[2021-05-19 04:00] VITALS: BP 119/89
--- NOTE | 2021-05-19 07:08 | NUR ---
RN NOTE PT REMAINS IN ROOM, NO SIGN OF ACUTE DISTRESS NOTED, BREATHING UNLABORED, SATURATION AT 99% ON ROOM AIR. GTUBE REMAINS PATENT, TUBE FEEDING OF NEPRO RUNNING AT 40 ML/HR. REPORT GIVEN TO BRENDAN KELLER FOR CABRERA.
--- NOTE | 2021-05-19 07:10 | NUR ---
RN OPENING NOTE RECEIVED PT IN BED. A/O X2, NON VERBAL. STABLE ON ROOM AIR. NO SOB OR ANY S/SX OF ACUTE DISTRESS AT THIS TIME. SATURATION @96%. SR ON THE MONITOR. IV SITE AT R HAND #20, INTACT, PATENT AND FLUSHING WELL. HD CATH AT R GROIN NOTED. GTUBE CHECKED FOR POSITIVE PLACEMENT, NO RESIDUAL. TUBE FEEDING OF NEPRO @40 ML/HR. SAFETY MEASURES IMPLEMENTED. CALL LIGHT WITHIN REACH. BED ALARM IS ON. HOB ELEVATED. BED LOCKED AND IN LOWEST POSITION WITH SIDE RAILS UP X3. WILL CONTINUE TO MONITOR.
[2021-05-19 08:00] VITALS: BP 118/80
[2021-05-19] MEDS: PROSOURCE / PROSTAT (PYXIS) 30 ML UDC GT SCH (08:27)
[2021-05-19] MEDS: LEVOTHYROXINE SODIUM 75 MCG TABLET GT SCH (08:27)
[2021-05-19] MEDS: LEVETIRACETAM SOL (5 ML) 100 MG/ML UDC GT SCH (08:27)
[2021-05-19] MEDS: VIT B CMPLX 3/FA/VIT C/BIOTIN 1 TAB TABLET GT SCH (08:27)
[2021-05-19] MEDS: MIDODRINE HCL (5MG) 5 MG TABLET GT SCH ×2 (08:28→12:23)
[2021-05-19] MEDS: SEVELAMER CARBONATE 800 MG POWD.PACK GT SCH ×2 (08:28→12:22)
[2021-05-19] MEDS: NEPRO VAN 237 ML CAN GT SCH (10:29)
[2021-05-19 12:00] VITALS: BP 127/71
[2021-05-19] MEDS: INSULIN REGULAR, HUMAN 100 UNIT/ML 3 ML VIAL SQ PRN (12:06)
[2021-05-19 12:23] VITALS: BP 127/71
--- NOTE | 2021-05-19 16:30 | NUR ---
RN NOTES PT DISCHARGED TO [facility] ACCOMPANIED BY AMBULANCE CREW. REPORT GIVEN TO TALI KELLER. NO SOB OR ANY S/S OF DISTRESS. VS STABLE. SKIN IS INTACT. DISCHARGED INSTRUCTIONS PROVIDED, PT NON VERBAL.
== END 2021-05-19 16:45 | DRG 698 ==
LOC: ER 14:48 → TELE1 18:03
PROVIDERS: ADMIT Nurse Practitioner Acute Care; ATTEND Nurse Practitioner Acute Care
DX: T82.41XA Breakdown (mechanical) of vascular dialysis catheter, initial encounter (principal); R53.2 Functional quadriplegia; N18.6 End stage renal disease; I12.0 Hypertensive chronic kidney disease with stage 5 chronic kidney disease or end stage renal disease; J96.10 Chronic respiratory failure, unspecified whether with hypoxia or hypercapnia; G93.1 Anoxic brain damage, not elsewhere classified; K50.90 Crohn's disease, unspecified, without complications; D68.59 Other primary thrombophilia; Y71.2 Prosthetic and other implants, materials and accessory cardiovascular devices associated with adverse incidents; Z86.73 Personal history of transient ischemic attack (TIA), and cerebral infarction without residual deficits; Z86.74 Personal history of sudden cardiac arrest; Z93.1 Gastrostomy status; Z99.2 Dependence on renal dialysis; Z79.4 Long term (current) use of insulin; G40.909 Epilepsy, unspecified, not intractable, without status epilepticus; E66.9 Obesity, unspecified; Z93.0 Tracheostomy status; R13.10 Dysphagia, unspecified; E03.9 Hypothyroidism, unspecified; E11.22 Type 2 diabetes mellitus with diabetic chronic kidney disease; D63.1 Anemia in chronic kidney disease; Z88.1 Allergy status to other antibiotic agents; Z79.51 Long term (current) use of inhaled steroids; Z79.899 Other long term (current) drug therapy; M89.9 Disorder of bone, unspecified; R32 Unspecified urinary incontinence; Y92.129 Unspecified place in nursing home as the place of occurrence of the external cause; Z74.01 Bed confinement status; Z68.28 Body mass index [BMI] 28.0-28.9, adult; I25.2 Old myocardial infarction
CPT/HCPCS: 36415; 71045-TC; 80048-TC; 80061-TC; 80076-TC; 82962-TC; 83735-TC; 84100-TC; 84484-TC; 85025-TC; 85730-TC; 87081-TC; 90935-TC; G0378; J1815; J1953; J2997; U0003

== ENCOUNTER 2021-12-29 05:09 | Inpatient (IN) | payer MEDICARE, OTHER ==
[~2021-12-29] VITALS: Ht 170.2 cm; Wt 75.3 kg
[2021-12-29 05:00] VITALS: BP 115/67
[~2021-12-29 05:09] MED LIST changes: -CLOB15CR5 TP; -COLL30OI TP; +DIPH25TA62 GT; -DOCU50LI GT; -FOLI0.8T23 GT; +FOLI0.8T41 GT; -GLYC1TAB12 GT; +LANS30TA4 GT; +MIDO10TA GT; +NA P133E RC; +ONDA4TAB5 GT; -PANT40TA2 GT; -VITA56.7 TP
--- NOTE | 2021-12-29 05:10 | NUR ---
RN NOTES ADMITTED A 31 Y/O MALE PATIENT DIRECT ADMIT FROM [facility] WITH CHIEF COMPLAINTS OF HYPOTENSION. WITH NASAL CANULA AT 2 LPM SATING 100%. WITH IV ACCESS AT R HAND %20, R GROIN HD CATHETER NO BLEEDING NOTED AT THE SITE. WITH L GROIN CENTRAL LINE TRIPLE LUMEN INTACT FLUSHES WELL. VITAL SIGNS TAKEN AND RECORDED AFEBRILE. SKIN ASSESSMENT DONE. NO BELONGINGS. ALL SAFETY MEASURES IN PLACE. HOB ELEVATED. CALL LIGHT WITHIN REACH. WILL CLOSELY MONITOR THE PATIENT.
--- NOTE | 2021-12-29 06:00 | NUR ---
RN NOTES SPOKE TO BRITTANI (SISTER) ABLE TO GET THE NUMBER OF [facility]. DR. MARQUES INFORMED. WILL ENDORSED TO MORNING NURSE FOR CABRERA.
[2021-12-29] MEDS ORDERED: Z GUARD REMEDY 4 OZ OINT TP PRN (06:30)
[2021-12-29] MEDS ORDERED: ONDANSETRON HCL/PF 4 MG/2 ML VIAL IVP PRN (06:30)
[2021-12-29] MEDS ORDERED: ACETAMINOPHEN 650 MG/20.3 ML UDC GT PRN ×2 (06:30→09:30)
[2021-12-29] MEDS ORDERED: DEXTROSE 50%-WATER 50 ML DISP.SYRIN IV PRN ×2 (06:30→09:30)
[2021-12-29 06:39] LABS: BASOPHILS % (AUTO) 0.6 % (0.0-2.0); EOSINOPHILS % (AUTO) 2.6 % (0.0-6.0); HEMATOCRIT 29 % (39-51); HEMOGLOBIN 8.8 g/dL (13.5-17.5); LYMPHOCYTES # (AUTO) 1.2 K/uL (0.8-4.8); LYMPHOCYTES % (AUTO) 15.2 % (20.0-44.0); MEAN CORPUSCULAR HGB CONC 31 g/dl (31.0-36.0); MEAN CORPUSCULAR VOLUME 89 fL (80-96); MONOCYTES # (AUTO) 0.7 K/uL (0.1-1.30); MONOCYTES % (AUTO) 8.8 % (2.0-12.0); NEUTROPHILS # (AUTO) 5.8 K/uL (1.8-8.9); NEUTROPHILS % (AUTO) 72.8 % (43.0-81.0); PLATELET COUNT (AUTO) 265 K/uL (150-450); RED BLOOD CELL COUNT(AUTO) 3.26 MIL/uL (4.5-6.0); WHITE BLOOD COUNT (AUTO) 7.9 K/uL (4.3-11.0)
[2021-12-29 06:56] LABS: ALBUMIN 3.5 g/dL (3.4-5.0); CALCIUM, SERUM 10.2 mg/dL (8.5-10.1); PHOSPHORUS 5.3 mg/dL (2.5-4.9); POTASSIUM 5.1 mmol/L (3.5-5.1); TOTAL PROTEIN, SERUM 9.1 g/dL (6.4-8.2)
[2021-12-29 07:19] LABS: CREATININE 8.6 mg/dL (0.6-1.3)
--- NOTE | 2021-12-29 07:58 | NUR ---
RN OPENING NOTE PATIENT IN BED RESTING. BREATHING IS EVEN AND UNLABORED WITH NASAL CANULA AT 2 LPM SPO2 100%. WITH IV ACCESS AT R HAND %20, R GROIN HD CATHETER NO BLEEDING NOTED AT THE SITE. WITH L GROIN CENTRAL LINE TRIPLE LUMEN INTACT AND PATENT. ALL SAFETY MEASURES IN PLACE. HOB ELEVATED. CALL LIGHT WITHIN REACH. WILL CONTINUE TO MONITOR.
[2021-12-29 08:00] VITALS: BP 120/83
[2021-12-29] MEDS ORDERED: LEVE250T2 GT (08:19)
[2021-12-29] MEDS ORDERED: GUAI100S9 GT (08:19)
[2021-12-29] MEDS ORDERED: ASCO-352 GT (08:19)
[2021-12-29] MEDS ORDERED: CLON0.1T GT (08:19)
[2021-12-29] MEDS ORDERED: METO50TA16 GT (08:19)
[2021-12-29] MEDS ORDERED: DOCU50LI GT (08:19)
[2021-12-29] MEDS ORDERED: MULT-754 GT (08:19)
[2021-12-29] MEDS ORDERED: NIFE-34 GT (08:19)
[2021-12-29] MEDS ORDERED: PANT40SU2 GT (08:19)
[2021-12-29] MEDS ORDERED: APIX5TAB GT (08:19)
[2021-12-29] MEDS ORDERED: LEVOFLOXACIN 500 MG /D5W 100ML 500 MG in PREMIX 1 EA IV SCH (09:00)
[2021-12-29] MEDS: PANTOPRAZOLE 40 MG/PACK PACK GT SCH (09:22)
[2021-12-29] MEDS ORDERED: NEPRO VAN 237 ML CAN GT SCH (09:30)
[2021-12-29] MEDS ORDERED: *INSULIN REGULAR(HUMULIN R)HUM 100 UNIT/ML VIAL SQ PRN (09:30)
[2021-12-29] MEDS ORDERED: GUAIFENESIN 300 MG/15 ML UDC GT PRN (09:30)
[2021-12-29] MEDS ORDERED: POLYETHYLENE GLYCOL 3350 17 GM POWD.PACK GT PRN (09:30)
[2021-12-29] MEDS ORDERED: BISACODYL SUPP (10 MG) 10 MG/SUPP.RECT SUPP.RECT RC PRN (09:30)
[2021-12-29] MEDS ORDERED: diphenhydrAMINE HCL ELIX 25 MG/10 ML UDC GT PRN (10:30)
[2021-12-29] MEDS: BLOOD SUGAR DIAGNOSTIC 1 EACH STRIP VI SCH ×2 (10:33→12:00)
[2021-12-29] MEDS: DOCUSATE SODIUM LIQ 100 MG/10 ML UDC GT SCH (10:36)
[2021-12-29] MEDS ORDERED: APIXABAN 5 MG TABLET GT SCH (11:00)
[2021-12-29] MEDS ORDERED: VANCOMYCIN 1 GM in IV D5W 250 ML IV ONE (11:00)
[2021-12-29] MEDS ORDERED: NEPRO 1,000 ML BOTTLE GT SCH (11:00)
[2021-12-29 12:00] VITALS: BP 120/76
[2021-12-29] MEDS: NEPRO 1,000 ML BOTTLE GT PRN (12:10)
[2021-12-29] MEDS: BLOOD SUGAR DIAGNOSTIC 1 EACH STRIP IN SCH ×2 (12:39→17:17)
[2021-12-29] MEDS: SEVELAMER CARBONATE 800 MG POWD.PACK GT SCH ×2 (12:57→17:02)
[2021-12-29] MEDS: CLONIDINE HCL 0.1 MG TABLET GT SCH ×2 (12:57→17:03)
[2021-12-29] MEDS: MEROPENEM 500 MG in IV NS 0.9% 50 ML IV SCH ×2 (13:33→21:40)
[2021-12-29 16:00] VITALS: BP 111/63
[2021-12-29] MEDS: LEVETIRACETAM SOL (5 ML) 100 MG/ML UDC GT SCH (17:02)
[2021-12-29] MEDS: VIT B CMPLX 3/FA/VIT C/BIOTIN 1 TAB TABLET GT SCH (17:02)
--- NOTE | 2021-12-29 18:41 | NUR ---
RN CLOSING NOTE PATIENT REMAINED STABLE THROUGHOUT SHIFT. PATIENT IS A/0X1-2 NON VERBAL. PATIENT IN BED RESTING. BREATHING IS EVEN AND UNLABORED WITH NASAL CANULA AT 2 LPM SPO2 97%. WITH IV ACCESS AT R HAND %20, R GROIN HD CATHETER NO BLEEDING NOTED AT THE SITE. WITH L GROIN CENTRAL LINE TRIPLE LUMEN INTACT AND PATENT. PATIENT HAS GTUBE INTACT AND PATENT RUNNING NEPRO @ 75ML/HR. ALL NEEDS MET AND MEDS ADM PER MD ORDER. ALL SAFETY MEASURES IN PLACE. HOB ELEVATED. CALL LIGHT WITHIN REACH. WILL ENDORSE TO WAFER SLICER RN.
[2021-12-29 20:00] VITALS: BP 110/68
--- NOTE | 2021-12-29 20:42 | NUR ---
SHIRT FINISHER OPENING NOTES: RECEIVED PATIENT AWAKE IN BED, BED IN LOW POSITION, CALL LIGHTS WITHIN REACH, NO COMPLAIN OF PAIN AND DISCOMFORT AT THIS TIME, PATIENT IS NONE VERBAL NO FACIAL GRIMACING WAS OBSERVED, ON 2LPM VIA NASAL CANNULA SATURATING WELL, NPO, ON G TUBE FEEDING OF NEPRO @75ML PER HOUR INFUSING WELL, PATIENT HAS R GROIN HD CATHETER AND L GROIN CENTRAL LINE INTACT, PATIENT KEPT CLEAN AND DRY ALL NEEDS MET WILL CONTINUE TO MONITOR.
[2021-12-29] MEDS: METOPROLOL TARTRATE 50 MG TABLET GT SCH (21:41)
[2021-12-30] VITALS: BP 126/71
[2021-12-30] MEDS: CLONIDINE HCL 0.1 MG TABLET GT SCH ×5 (01:33→23:57)
[2021-12-30] MEDS: BLOOD SUGAR DIAGNOSTIC 1 EACH STRIP IN SCH ×5 (01:38→23:56)
[2021-12-30 04:00] VITALS: BP 141/81
[2021-12-30] MEDS: NEPRO 1,000 ML BOTTLE GT PRN ×2 (05:03→23:52)
--- NOTE | 2021-12-30 05:30 | NUR ---
FIBER OPTICS TECHNICIAN NOTE BLOOD CX RESULT CAME FROM WILIAN BARNHART. NEW ORDER RECEIVED ORDER NOTED AND CARRIED OUT.
[2021-12-30] MEDS ORDERED: PANTOPRAZOLE 40 MG/PACK PACK GT SCH (06:00)
[2021-12-30 06:25] LABS: BASOPHILS % (AUTO) 0.6 % (0.0-2.0); EOSINOPHILS % (AUTO) 2.7 % (0.0-6.0); HEMATOCRIT 25 % (39-51); HEMOGLOBIN 7.9 g/dL (13.5-17.5); LYMPHOCYTES # (AUTO) 1.3 K/uL (0.8-4.8); LYMPHOCYTES % (AUTO) 16.6 % (20.0-44.0); MEAN CORPUSCULAR HGB CONC 32 g/dl (31.0-36.0); MEAN CORPUSCULAR VOLUME 87 fL (80-96); MONOCYTES # (AUTO) 0.7 K/uL (0.1-1.30); MONOCYTES % (AUTO) 9.1 % (2.0-12.0); NEUTROPHILS # (AUTO) 5.6 K/uL (1.8-8.9); PLATELET COUNT (AUTO) 273 K/uL (150-450); RED BLOOD CELL COUNT(AUTO) 2.86 MIL/uL (4.5-6.0); WHITE BLOOD COUNT (AUTO) 7.9 K/uL (4.3-11.0)
--- NOTE | 2021-12-30 07:03 | NUR ---
ACUTE CARE REGISTERED NURSE CLOSING NOTES: PATIENT AWAKE IN BED NO COMPLAIN OF PAIN AND DISCOMFORT AT THIS TIME, BED IN LOW POSITION CALL LIGHTS WITHIN REACH, ON TELE MONITORING, ST-106, WITH IV LINE AT RT HAND WITH NSS@85ML PER HOUR INFUSING WELL, PATIENT KEPT CLEAN AND DRY ALL NEEDS MET ENDORSE TO INCOMING SHIFT.
[2021-12-30 08:00] VITALS: BP 141/81
[2021-12-30 08:21] LABS: CALCIUM, SERUM 10.2 mg/dL (8.5-10.1); MAGNESIUM 3.2 mg/dL (1.8-2.4); PHOSPHORUS 3.9 mg/dL (2.5-4.9); POTASSIUM 4.9 mmol/L (3.5-5.1)
[2021-12-30 08:22] LABS: CREATININE 10.1 mg/dL (0.6-1.3)
[2021-12-30] MEDS: ASCORBIC ACID 500 MG TABLET GT SCH (08:26)
[2021-12-30] MEDS: DOCUSATE SODIUM LIQ 100 MG/10 ML UDC GT SCH (08:27)
[2021-12-30] MEDS: MULTIVITAMINS,THERAGRAN 1 UDTAB TABLET GT SCH (08:28)
[2021-12-30] MEDS: METOPROLOL TARTRATE 50 MG TABLET GT SCH ×2 (08:28→21:43)
[2021-12-30] MEDS: LEVOTHYROXINE SODIUM 75 MCG TABLET GT SCH (08:29)
[2021-12-30] MEDS: PANTOPRAZOLE 40 MG/PACK PACK GT SCH (08:29)
[2021-12-30] MEDS: LEVETIRACETAM SOL (5 ML) 100 MG/ML UDC GT SCH ×2 (08:30→17:28)
[2021-12-30] MEDS: MEROPENEM 500 MG in IV NS 0.9% 50 ML IV SCH (08:55)
[2021-12-30] MEDS ORDERED: NIFEDIPINE 60 MG GT SCH (09:00)
[2021-12-30] MEDS ORDERED: VANCOMYCIN POST DIALYSIS 500MG IV PRN ×2 (10:30)
[2021-12-30 12:00] VITALS: BP 105/64
[2021-12-30] MEDS: SEVELAMER CARBONATE 800 MG POWD.PACK GT SCH ×2 (12:31→17:28)
[2021-12-30 16:00] VITALS: BP 117/67
[2021-12-30] MEDS: VIT B CMPLX 3/FA/VIT C/BIOTIN 1 TAB TABLET GT SCH (17:28)
--- NOTE | 2021-12-30 19:21 | NUR ---
CHANGE OF SHIFT REPORT PT RESTING COMFORTABLY IN BED. NO S/S OR C/O PAIN OR DISTRESS NOTED. SIDE RAILS UP X2, CALL LIGHT LEFT WITHIN REACH. PT KEPT CLEAN, DRY, AND COMFORTABLE. REPORT GIVEN TO RAVINDRA KELLER.
[2021-12-30] MEDS: IPRATROPIUM/ALBUTEROL INHALER IH SCH (19:30)
[2021-12-30 20:00] VITALS: BP 119/82
--- NOTE | 2021-12-30 20:00 | NUR ---
STENCIL MACHINE OPERATOR NOTE PT IN BED AWAKE. DIALYSIS IN PROGRESS. NO DISTRESS OR DISCOMFORT NOTED. NO S/S OF PAIN NOTED. ON O2 2L VIA NC O2 SAT 98%. GTF NEPRO INFUSING AT 75 ML/HR, 0 ML RESIDUAL NOTED. LT GROIN CENTRAL LINE. RT GROIN WITH HD CATH. HD NURSE APPLIED NEW DRESSING. KEPT HIM DRY AND CLEAN. SIDE RAILS UP X 3 AND CALL LIGHT WITHIN REACH. VSS. CONTINUE TO MONITOR.
[2021-12-30] MEDS ORDERED: ALTEPLASE CATHFLO 2 MG/VIAL XX ONE (21:00)
[2021-12-30] MEDS ORDERED: ALTEPLASE CATHFLO 2 MG/VIAL ONE (21:09)
[2021-12-30] MEDS ORDERED: VANCOMYCIN 1 GM VIAL ONE (21:37)
--- NOTE | 2021-12-30 21:46 | NUR ---
ACTION FINISHER NOTE VANCO POST HD 500 MG IVPB GIVEN. ALSO HD NURSE STOPPED THE HD AT 2030 DUE TO OCCLUSION. ONLY 1 HR OF HD DONE. AND 300 ML OUTPUT. HD NURSE ALSO GAVE ALTEPLASE CATHFLO ORDERED TO FLUSH THE HD CATH. CONTINUE TO MONITOR VSS.
[2021-12-31] VITALS: BP 148/90
[2021-12-31] MEDS: CLONIDINE HCL 0.1 MG TABLET GT SCH ×3 (00:02→17:01)
[2021-12-31] MEDS: IPRATROPIUM/ALBUTEROL INHALER IH SCH ×3 (01:30→21:12)
[2021-12-31 04:00] VITALS: BP 136/81
--- NOTE | 2021-12-31 05:00 | NUR ---
TAG METER OPERATOR NOTE HD NURSE ARRIVED AND STARTED HD. PT IN NO DISTRESS OR DISCOMFORT NOTED.
--- NOTE | 2021-12-31 06:00 | NUR ---
RAIL TRACK LAYER NOTE PT NOTED WHILE IN HD STARTED TO VOMITING NOTED GT FEEDING SECRETIONS. 0 ML RESIDUAL NOTED. DISCONNECTED THE FEEDING AT THIS TIME. KEPT HOB ELEVATED. CLEAN THE PT. INFORMED AND RECEIVED THE ORDER FOR STAT CXR R/O ANY ASPIRATION. BS 114.
[2021-12-31] MEDS: BLOOD SUGAR DIAGNOSTIC 1 EACH STRIP IN SCH ×4 (06:42→23:42)
--- NOTE | 2021-12-31 06:44 | NUR ---
CHARGE ACCOUNTS AUDIT CLERK NOTE HELD 6 AM MEDS DUE TO HD IN PROGRESS. WILL ENDORSE TO DAY SHIFT NURSE TO FOLLOW UP. PT IN NO DISTRESS OR DISCOMFORT NOTED. NO S/S OF ANY PAIN NOTED. RADIOLOGY ARRIVED TO TAKE STAT CXR.
--- NOTE | 2021-12-31 07:30 | NUR ---
RN OPENING NOTES RECEIVED PATIENT IN BED ASLEEP WITH HD ONGOING. O2 @ 2LPM VIA NC SATING 99%, GT IN PLACE. STAT CHEST XRAY ENDORSED FOR PATIENT HAD EPISODE OF VOMITING AT FILAMENT WOUND PARTS FABRICATOR. TF ON HOLD. LEFT GROIN CENTRAL LINE TRIPLE LUMEN CATH PATENT AND INTACT. BED TO LOWEST POSITION AND LOCKED. CALL; LIGHT WITHIN REACH.
[2021-12-31 08:00] VITALS: BP 98/70
--- NOTE | 2021-12-31 08:28 | NUR ---
RN NOTES HD DONE WITH 3L OUT. V/S POST HD 118/71MMHG, HR 100, RR 16, T 98.2F. PATIENT IN STABLE CONDITION. NO BLEEDING ON THE RIGHT FEMORAL CATH SITE.
[2021-12-31] MEDS: PANTOPRAZOLE 40 MG/PACK PACK GT SCH (09:36)
[2021-12-31] MEDS: DOCUSATE SODIUM LIQ 100 MG/10 ML UDC GT SCH (09:36)
[2021-12-31] MEDS: LEVOTHYROXINE SODIUM 75 MCG TABLET GT SCH (09:36)
[2021-12-31] MEDS: ASCORBIC ACID 500 MG TABLET GT SCH (09:36)
[2021-12-31] MEDS: MULTIVITAMINS,THERAGRAN 1 UDTAB TABLET GT SCH (09:36)
[2021-12-31] MEDS: LEVETIRACETAM SOL (5 ML) 100 MG/ML UDC GT SCH ×2 (09:36→16:56)
[2021-12-31] MEDS: METOPROLOL TARTRATE 50 MG TABLET GT SCH ×2 (09:37→21:09)
[2021-12-31] MEDS: SEVELAMER CARBONATE 800 MG POWD.PACK GT SCH ×3 (09:39→17:03)
[2021-12-31] MEDS: MEROPENEM 500 MG in IV NS 0.9% 50 ML IV SCH (09:40)
[2021-12-31] MEDS: NEPRO 1,000 ML BOTTLE GT PRN (11:31)
[2021-12-31] MEDS: INSULIN REGULAR, HUMAN 100 UNIT/ML 3 ML VIAL SQ PRN ×2 (11:31→17:23)
[2021-12-31 12:00] VITALS: BP 104/63
[2021-12-31 16:00] VITALS: BP 107/65
[2021-12-31] MEDS: VIT B CMPLX 3/FA/VIT C/BIOTIN 1 TAB TABLET GT SCH (17:02)
--- NOTE | 2021-12-31 18:28 | NUR ---
RN CLOSING NOTES PATIENT AWAKE IN BED WITH FAMILY AT BEDSIDE. NO FACIAL GRIMACING NOTED. NOT IN DISTRESS. BED TO LOWEST POSITION AND LOCKED. CALL LIGHT WITHIN REACH. WILL ENDORSE TO WASH HOUSE WORKER NURSE ON DUTY.
[2021-12-31 20:00] VITALS: BP 117/74
[2022-01-01] VITALS: BP 118/64
[2022-01-01] MEDS: IPRATROPIUM/ALBUTEROL INHALER IH SCH ×2 (00:36→01:30)
[2022-01-01] MEDS: CLONIDINE HCL 0.1 MG TABLET GT SCH ×4 (00:36→17:09)
[2022-01-01] MEDS: NEPRO 1,000 ML BOTTLE GT PRN ×2 (01:43→17:34)
[2022-01-01 04:00] VITALS: BP 118/76
--- NOTE | 2022-01-01 05:57 | NUR ---
RN NOTE INFORMED DR. MARIO THAT PATIENT HAS REMOVED TELE MONITOR MULTIPLE TIMES, AND HAS NOT REMOVED IV ACCESS OF THE TLC. RECEIVED ORDER FOR BILATERAL SOFT WRIST RESTRAINTS. ORDER READ BACK AND CARRIED OUT.
[2022-01-01] MEDS: BLOOD SUGAR DIAGNOSTIC 1 EACH STRIP IN SCH ×3 (06:34→17:23)
--- NOTE | 2022-01-01 06:53 | NUR ---
RN NOTE INFORMED PHAMACY THAT PATIENT HAS 2 ORDERS FOR PANTOPRAZOLE OS PACKS ORDERED, ONE FOR 0600 AND 0900. RETURNED PACKET. PHARMACY WILL CORRECT. WILL ENDORSE TO NEXT SHIFT.
--- NOTE | 2022-01-01 06:54 | NUR ---
RN NOTE INFORMED FAMILY THAT PATIENT IS ON BILATERAL SOFT WRIST RESTRAINTS.
--- NOTE | 2022-01-01 07:15 | NUR ---
RN NOTE PATIENT RESTING IN BED. NONVERBAL BUT ABLE TO NOD. 2L VIA NASAL CANNULA. NO RESPIRATORY DISTRESS. NO S/S PAIN NOTED. VSS. AFEBRILE. SINUS TACHYCARDIA ON THE MONITOR. BILATERAL SOFT WRIST IN PLACE. GTUBE RUNNING NEPRO@75 NO RESIDUAL , FLUSHED WITHOUT RESISTANCE. NEW ACCESS IN RIGHT HAND#20, HD CATH MAINTAINED. DR MARIO MADE AWARE OF BLOOD CULTURE GRAM POSITIVE COCCI IN CLUSTERS. DR. MARIO ALSO MADE ARE THAT PATIENT IS TO RECEIVE HD TODAY AND HAS CATAPRESS SCHEDULED, RECEIVED ORDER OK TO HOLD CATAPRES. SAFETY MEASURE IN PLACE.
[2022-01-01 07:31] LABS: BASOPHILS # (AUTO) 0.1 K/uL (0.0-0.2); BASOPHILS % (AUTO) 0.9 % (0.0-2.0); EOSINOPHILS % (AUTO) 3.3 % (0.0-6.0); HEMATOCRIT 27 % (39-51); HEMOGLOBIN 8.2 g/dL (13.5-17.5); LYMPHOCYTES # (AUTO) 1.3 K/uL (0.8-4.8); LYMPHOCYTES % (AUTO) 18.7 % (20.0-44.0); MEAN CORPUSCULAR HGB CONC 31 g/dl (31.0-36.0); MEAN CORPUSCULAR VOLUME 87 fL (80-96); MONOCYTES # (AUTO) 0.6 K/uL (0.1-1.30); MONOCYTES % (AUTO) 8.2 % (2.0-12.0); NEUTROPHILS # (AUTO) 4.8 K/uL (1.8-8.9); NEUTROPHILS % (AUTO) 68.9 % (43.0-81.0); PLATELET COUNT (AUTO) 268 K/uL (150-450); RED BLOOD CELL COUNT(AUTO) 3.09 MIL/uL (4.5-6.0); WHITE BLOOD COUNT (AUTO) 6.9 K/uL (4.3-11.0)
--- NOTE | 2022-01-01 07:35 | NUR ---
RN OPENING NOTES RECEIVED PATIENT IN BED AWAKE, PATIENT IS NONVERBAL. O2 @ 2LPM VIA NC TOLERATING WELL WITH SATURATION OF 99%. IV ACCESS ON RIGHT HAND #20, PATENT AND INTACT, FLUSHED WELL. PATIENT WITH GT FEEDING RUNNING AT 75 ML/HR. NO RESIDUAL NOTED. RIGHT GROIN HD CATH INTACT. BILATERAL SOFT WRIST RESTRAINTS IN PLACE, NO SKIN INTEGRITY COMPROMISE, CIRCULATION NOT COMPROMISE, WILL REASSESS ACCORDINGLY. ALL SAFETY MEASURES IN PLACE. BED TO LOWEST POSITION AND LOCKED. CALL LIGHT WITHIN REACH. WILL CONTINUE TO MONITOR AND ASSESS PATIENT THROUGHOUT SHIFT.
[2022-01-01 07:50] LABS: CALCIUM, SERUM 10.7 mg/dL (8.5-10.1); POTASSIUM 4.8 mmol/L (3.5-5.1)
[2022-01-01 07:54] LABS: CREATININE 8.4 mg/dL (0.6-1.3)
[2022-01-01 08:00] VITALS: BP 105/64
[2022-01-01] MEDS: METOPROLOL TARTRATE 50 MG TABLET GT SCH ×2 (09:00→21:00)
[2022-01-01] MEDS: MEROPENEM 500 MG in IV NS 0.9% 50 ML IV SCH (09:24)
[2022-01-01] MEDS: MULTIVITAMINS,THERAGRAN 1 UDTAB TABLET GT SCH (09:24)
[2022-01-01] MEDS: LEVOTHYROXINE SODIUM 75 MCG TABLET GT SCH (09:24)
[2022-01-01] MEDS: PANTOPRAZOLE 40 MG/PACK PACK GT SCH (09:24)
[2022-01-01] MEDS: DOCUSATE SODIUM LIQ 100 MG/10 ML UDC GT SCH (09:24)
[2022-01-01] MEDS: LEVETIRACETAM SOL (5 ML) 100 MG/ML UDC GT SCH ×2 (09:24→17:08)
[2022-01-01] MEDS: ASCORBIC ACID 500 MG TABLET GT SCH (09:24)
[2022-01-01] MEDS: SEVELAMER CARBONATE 800 MG POWD.PACK GT SCH ×3 (09:27→17:08)
[2022-01-01 12:00] VITALS: BP 108/75
--- NOTE | 2022-01-01 15:45 | NUR ---
RN NOTES HD DONE WITH 2L OUT. V/S POST HD 97/63MMHG, HR 97, RR 16, T 98.0F. PATIENT IN STABLE CONDITION. NO BLEEDING ON THE RIGHT FEMORAL CATH SITE.
[2022-01-01 16:00] VITALS: BP 104/74
[2022-01-01] MEDS: VIT B CMPLX 3/FA/VIT C/BIOTIN 1 TAB TABLET GT SCH (17:08)
[2022-01-01] MEDS ORDERED: VANCOMYCIN 1 GM in IV D5W 250 ML IV ONE (18:00)
--- NOTE | 2022-01-01 19:30 | NUR ---
OPHELIA/CLINICAL ABSTRACTOR RECIEVED REPORT FROM DAY NURSE. SEE FLOWSHEET FOR ASSESSMENT. PT WAS TURNED AND REPOSITIONED FOR COMFORT AND CARE. NO ACUTE DISTRESS SEEN TAT THIS TIME. FAMILY AT BEDSIDE, ANSWERED ALL QUESTIONS MOTHER HAD.
--- NOTE | 2022-01-01 19:39 | NUR ---
RN CLOSING NOTES PATIENT REMAINS IN STABLE CONDITION THROUGHOUT SHIFT. PATIENT IN BED AWAKE, WITH FAMILY AT BEDSIDE. O2 @ 2LPM VIA NC TOLERATING WELL WITH SATURATION OF 99%. PATIENT WITH GT FEEDING RUNNING AT 75 ML/HR. NO RESIDUAL NOTED. RIGHT GROIN HD CATH INTACT. ALL DUE MEDS GIVEN ORDERED. KEPT PATIENT CLEAN AND DRY, COMFORTABLE. ALL NEEDS ATTENDED. BILATERAL SOFT WRIST RESTRAINTS IN PLACE, NO SKIN INTEGRITY COMPROMISE, CIRCULATION NOT COMPROMISE. ALL SAFETY MEASURES IN PLACE. BED TO LOWEST POSITION AND LOCKED. CALL LIGHT WITHIN REACH. ENDORSED TO ONCOMING NURSE FOR CONTINUITY OF CARE.
[2022-01-01 20:00] VITALS: BP_SYST 140; BP_SYST 92; BP_DIAS 67; BP_DIAS 75
--- NOTE | 2022-01-01 21:30 | NUR ---
OPHELIA/TRANSMISSION MAINTENANCE SUPERVISOR LOPRESSOR WAS HELD DUE TO LOW BLOOD PRESSOR WHICH WAS 92/67 WITH HEAT RATE 98. CATALYTIC CONVERTER OPERATOR HELPER DR VILLAR MADE AWARE SAID TO HOLD.
--- NOTE | 2022-01-01 23:00 | NUR ---
OPHELIA/EMD TEACHER INFECTIOUS DISEASE ALARM FIELD TECHNICIAN CAME IN TO SEE THIS PT. SAID TO HAVE THE HD CATH REMOVED DUE TO THE SOURCE OF HIS INFECTIONS. WILL PASS ON TO DAY SHIFT, TO HAVE THIS DONE.
[2022-01-02] VITALS: BP_SYST 100; BP_SYST 92; BP_DIAS 66; BP_DIAS 67
--- NOTE | 2022-01-02 00:20 | NUR ---
OPHELIA/COMPUTER OPERATIONS SPECIALIST CATAPRES AT MIDNIGHT WAS HELD FOR LOW BLOOD PRESSURE OF 100/66 WITH HEAT RATE 92. WILL CONTINUE TO MONITOR THIS PT AN HIS BLOOD PRESSURE. ALSO AT THIS TIME MIDNIGHT BLOOD SUGAR IS 103. WHICH THERE IS NO COVERAGE FOR THIS.
[2022-01-02] MEDS: BLOOD SUGAR DIAGNOSTIC 1 EACH STRIP IN SCH ×4 (01:20→17:52)
--- NOTE | 2022-01-02 02:25 | NUR ---
OPHELIA/RACK CARRIER PM CARE WAS PROVIDED AT THIS TIME ALONG WITH ORAL CARE. PT WAS THEN TUNED AND REPOSITED FOR COMFORT AND CARE. PT TOLERATED THIS WELL. WILL CONTINUE TO MONITOR THIS PT.
[2022-01-02 04:00] VITALS: BP 98/62
[2022-01-02] MEDS: CLONIDINE HCL 0.1 MG TABLET GT SCH ×4 (05:39→17:40)
[2022-01-02 07:22] LABS: BASOPHILS # (AUTO) 0.1 K/uL (0.0-0.2); BASOPHILS % (AUTO) 0.9 % (0.0-2.0); EOSINOPHILS % (AUTO) 2.4 % (0.0-6.0); HEMATOCRIT 30 % (39-51); HEMOGLOBIN 9.1 g/dL (13.5-17.5); LYMPHOCYTES # (AUTO) 1.6 K/uL (0.8-4.8); MEAN CORPUSCULAR HGB CONC 31 g/dl (31.0-36.0); MEAN CORPUSCULAR VOLUME 87 fL (80-96); MONOCYTES # (AUTO) 0.6 K/uL (0.1-1.30); MONOCYTES % (AUTO) 7.9 % (2.0-12.0); NEUTROPHILS # (AUTO) 5.2 K/uL (1.8-8.9); NEUTROPHILS % (AUTO) 67.8 % (43.0-81.0); PLATELET COUNT (AUTO) 279 K/uL (150-450); WHITE BLOOD COUNT (AUTO) 7.6 K/uL (4.3-11.0)
--- NOTE | 2022-01-02 07:38 | NUR ---
RN OPENING NOTE PATIENT SLEEPING IN BED UPON ASSESSMENT. PATIENT IS A/0X1 NON VERBAL BASELINE. O2 @ 2LPM VIA NC TOLERATING WELL WITH SATURATION OF 99%. PATIENT WITH GT FEEDING RUNNING AT 75 ML/HR. NO RESIDUAL NOTED. RIGHT GROIN HD CATH INTACT. BILATERAL SOFT WRIST RESTRAINTS IN PLACE, NO SKIN INTEGRITY COMPROMISE, CIRCULATION NOT COMPROMISED. ALL SAFETY MEASURES IN PLACE. BED TO LOWEST POSITION AND LOCKED. CALL LIGHT WITHIN REACH. WILL CONTINUE TO MONITOR.
[2022-01-02 07:52] LABS: CALCIUM, SERUM 10.9 mg/dL (8.5-10.1); CREATININE 7.2 mg/dL (0.6-1.3); POTASSIUM 4.7 mmol/L (3.5-5.1)
[2022-01-02 08:00] VITALS: BP 98/64
[2022-01-02] MEDS: ASCORBIC ACID 500 MG TABLET GT SCH (08:44)
[2022-01-02] MEDS: LEVETIRACETAM SOL (5 ML) 100 MG/ML UDC GT SCH ×2 (08:44→17:39)
[2022-01-02] MEDS: LEVOTHYROXINE SODIUM 75 MCG TABLET GT SCH (08:45)
[2022-01-02] MEDS: MULTIVITAMINS,THERAGRAN 1 UDTAB TABLET GT SCH (08:45)
[2022-01-02] MEDS: MEROPENEM 500 MG in IV NS 0.9% 50 ML IV SCH (08:45)
[2022-01-02] MEDS: PANTOPRAZOLE 40 MG/PACK PACK GT SCH (08:45)
[2022-01-02] MEDS: DOCUSATE SODIUM LIQ 100 MG/10 ML UDC GT SCH (08:45)
[2022-01-02] MEDS: METOPROLOL TARTRATE 50 MG TABLET GT SCH ×3 (08:46→21:10)
[2022-01-02] MEDS: SEVELAMER CARBONATE 800 MG POWD.PACK GT SCH ×3 (09:13→17:40)
[2022-01-02 12:00] VITALS: BP 105/67
[2022-01-02] MEDS: MIDODRINE HCL (5MG) 5 MG TABLET PO SCH ×2 (12:03→17:39)
[2022-01-02] MEDS: NEPRO 1,000 ML BOTTLE GT PRN (12:20)
[2022-01-02 16:00] VITALS: BP 101/65
[2022-01-02] MEDS: VIT B CMPLX 3/FA/VIT C/BIOTIN 1 TAB TABLET GT SCH (17:39)
--- NOTE | 2022-01-02 18:42 | NUR ---
RN CLOSING NOTE PATIENT STABLE THROUGHOUT SHIFT. PATIENT IS A/0X1 NON VERBAL BASELINE. O2 @ 2LPM VIA NC TOLERATING WELL WITH SATURATION OF 99%. PATIENT WITH GT FEEDING RUNNING AT 75 ML/HR. NO RESIDUAL NOTED. PATIENT HAS R HAND 20G PIV INTACT AND PATENT WITH NO FLUIDS RUNNING CURRENTLY. RIGHT GROIN HD CATH INTACT. BILATERAL SOFT WRIST RESTRAINTS IN PLACE, NO SKIN INTEGRITY COMPROMISE, CIRCULATION NOT COMPROMISED. ALL SAFETY MEASURES IN PLACE. BED TO LOWEST POSITION AND LOCKED. CALL LIGHT WITHIN REACH. WILL ENDORSE TO GLASS FORMING CREW MEMBER RN.
[2022-01-02 20:00] VITALS: BP 113/76
--- NOTE | 2022-01-02 20:00 | NUR ---
TELE1 RN NOTES RECEIVED ON BED A/O 1-2,NON VERBAL,MOM AT BEDSIDE,O2 2L/NC IN USED,NO SKIN ISSUES,WITH GT FEEDING OF NEPRO AT 75ML/HR RATE,INFUSING VIA FEEDING PUMP X 18 HOURS.WITH RIGHT HAND SALINE LOCK FOR MEDS,RIGHT GROIN HD CATH FOR HD TREATMENT.FOR HD TODAY,AWAITING FOR HD NURSE.WILL CONTINUE TO MONITOR STATUS.
[2022-01-02] MEDS: IPRATROPIUM/ALBUTEROL INHALER IH SCH (20:48)
[2022-01-03] VITALS: BP 124/92
--- NOTE | 2022-01-03 | NUR ---
TELE1 RN NOTES ACCU-CHECK BLOOD SUGAR CHECK 103,NO INSULIN COVERAGE.GT FEEDING IN PROGRESS,NO RESIDUAL VOLUME NOTED.
--- NOTE | 2022-01-03 | NUR ---
ARIANNA GUERRERO BS 102 MG/DL NO INSULIN COVERAGE Addendum: 01/04/22 at 0644 by DARIAN GUILLORY RN ERROR IN DATE
[2022-01-03] MEDS: BLOOD SUGAR DIAGNOSTIC 1 EACH STRIP IN SCH ×4 (00:19→17:15)
[2022-01-03] MEDS: CLONIDINE HCL 0.1 MG TABLET GT SCH ×4 (00:21→17:15)
--- NOTE | 2022-01-03 02:30 | NUR ---
MARKETING OPERATIONS INTERN NOTES VOMITTED X1,MODERATE IN AMOUNT,ZOFRAN 4MG IV GIVEN ORDERED FOR N/V. NO DIARRHEA NOTED
--- NOTE | 2022-01-03 03:00 | NUR ---
WATER POLLUTION SCIENTIST NOTES MORNING CARE RENDERED.HD CARE DONE,SUCTION NEEDED,REPOSITION TO COMFORT.
[2022-01-03 04:13] VITALS: BP 126/88
--- NOTE | 2022-01-03 06:00 | NUR ---
MARINE ERECTOR NOTES ACCU-CHECK BLOOD SUGAR CHECK 110,NO INSULIN COVERAGE.
--- NOTE | 2022-01-03 06:25 | NUR ---
KEYMODULE ASSEMBLY SUPERVISOR NOTES SLEEPING,AROUSABLE TO VERBAL STIMULI,BREATHING EVEN AND UNLABORED,NAUSEA SUBSIDED,GT FEEDING HOLD THIS TIME.FOR HD TODAY WITH ORDER.IN NO ACUTE DISTRESS.
[2022-01-03 06:58] LABS: BASOPHILS % (AUTO) 0.5 % (0.0-2.0); EOSINOPHILS % (AUTO) 1.5 % (0.0-6.0); HEMATOCRIT 29 % (39-51); HEMOGLOBIN 9.1 g/dL (13.5-17.5); LYMPHOCYTES # (AUTO) 1.4 K/uL (0.8-4.8); LYMPHOCYTES % (AUTO) 15.4 % (20.0-44.0); MEAN CORPUSCULAR HGB CONC 32 g/dl (31.0-36.0); MEAN CORPUSCULAR VOLUME 86 fL (80-96); MONOCYTES # (AUTO) 0.5 K/uL (0.1-1.30); MONOCYTES % (AUTO) 5.4 % (2.0-12.0); NEUTROPHILS # (AUTO) 7.1 K/uL (1.8-8.9); NEUTROPHILS % (AUTO) 77.2 % (43.0-81.0); PLATELET COUNT (AUTO) 276 K/uL (150-450); RED BLOOD CELL COUNT(AUTO) 3.33 MIL/uL (4.5-6.0); WHITE BLOOD COUNT (AUTO) 9.2 K/uL (4.3-11.0)
--- NOTE | 2022-01-03 07:30 | NUR ---
RN NOTE ON G-TUBE FEEDING WITH NEPRO AT 75ML/HR RUNNING WELL.
--- NOTE | 2022-01-03 07:30 | NUR ---
[facility] [employer] INTERMEDIARY OPENING NOTES RECEIVED PATIENT ON BED RESTING AND A/O X1-2, NON VERBAL. ON O2 AT 2LPM VIA NASAL CANNULA TOLERATING WELL. NO SOB NOTED. NOT IN DISTRESS. ON TELE MONITOR CURRENTLY READING SINUS RHYTHM AT 100BPM. WITH NO COMPLAINTS OF PAIN OR DISCOMFORT AT THIS TIME. WITH IV ACCESS AT RIGHT HAND G20 SALINE LOCKED, PATENT AND INTACT. WITH RIGHT GROIN PERMACATH FOR HD WITH CLEAN AND DRY DRESSING. SAFETY MEASURES IN PLACED. CALL LIGHT WITHIN REACH. BED ON LOWEST LOCKED POSITION, SIDE RAILS UP X2. WILL CONTINUE TO MONITOR.
[2022-01-03 07:48] LABS: POTASSIUM 5.1 mmol/L (3.5-5.1)
[2022-01-03 08:00] VITALS: BP 139/83
[2022-01-03] MEDS: LEVETIRACETAM SOL (5 ML) 100 MG/ML UDC GT SCH ×2 (10:24→17:14)
[2022-01-03] MEDS: SEVELAMER CARBONATE 800 MG POWD.PACK GT SCH ×3 (10:24→17:14)
[2022-01-03] MEDS: DOCUSATE SODIUM LIQ 100 MG/10 ML UDC GT SCH (10:24)
[2022-01-03] MEDS: ASCORBIC ACID 500 MG TABLET GT SCH (10:25)
[2022-01-03] MEDS: LEVOTHYROXINE SODIUM 75 MCG TABLET GT SCH (10:25)
[2022-01-03] MEDS: PANTOPRAZOLE 40 MG/PACK PACK GT SCH (10:25)
[2022-01-03] MEDS: MULTIVITAMINS,THERAGRAN 1 UDTAB TABLET GT SCH (10:25)
[2022-01-03] MEDS: METOPROLOL TARTRATE 50 MG TABLET GT SCH ×2 (10:26→21:52)
[2022-01-03] MEDS: MIDODRINE HCL (5MG) 5 MG TABLET PO SCH ×3 (10:26→17:15)
[2022-01-03 12:00] VITALS: BP 128/84
[2022-01-03] MEDS ORDERED: ALTEPLASE CATHFLO 2 MG/VIAL IV ONE (12:00)
--- NOTE | 2022-01-03 12:00 | NUR ---
RN NOTES HEMODIALYSIS NURSE CAYDEN REPORTED HE WASN'T ABLE TO DO HEMODIALYSIS TO THE PATIENT FOR THE LINE IS CLOGGED. ALTEPLASE ORDERED AND GIVEN BY HEMODIALYSIS NURSE AND STILL WEREN'T ABLE TO DO HEMODIALYSIS.
[2022-01-03] MEDS: NEPRO 1,000 ML BOTTLE GT PRN (13:32)
[2022-01-03 16:00] VITALS: BP 98/56
[2022-01-03] MEDS: VIT B CMPLX 3/FA/VIT C/BIOTIN 1 TAB TABLET GT SCH (17:14)
--- NOTE | 2022-01-03 18:42 | NUR ---
TECHNICAL SUPPORT AGENT CLOSING NOTES PATIENT ON BED RESTING AND A/O X1-2, NON VERBAL. ON O2 AT 2LPM VIA NASAL CANNULA TOLERATING WELL. NO SOB NOTED. NOT IN DISTRESS. ON TELE MONITOR CURRENTLY READING SINUS RHYTHM AT 98BPM. WITH NO COMPLAINTS OF PAIN OR DISCOMFORT AT THIS TIME. WITH IV ACCESS AT RIGHT HAND G20 SALINE LOCKED, PATENT AND INTACT. WITH RIGHT GROIN PERMACATH FOR HD WITH CLEAN AND DRY DRESSING. DUE MEDS GIVEN. SAFETY MEASURES IN PLACED. CALL LIGHT WITHIN REACH. BED ON LOWEST LOCKED POSITION, SIDE RAILS UP X2. WILL ENDORSE TO NEXT SHIFT FOR CABRERA.
--- NOTE | 2022-01-03 19:10 | NUR ---
RN NOTES RECEIVED REPORT FROM MORNING RN PATIENT IN BED A/O X1-2 NON VERBAL. WITH OXYGEN INHALATION AT 2LPM VIA NC SATING 100%. WITH IV ACCESS AT R HAND #20 PATENT FLUSHES WELL. WITH HD ACCESS AT R GROIN INTACT NO BLEEDING NOTED.WITH GT PATENT CONNECTED TO CONTINUOS FEEDING NEPRO @75CC/HR. WITH BILATERAL SOFT RESTRAINTS IN PLACE. ALL SAFETY MEASURES IN PLACE. HOB ELEVATED., CALL LIGHT WITHIN REACH. BED ON LOWEST POSITION AND LOCKED. WILL CLOSELY MONITOR THE PATIENT.
[2022-01-03 20:00] VITALS: BP 117/56
[2022-01-03] MEDS: IPRATROPIUM/ALBUTEROL INHALER IH SCH ×2 (21:58→22:10)
[2022-01-04] VITALS: BP 126/84
--- NOTE | 2022-01-04 | NUR ---
RN NOTES BS 102 MG/DL NO INSULIN COVERAGE
[2022-01-04] MEDS: CLONIDINE HCL 0.1 MG TABLET GT SCH ×4 (00:52→17:28)
[2022-01-04] MEDS: BLOOD SUGAR DIAGNOSTIC 1 EACH STRIP IN SCH ×4 (00:57→17:30)
[2022-01-04] MEDS: IPRATROPIUM/ALBUTEROL INHALER IH SCH ×4 (02:59→21:14)
[2022-01-04 04:00] VITALS: BP 111/50
--- NOTE | 2022-01-04 06:00 | NUR ---
RN NOTES BS 98 MG/DL NO INSULIN COVERAGE
--- NOTE | 2022-01-04 06:55 | NUR ---
RN NOTES PATIENT ON BED RESTING AND A/O X1-2, NON VERBAL. ON O2 AT 2LPM VIA NASAL CANNULA TOLERATING WELL. NO SOB NOTED. NOT IN DISTRESS. ON TELE MONITOR CURRENTLY READING SINUS RHYTHM AT 98BPM. WITH NO COMPLAINTS OF PAIN OR DISCOMFORT AT THIS TIME. WITH IV ACCESS AT RIGHT HAND G20 SALINE LOCKED, PATENT AND INTACT. WITH RIGHT GROIN PERMACATH FOR HD WITH CLEAN AND DRY DRESSING. DUE MEDS GIVEN. SAFETY MEASURES IN PLACED. CALL LIGHT WITHIN REACH. BED ON LOWEST LOCKED POSITION, SIDE RAILS UP X2. FOR PERMA CATH RE-INSERTION ON THURSDAY CONSENT SIGNED @ CHART. WILL ENDORSE TO NEXT SHIFT FOR CABRERA.
[2022-01-04 08:00] VITALS: BP 101/61
[2022-01-04] MEDS: NEPRO 1,000 ML BOTTLE GT PRN (08:10)
[2022-01-04 08:12] LABS: BASOPHILS % (AUTO) 0.5 % (0.0-2.0); EOSINOPHILS % (AUTO) 2.1 % (0.0-6.0); HEMATOCRIT 26 % (39-51); HEMOGLOBIN 8.3 g/dL (13.5-17.5); LYMPHOCYTES # (AUTO) 1.5 K/uL (0.8-4.8); LYMPHOCYTES % (AUTO) 19.2 % (20.0-44.0); MEAN CORPUSCULAR HGB CONC 31 g/dl (31.0-36.0); MEAN CORPUSCULAR VOLUME 86 fL (80-96); MONOCYTES # (AUTO) 0.5 K/uL (0.1-1.30); MONOCYTES % (AUTO) 6.1 % (2.0-12.0); NEUTROPHILS # (AUTO) 5.5 K/uL (1.8-8.9); NEUTROPHILS % (AUTO) 72.1 % (43.0-81.0); PLATELET COUNT (AUTO) 237 K/uL (150-450); RED BLOOD CELL COUNT(AUTO) 3.07 MIL/uL (4.5-6.0); WHITE BLOOD COUNT (AUTO) 7.7 K/uL (4.3-11.0)
[2022-01-04 08:47] LABS: CALCIUM, SERUM 10.1 mg/dL (8.5-10.1); POTASSIUM 4.9 mmol/L (3.5-5.1)
[2022-01-04 09:04] LABS: CREATININE 10.5 mg/dL (0.6-1.3)
[2022-01-04] MEDS: ASCORBIC ACID 500 MG TABLET GT SCH (09:20)
[2022-01-04] MEDS: LEVOTHYROXINE SODIUM 75 MCG TABLET GT SCH (09:20)
[2022-01-04] MEDS: DOCUSATE SODIUM LIQ 100 MG/10 ML UDC GT SCH (09:21)
[2022-01-04] MEDS: MIDODRINE HCL (5MG) 5 MG TABLET PO SCH ×3 (09:21→17:28)
[2022-01-04] MEDS: MULTIVITAMINS,THERAGRAN 1 UDTAB TABLET GT SCH (09:21)
[2022-01-04] MEDS: LEVETIRACETAM SOL (5 ML) 100 MG/ML UDC GT SCH ×2 (09:21→17:27)
[2022-01-04] MEDS: PANTOPRAZOLE 40 MG/PACK PACK GT SCH (09:21)
[2022-01-04] MEDS: METOPROLOL TARTRATE 50 MG TABLET GT SCH ×2 (09:22→21:16)
[2022-01-04] MEDS: SEVELAMER CARBONATE 800 MG POWD.PACK GT SCH ×3 (09:37→17:30)
[2022-01-04 12:00] VITALS: BP 97/51
[2022-01-04 16:00] VITALS: BP 112/71
[2022-01-04] MEDS: VIT B CMPLX 3/FA/VIT C/BIOTIN 1 TAB TABLET GT SCH (17:28)
[2022-01-04 20:00] VITALS: BP 95/56
[2022-01-05] MEDS: BLOOD SUGAR DIAGNOSTIC 1 EACH STRIP IN SCH ×4 (00:22→17:19)
[2022-01-05] MEDS: INSULIN REGULAR, HUMAN 100 UNIT/ML 3 ML VIAL SQ PRN ×4 (00:23→17:19)
[2022-01-05] MEDS: CLONIDINE HCL 0.1 MG TABLET GT SCH ×4 (00:32→17:18)
[2022-01-05] MEDS: NEPRO 1,000 ML BOTTLE GT PRN (00:33)
[2022-01-05] MEDS: IPRATROPIUM/ALBUTEROL INHALER IH SCH ×4 (01:30→21:26)
[2022-01-05 04:44] VITALS: BP 127/78
--- NOTE | 2022-01-05 06:16 | NUR ---
END OF SHIFT REPORT Patient in bed, nonverbal. On Oxygen support 2L NC, oxygen sat 100%. Gtube in place, on Nepro at 75ml/hr. Right femoral cath dressing clean and dry. Patient is bedbound, tuned and repositioned. Yossi soft wrist restraints in place, released CSM intact BUE, patient still attempting to remove tubings, yossi soft wrist restraints renewed. Dialysis treatment as planned. Plan for Perma cath placement on Thursday. Will endorse to oncoming RN.
[2022-01-05 07:13] LABS: BASOPHILS % (AUTO) 0.9 % (0.0-2.0); HEMATOCRIT 33 % (39-51); HEMOGLOBIN 11.2 g/dL (13.5-17.5); LYMPHOCYTES # (AUTO) 1.6 K/uL (0.8-4.8); LYMPHOCYTES % (AUTO) 28.8 % (20.0-44.0); MEAN CORPUSCULAR HGB CONC 33 g/dl (31.0-36.0); MEAN CORPUSCULAR VOLUME 93 fL (80-96); MONOCYTES # (AUTO) 0.6 K/uL (0.1-1.30); MONOCYTES % (AUTO) 10.5 % (2.0-12.0); NEUTROPHILS # (AUTO) 3.1 K/uL (1.8-8.9); NEUTROPHILS % (AUTO) 56.8 % (43.0-81.0); PLATELET COUNT (AUTO) 225 K/uL (150-450); RED BLOOD CELL COUNT(AUTO) 3.57 MIL/uL (4.5-6.0); WHITE BLOOD COUNT (AUTO) 5.4 K/uL (4.3-11.0)
[2022-01-05 07:39] LABS: CALCIUM, SERUM 8.1 mg/dL (8.5-10.1); CREATININE 0.9 mg/dL (0.6-1.3); POTASSIUM 3.7 mmol/L (3.5-5.1)
[2022-01-05] MEDS: DOCUSATE SODIUM LIQ 100 MG/10 ML UDC GT SCH (09:25)
[2022-01-05] MEDS: PANTOPRAZOLE 40 MG/PACK PACK GT SCH (09:26)
[2022-01-05] MEDS: ASCORBIC ACID 500 MG TABLET GT SCH (09:26)
[2022-01-05] MEDS: SEVELAMER CARBONATE 800 MG POWD.PACK GT SCH ×3 (09:26→17:19)
[2022-01-05] MEDS: LEVETIRACETAM SOL (5 ML) 100 MG/ML UDC GT SCH ×2 (09:26→16:06)
[2022-01-05] MEDS: METOPROLOL TARTRATE 50 MG TABLET GT SCH ×2 (09:27→21:00)
[2022-01-05] MEDS: LEVOTHYROXINE SODIUM 75 MCG TABLET GT SCH (09:27)
[2022-01-05] MEDS: MULTIVITAMINS,THERAGRAN 1 UDTAB TABLET GT SCH (09:27)
[2022-01-05] MEDS: MIDODRINE HCL (5MG) 5 MG TABLET PO SCH ×3 (09:28→16:06)
[2022-01-05 12:00] VITALS: BP 120/73
--- NOTE | 2022-01-05 12:30 | NUR ---
RN NOTES CAREGIVER AT BEDSIDE TO SEE PATIENT.
[2022-01-05 14:35] LABS: CALCIUM, SERUM 9.6 mg/dL (8.5-10.1); POTASSIUM 5.3 mmol/L (3.5-5.1)
[2022-01-05 14:50] LABS: CREATININE 8.9 mg/dL (0.6-1.3)
--- NOTE | 2022-01-05 15:43 | NUR ---
RN NOTES DIALYSIS NURSE AT BEDSIDE FOR HD TODAY. AWARE OF BMP RESULT.
--- NOTE | 2022-01-05 15:54 | NUR ---
RN NOTES RECEIVED CALL FROM ANESTHESIOLOGIST AND ASKS FOR PATIENT TO HAVE A RAPID COVID TEST.
--- NOTE | 2022-01-05 16:39 | NUR ---
RN NOTES COVID SWAB SPECIMEN OBTAINED.
[2022-01-05] MEDS: VIT B CMPLX 3/FA/VIT C/BIOTIN 1 TAB TABLET GT SCH (17:18)
--- NOTE | 2022-01-05 18:27 | NUR ---
RN NOTES NO OUTPUT PER DIALYSIS NURSE BECAUSE BP DECREASES.
--- NOTE | 2022-01-05 19:10 | NUR ---
RN NOTES RECEIVED PATIENT ON BED, A/O X 1, NON VERBAL, ON NASAL CANULA @ 2LPM SATING AT 99%. RESPIRATORY EVEN AND UNLABORED, REMAIN AFEBRILE, NO S/S OF DISTRESS NOTED. PATIENT NOTED WITH RIGHT HAND #22, INTACT IN PLACED, FLUSHED WITH NS. NO INFILTRATION NOTED AT SITE. WITH G-TUBE , PATENT INTACT, VERIFIED PLACEMENT BY AUSCULTATION, FLUSHED WITH WATER, NO RESIDUAL NOTED UPON ASPIRATION, RUNNING WITH NEPHRO @ 75 ML/HR. ALL SAFETY PRECAUTION PROVIDED, BED IN LOWEST POSITION, LOCKED. CONTINUE TO MONITOR.
[2022-01-05 20:00] VITALS: BP 108/62
--- NOTE | 2022-01-06 00:30 | NUR ---
RN NOTES NOTIFIED DR. MUHAMMAD REGARDING PATIENT POTASSIUM 5.3, PER MD NO NEW ORDER AT THIS TIME, AND ALSO DR. MUHAMMAD ORDER TO STOP TUBE FEEDING @ 0300 PRIOR TO PERMACATH PLACEMENT.
[2022-01-06] MEDS: CLONIDINE HCL 0.1 MG TABLET GT SCH ×5 (00:38→23:54)
[2022-01-06] MEDS: BLOOD SUGAR DIAGNOSTIC 1 EACH STRIP IN SCH ×4 (00:56→18:10)
[2022-01-06] MEDS: INSULIN REGULAR, HUMAN 100 UNIT/ML 3 ML VIAL SQ PRN ×2 (00:57→06:42)
--- NOTE | 2022-01-06 00:58 | NUR ---
RN NOTES REGULAR INSULIN NOT GIVEN, BLOOD SUGAR 94 mg/dL, NO INSULIN COVERAGE PER SLIDING SCALE.
[2022-01-06] MEDS: IPRATROPIUM/ALBUTEROL INHALER IH SCH (02:04)
[2022-01-06 04:00] VITALS: BP 107/60
[2022-01-06] MEDS ORDERED: IOHEXOL 240MG/ML 0 ML IV ONE (06:58)
[2022-01-06] MEDS ORDERED: ANESTHESIA TRAY IN PYXIS 1 EA TRAY MC ONE ×2 (06:59→13:13)
[2022-01-06] MEDS ORDERED: HEPARIN SODIUM, PORCINE 1,000 UNIT/ML VIAL ONE ×2 (06:59→13:13)
[2022-01-06] MEDS ORDERED: LIDOCAINE 1% INJ 50 ML MDV IJ ONE ×2 (06:59→13:13)
--- NOTE | 2022-01-06 07:30 | NUR ---
RN NOTES PATIENT REMAIN STABLE THROUGH OUT THE SHIFT. RESPIRATORY EVEN AND UNLABORED, REMAIN AFEBRILE, NO S/S OF DISTRESS NOTED. PATIENT NOTED WITH RIGHT HAND #22, INTACT IN PLACED, FLUSHED WITH NS. NO INFILTRATION NOTED AT SITE. WITH G-TUBE , PATENT INTACT, VERIFIED PLACEMENT BY AUSCULTATION, FLUSHED WITH WATER, NO RESIDUAL NOTED UPON ASPIRATION, RUNNING WITH NEPHRO @ 75 ML/HR. ALL DUE MEDS GIVEN ORDERED. ALL SAFETY PRECAUTION PROVIDED, BED IN LOWEST POSITION, LOCKED. ENDORSE TO NEXT SHIFT.
[2022-01-06 07:59] LABS: CALCIUM, SERUM 9.8 mg/dL (8.5-10.1); CREATININE 6.5 mg/dL (0.6-1.3); POTASSIUM 4.4 mmol/L (3.5-5.1)
[2022-01-06 08:00] VITALS: BP 117/69
--- NOTE | 2022-01-06 08:00 | NUR ---
RN OPENING NOTES PATIENT IS AWAKE IN BED RESTING, A/O X1. NO S/S OF PAIN NOTED AT THIS TIME. ON 2L OXYGEN VIA NC, NO DISTRESS OR SHORTNESS OF BREATH NOTED. IV ACCESS R HAND #22G, INTACT, PATENT AND FLUSHING WELL. FALL AND SAFETY MEASURES IN PLACE, BED ALARM ON, BED IN LOW AND LOCK POSITION, CALL LIGHT AND TABLE WITHIN EASY REACH, SIDE RAIL UP X2. WILL CONTINUE TO MONITOR.
[2022-01-06 10:26] LABS: BASOPHILS % (AUTO) 0.7 % (0.0-2.0); EOSINOPHILS % (AUTO) 1.9 % (0.0-6.0); HEMATOCRIT 24 % (39-51); LYMPHOCYTES # (AUTO) 1.1 K/uL (0.8-4.8); LYMPHOCYTES % (AUTO) 21.6 % (20.0-44.0); MEAN CORPUSCULAR HGB CONC 31 g/dl (31.0-36.0); MEAN CORPUSCULAR VOLUME 86 fL (80-96); MONOCYTES # (AUTO) 0.3 K/uL (0.1-1.30); MONOCYTES % (AUTO) 7.1 % (2.0-12.0); NEUTROPHILS # (AUTO) 3.4 K/uL (1.8-8.9); NEUTROPHILS % (AUTO) 68.7 % (43.0-81.0); PLATELET COUNT (AUTO) 157 K/uL (150-450); RED BLOOD CELL COUNT(AUTO) 2.78 MIL/uL (4.5-6.0); WHITE BLOOD COUNT (AUTO) 4.9 K/uL (4.3-11.0)
[2022-01-06 10:27] LABS: HEMOGLOBIN 7.5 g/dL (13.5-17.5)
[2022-01-06] MEDS: LEVETIRACETAM SOL (5 ML) 100 MG/ML UDC GT SCH ×2 (10:43→17:28)
[2022-01-06] MEDS: DOCUSATE SODIUM LIQ 100 MG/10 ML UDC GT SCH (10:43)
[2022-01-06] MEDS: ASCORBIC ACID 500 MG TABLET GT SCH (10:43)
[2022-01-06] MEDS: MULTIVITAMINS,THERAGRAN 1 UDTAB TABLET GT SCH (10:43)
[2022-01-06] MEDS: PANTOPRAZOLE 40 MG/PACK PACK GT SCH (10:44)
[2022-01-06] MEDS: SEVELAMER CARBONATE 800 MG POWD.PACK GT SCH ×3 (10:45→17:20)
[2022-01-06] MEDS: LEVOTHYROXINE SODIUM 75 MCG TABLET GT SCH (10:45)
[2022-01-06] MEDS: MIDODRINE HCL (5MG) 5 MG TABLET PO SCH ×3 (10:47→17:00)
[2022-01-06] MEDS: METOPROLOL TARTRATE 50 MG TABLET GT SCH ×2 (10:47→22:44)
[2022-01-06] MEDS ORDERED: EPOETIN ALFA-EPBX 4,000 UNIT/ML VIAL SQ PRN (11:00)
[2022-01-06 12:00] VITALS: BP 117/69
[2022-01-06] MEDS ORDERED: MIDAZOLAM HCL 2 MG/2ML VIAL ONE (12:51)
[2022-01-06] MEDS ORDERED: FENTANYL PF 100MCG/2ML AMPUL ONE (12:51)
--- NOTE | 2022-01-06 12:53 | NUR ---
RN NOTE PATIENT HAS BEEN NPO AND GTUBE FEEDING WAS STOP AT 03:00AM PER HEATING ELEMENT WINDER NURSE. OR NURSE AND CHARGE NURSE AWARE.
[2022-01-06] MEDS ORDERED: IOHEXOL 240MG/ML 50 ML IV ONE (13:13)
[2022-01-06] MEDS ORDERED: CLINDAMYCIN 900 MG/6 ML VIAL ONE (13:30)
--- NOTE | 2022-01-06 14:30 | NUR ---
RN NOTE PATIENT IS NOT IN ROOM, HE WAS TAKEN FOR SURGERY.
[2022-01-06 16:00] VITALS: BP 144/90
--- NOTE | 2022-01-06 16:00 | NUR ---
RN NOTE PATIENT IS IN ROOM RESTING, HE IS BACK FROM SURGERY. VITAL SIGNS TAKEN AND STABLE. WILL CONTINUE TO MONITOR.
[2022-01-06] MEDS ORDERED: NEPRO 1,000 ML BOTTLE GT PRN (16:15)
[2022-01-06] MEDS: VIT B CMPLX 3/FA/VIT C/BIOTIN 1 TAB TABLET GT SCH (17:20)
--- NOTE | 2022-01-06 17:25 | NUR ---
RN NOTE PATIENT 1800 BLOOD PRESSURE MEDICATION WAS NOT ADMINISTER BECAUSE PATIENT IS SCHEDULE FOR DIALYSIS. WILL CONTINUE TO MONITOR.
--- NOTE | 2022-01-06 19:25 | NUR ---
MS RN OPENING NOTES: RECEIVED PATIENT IN BED, AWAKE, NON VERBAL. HOB ELEVATED. NO S/S OF DISTRESS NOTED. NOT IN PAIN. CALL LIGHT WITHIN REACH. CONFUSED. BED ALARM ON. BED IN LOWEST AND LOCKED POSITION. WITH BILATERAL SOFT WRISTS RESTRAINTS ON, CHECKED SKIN AND CIRCULATIONS, WNL. JUST FINISHED THE HD WITH 1L OUT. WITH O2 AT 2L.
[2022-01-06 20:00] VITALS: BP 131/84
--- NOTE | 2022-01-06 20:00 | NUR ---
RN CLOSING NOTES PATIENT IS AWAKE IN BED RESTING, A/O X1. NO S/S OF PAIN NOTED AT THIS TIME. ON 2L OXYGEN VIA NC, NO DISTRESS OR SHORTNESS OF BREATH NOTED. IV ACCESS R HAND #22G, INTACT, PATENT AND FLUSHING WELL. PATIENT OK TO RESUME GTUBE FEEDING. PATIENT WAS TURNED AND REPOSITIONED PER PROTOCOL. FALL AND SAFETY MEASURES IN PLACE, BED ALARM ON, BED IN LOW AND LOCK POSITION, CALL LIGHT AND TABLE WITHIN EASY REACH, SIDE RAIL UP X2. WILL ENDORSE TO DIRECTOR AND PROFESSOR.
[2022-01-06] MEDS: CLINDAMYCIN 600 MG in IV D5W 50 ML IV SCH (20:52)
[2022-01-07] MEDS: INSULIN REGULAR, HUMAN 100 UNIT/ML 3 ML VIAL SQ PRN ×5 (00:12→17:38)
--- NOTE | 2022-01-07 00:13 | NUR ---
blood sugar qiqfmij=924, no insulin needed.
[2022-01-07] MEDS: CLINDAMYCIN 600 MG in IV D5W 50 ML IV SCH (01:48)
[2022-01-07] MEDS: CLONIDINE HCL 0.1 MG TABLET GT SCH ×3 (05:44→17:38)
[2022-01-07] MEDS: BLOOD SUGAR DIAGNOSTIC 1 EACH STRIP IN SCH ×4 (05:55→17:37)
--- NOTE | 2022-01-07 05:58 | NUR ---
MS RN CLOSING NOTES: PATIENT IN BED, ASLEEP, EASILY AROUSABLE. NO S/S OF DISTRESS NOTED. NOT IN PAIN. CALL LIGHT WITHIN REACH. BED ALARM ON. BED IN LOWEST AND LOCKED POSITION. HOB ELEVTAED AT ALL TIMES. HEELS OFFLOADED. TURNED AND REPOSITIONED Q 2 HOURS. TF NEPRO STILL RUNNING AT 75ML/ HOUR. BLOOD SUGAR CHECKED= 112, NO INSULIN NEEDED. GT FLUSHED WITH WATER.WITH BILATERAL SOFT WRISTS RESTRAINTS, SKIN AND CIRCULATIONS WNL.
[2022-01-07 07:26] LABS: BASOPHILS % (AUTO) 0.5 % (0.0-2.0); EOSINOPHILS % (AUTO) 0.3 % (0.0-6.0); HEMATOCRIT 23 % (39-51); HEMOGLOBIN 7.3 g/dL (13.5-17.5); LYMPHOCYTES # (AUTO) 1.1 K/uL (0.8-4.8); LYMPHOCYTES % (AUTO) 16.6 % (20.0-44.0); MEAN CORPUSCULAR HGB CONC 32 g/dl (31.0-36.0); MEAN CORPUSCULAR VOLUME 85 fL (80-96); MONOCYTES # (AUTO) 0.5 K/uL (0.1-1.30); MONOCYTES % (AUTO) 7.1 % (2.0-12.0); NEUTROPHILS # (AUTO) 4.8 K/uL (1.8-8.9); NEUTROPHILS % (AUTO) 75.5 % (43.0-81.0); PLATELET COUNT (AUTO) 170 K/uL (150-450); RED BLOOD CELL COUNT(AUTO) 2.67 MIL/uL (4.5-6.0); WHITE BLOOD COUNT (AUTO) 6.4 K/uL (4.3-11.0)
--- NOTE | 2022-01-07 07:30 | NUR ---
RN OPENING NOTES RECEIVED PATIENT IN BED, PATIENT NON VERBAL. NOT IN DISTRESS, NO FACIAL GRIMACING NOTED. O2 @ 2LPM VIA NC WITH O2 SAT 98%. RIGHT PERMACATH IN PLACE NO BLEEDING NOTED. GT PATENT AND INTACT WITH TF RUNNING NEPRO @ 75CCHR. RIGHT HAND G#22 IV SITE PATENT AND INTACT. WITH BILATERAL SOFT RESTRAINT IN PLACE TO BE RENEWED 01/08/22 @ 0705. HOB ELEVATED. BED TO LOWEST POSITION AND LOCKED.
[2022-01-07 07:32] LABS: CALCIUM, SERUM 9.7 mg/dL (8.5-10.1); CREATININE 4.9 mg/dL (0.6-1.3); POTASSIUM 4.3 mmol/L (3.5-5.1)
[2022-01-07] MEDS: MULTIVITAMINS,THERAGRAN 1 UDTAB TABLET GT SCH (08:47)
[2022-01-07] MEDS: DOCUSATE SODIUM LIQ 100 MG/10 ML UDC GT SCH (08:47)
[2022-01-07] MEDS: PANTOPRAZOLE 40 MG/PACK PACK GT SCH (08:47)
[2022-01-07] MEDS: SEVELAMER CARBONATE 800 MG POWD.PACK GT SCH ×3 (08:47→17:37)
[2022-01-07] MEDS: METOPROLOL TARTRATE 50 MG TABLET GT SCH ×2 (08:48→21:00)
[2022-01-07] MEDS: MIDODRINE HCL (5MG) 5 MG TABLET PO SCH ×3 (08:48→17:37)
[2022-01-07] MEDS: LEVOTHYROXINE SODIUM 75 MCG TABLET GT SCH (08:48)
[2022-01-07] MEDS: ASCORBIC ACID 500 MG TABLET GT SCH (08:48)
[2022-01-07] MEDS: LEVETIRACETAM SOL (5 ML) 100 MG/ML UDC GT SCH ×2 (08:49→17:37)
[2022-01-07 10:00] VITALS: BP 126/64
[2022-01-07] MEDS: NEPRO 1,000 ML BOTTLE GT PRN (14:00)
[2022-01-07] MEDS: VIT B CMPLX 3/FA/VIT C/BIOTIN 1 TAB TABLET GT SCH (17:37)
--- NOTE | 2022-01-07 19:05 | NUR ---
RN CLOSING NOTES PATIENT ASLEEP IN BED WITH MOTHER AT BEDSIDE. NOT IN DISTRESS. NO COMPLAINTS OF PAIN NOTED. O2 @ 2LPM VIA NC SATING 98%. GT PATENT AND INTACT WITH TF NEPRO @ 75CCHR. RIGHT PERMACATH FOR HD INTACT NO BLEEDING NOTED. RIGHT HAND IV SITE G#22 INTACT. KEPT HOB ELEVATED AND LOCKED. BED TO LOWEST POSITION. WILL ENDORSE TO NIGHT NURSE ON DUTY.
[2022-01-07] MEDS: IPRATROPIUM/ALBUTEROL INHALER IH SCH (19:30)
--- NOTE | 2022-01-07 19:30 | NUR ---
RN OPENING NOTE PATIENT IN BED AWAKE, PATIENT IS NONVERBAL. MOTHER AT BEDSIDE. PATIENT HAS BILATERAL SOFT WRIST RESTRAINTS ON D/T PULLING OUT TUBES AND LINES. PATIENT HAS TF ON NEPRO AT 75 ML/HR. TF TURNED OFF, SHOULD ONLY BE 18 HRS WILL BE TURNED ON AT 01 00. GT INTACT AND PATENT. PATIENT HAS A RHAND 22 G FLUSHING WELL. PATIENT HAS A RCW PERMACATH FOR HD. PATIENT ON 2LPM VIA NC TOLERATING WELL, NO SIGNS AND SYMPTOMS OF RESPIRATORY DISTRESS. SAFETY MEASURES IN PLACE: BED LOCKED AND IN LOWEST POSITION, CALL LIGHT WITHIN REACH, SIDE RAILS UP. HOB ELEVATED. WILL MONITOR PATIENT CLOSELY.
[2022-01-07 20:00] VITALS: BP 106/63
[2022-01-07 21:00] VITALS: BP 106/63
[2022-01-08] MEDS: BLOOD SUGAR DIAGNOSTIC 1 EACH STRIP IN SCH ×4 (00:01→17:43)
--- NOTE | 2022-01-08 00:01 | NUR ---
BS 94 MG/DL. NO COVERAGE GIVEN. PATIENT ON TF- WILL BE TURNED ON AT 0200. WILL MONITOR FOR HYPOGLYCEMIA
[2022-01-08] MEDS: IPRATROPIUM/ALBUTEROL INHALER IH SCH ×4 (01:30→19:02)
--- NOTE | 2022-01-08 01:33 | NUR ---
COMBIVENT INHALER NON ADMINISTERED D/T PATIENT NOT WANTING TO OPEN MOUTH AND GESTURING NO MOVING HEAD SIDE TO SIDE
--- NOTE | 2022-01-08 02:00 | NUR ---
TF TURNED ON AT THIS TIME. NEPRO AT 75 ML/HR. NO RESIDUAL.
[2022-01-08 05:00] VITALS: BP 114/79
[2022-01-08] MEDS: CLONIDINE HCL 0.1 MG TABLET GT SCH ×4 (05:48→17:45)
--- NOTE | 2022-01-08 05:57 | NUR ---
BS 112 MG/DL NO COVERAGE GIVEN. PATIENT ON TF AT THIS TIME. WILL MONITOR FOR HYPOGLYCEMIA.
--- NOTE | 2022-01-08 06:56 | NUR ---
RN CLOSING NOTE PATIENT IN BED EYES CLOSED, EASILY AWAKENED WITH TOUCH AND VERBAL STIMULI. PATIENT IS NONVERBAL. PATIENT HAS BILATERAL SOFT WRIST RESTRAINTS ON D/T PULLING OUT TUBES AND LINES. PATIENT HAS TF ON NEPRO AT 75 ML/HR.TOLERATES WELL, NO RESIDUAL AT THIS TIME. GT INTACT AND PATENT. PATIENT HAS A RHAND 22 G FLUSHING WELL. PATIENT HAS A RCW PERMACATH FOR HD. PATIENT ON 2LPM VIA NC TOLERATING WELL, NO SIGNS AND SYMPTOMS OF RESPIRATORY DISTRESS. SAFETY MEASURES IN PLACE: BED LOCKED AND IN LOWEST POSITION, CALL LIGHT WITHIN REACH, SIDE RAILS UP. HOB ELEVATED. ALL NEEDS MET AND ATTENDED. ALL ORDERS CARRIED OUT. WILL ENDORSE TO DAY SHIFT NURSE FOR CABRERA.
--- NOTE | 2022-01-08 07:00 | NUR ---
RN NOTES PATIENT REFUSED BLOOD WITHDRAW AT 0700 AM.
--- NOTE | 2022-01-08 07:30 | NUR ---
RN OPENING NOTE RECEIVED PATIENT IN BED AWAKE. NONVERBAL. PATIENT HAS BILATERAL SOFT WRIST RESTRAINTS ON .SKIN CHECKS DONE. PATIENT HAS TF ON NEPRO AT 75 ML/HR. GT INTACT AND PATENT. PATIENT HAS A R HAND 22 G FLUSHING WELL. PATIENT HAS A RCW PERMACATH FOR HD. PATIENT ON 2LPM VIA NC TOLERATING WELL, NO SIGNS AND SYMPTOMS OF RESPIRATORY DISTRESS. SAFETY MEASURES IN PLACE: BED LOCKED AND IN LOWEST POSITION, CALL LIGHT WITHIN REACH, SIDE RAILS UP. HOB ELEVATED. WILL CONTINUE TO MONITOR.
[2022-01-08] MEDS: SEVELAMER CARBONATE 800 MG POWD.PACK GT SCH ×3 (07:51→17:44)
[2022-01-08] MEDS: METOPROLOL TARTRATE 50 MG TABLET GT SCH ×2 (09:42→20:42)
[2022-01-08] MEDS: LEVETIRACETAM SOL (5 ML) 100 MG/ML UDC GT SCH ×2 (09:42→16:44)
[2022-01-08] MEDS: PANTOPRAZOLE 40 MG/PACK PACK GT SCH (09:43)
[2022-01-08] MEDS: DOCUSATE SODIUM LIQ 100 MG/10 ML UDC GT SCH (09:43)
[2022-01-08] MEDS: MULTIVITAMINS,THERAGRAN 1 UDTAB TABLET GT SCH (09:43)
[2022-01-08] MEDS: MIDODRINE HCL (5MG) 5 MG TABLET PO SCH ×3 (09:44→16:44)
[2022-01-08] MEDS: ASCORBIC ACID 500 MG TABLET GT SCH (09:44)
[2022-01-08] MEDS: LEVOTHYROXINE SODIUM 75 MCG TABLET GT SCH (09:44)
--- NOTE | 2022-01-08 11:39 | NUR ---
RN NOTES PATIENT REFUSED BLOOD WITHDRAW AT 1130 AM.
[2022-01-08] MEDS: NEPRO 1,000 ML BOTTLE GT PRN (12:02)
[2022-01-08 13:02] LABS: BASOPHILS % (AUTO) 0.7 % (0.0-2.0); EOSINOPHILS % (AUTO) 1.5 % (0.0-6.0); HEMATOCRIT 24 % (39-51); HEMOGLOBIN 7.6 g/dL (13.5-17.5); LYMPHOCYTES # (AUTO) 0.8 K/uL (0.8-4.8); LYMPHOCYTES % (AUTO) 17.8 % (20.0-44.0); MEAN CORPUSCULAR HGB CONC 31 g/dl (31.0-36.0); MEAN CORPUSCULAR VOLUME 86 fL (80-96); MONOCYTES # (AUTO) 0.3 K/uL (0.1-1.30); MONOCYTES % (AUTO) 6.3 % (2.0-12.0); NEUTROPHILS # (AUTO) 3.3 K/uL (1.8-8.9); NEUTROPHILS % (AUTO) 73.7 % (43.0-81.0); PLATELET COUNT (AUTO) 150 K/uL (150-450); RED BLOOD CELL COUNT(AUTO) 2.83 MIL/uL (4.5-6.0); WHITE BLOOD COUNT (AUTO) 4.5 K/uL (4.3-11.0)
[2022-01-08 13:21] VITALS: BP 101/76
[2022-01-08] MEDS: VIT B CMPLX 3/FA/VIT C/BIOTIN 1 TAB TABLET GT SCH (17:45)
[2022-01-08] MEDS ORDERED: VANCOMYCIN 1 GM in IV D5W 250 ML IV ONE (18:15)
--- NOTE | 2022-01-08 18:45 | NUR ---
RN CLOSING NOTE PATIENT IN BED AWAKE. NONVERBAL. PATIENT HAS BILATERAL SOFT WRIST RESTRAINTS .SKIN CHECKS DONE. PATIENT HAS TF ON NEPRO AT 75 ML/HR. GT INTACT AND PATENT. PATIENT HAS A R HAND 22 G FLUSHING WELL. PATIENT HAS A RCW PERMACATH FOR HD. PATIENT ON 2LPM VIA NC TOLERATING WELL, NO SIGNS AND SYMPTOMS OF RESPIRATORY DISTRESS. SAFETY MEASURES IN PLACE:ALL DUE MEDS GIVEN ORDERED. HELD CLONIDINE FOR 1700 FOR LOW BP. WILL ENDORSE INCOMIG SHIFT TO MONITOR CLOSELY THE BLOOD PRESSURE. LATEST BP=93/54 .MOTHER AT BED SIDE. BED LOCKED AND IN LOWEST POSITION, CALL LIGHT WITHIN REACH, SIDE RAILS UP. HOB ELEVATED. WILL ENDORSE FOR CABRERA..
--- NOTE | 2022-01-08 19:40 | NUR ---
RN NOTE PT RECEIVED IN BED, FAMILY AT BEDSIDE. PT IS ON 2L OF O2 VIA NC SHOWING NO S/S OF RESP DISTRESS. BREATHING EVEN AND UNLABORED. PT IS AWAKE, ABLE TO NOD, BUT NON-VERBAL. PER DAY SHIFT RN ENDORSEMENT, PT RECEIVED HD TODAY WITH 2L REMOVED. SOFT WRISTS RESTRAINTS NOTED. ALL SAFETY MEASURES INITIATED PER PROTOCOL. G-TUBE INTACT AND PATENT INFUSING NEPRO AT 75 CC/HR, PT TOLERATING WELL. TURNED OFF FEEDING AT 1900 WILL RESUME AT 0100. IV ACCESS NOTED ON RIGHT HAND #22, LINE FLUSHED, PATENT, AND INTACT. RIGHT CHEST WELL PERMACATH NOTED, INTACT. ALL SAFETY MEASURES IMPLEMENTED. HOB ELEVATED. BED LOCKED AND IN LOWEST POSITION. SIDE RAILS UP. WILL CONTINUE TO MONITOR AND ASSESS FOR ANY CHANGES DURING SHIFT.
[2022-01-08 20:00] VITALS: BP 104/59
[2022-01-09] MEDS: INSULIN REGULAR, HUMAN 100 UNIT/ML 3 ML VIAL SQ PRN ×2 (00:30→05:43)
[2022-01-09] MEDS: BLOOD SUGAR DIAGNOSTIC 1 EACH STRIP IN SCH ×3 (00:30→12:20)
--- NOTE | 2022-01-09 00:31 | NUR ---
RN NOTE BS 89. NO INSULIN COVERAGE REQUIRED PER SLIDING SCALE.
[2022-01-09] MEDS: IPRATROPIUM/ALBUTEROL INHALER IH SCH ×3 (01:30→12:36)
[2022-01-09 04:00] VITALS: BP 122/72
[2022-01-09] MEDS: CLONIDINE HCL 0.1 MG TABLET GT SCH ×3 (05:33→12:32)
--- NOTE | 2022-01-09 06:41 | NUR ---
RN NOTE NO CHANGES IN PT CONDITION DURING SHIFT. PT IS ON 2L OF O2 VIA NC SHOWING NO S/S OF RESP DISTRESS. BREATHING EVEN AND UNLABORED. PT IS AWAKE, ABLE TO NOD, BUT NON-VERBAL. G-TUBE INTACT AND PATENT INFUSING NEPRO AT 75 CC/HR, PT TOLERATING WELL. TURNED OFF FEEDING AT 1900 WILL RESUME AT 0100. IV ACCESS NOTED ON RIGHT HAND #22, LINE FLUSHED, PATENT, AND INTACT. RIGHT CHEST WELL PERMACATH NOTED, INTACT. ALL SAFETY MEASURES IMPLEMENTED. ALL DUE MEDS GIVEN ORDERED. PT KEPT CLEAN AND COMFORTABLE. HOB ELEVATED. BED LOCKED AND IN LOWEST POSITION. SIDE RAILS UP. WILL ENDORSE TO MORNING SHIFT RN FOR CABRERA.
[2022-01-09 06:48] LABS: BASOPHILS % (AUTO) 0.8 % (0.0-2.0); EOSINOPHILS % (AUTO) 2.3 % (0.0-6.0); HEMATOCRIT 24 % (39-51); HEMOGLOBIN 7.6 g/dL (13.5-17.5); LYMPHOCYTES # (AUTO) 1.1 K/uL (0.8-4.8); LYMPHOCYTES % (AUTO) 24.7 % (20.0-44.0); MEAN CORPUSCULAR HGB CONC 32 g/dl (31.0-36.0); MEAN CORPUSCULAR VOLUME 86 fL (80-96); MONOCYTES # (AUTO) 0.4 K/uL (0.1-1.30); MONOCYTES % (AUTO) 8.3 % (2.0-12.0); NEUTROPHILS # (AUTO) 2.7 K/uL (1.8-8.9); NEUTROPHILS % (AUTO) 63.9 % (43.0-81.0); PLATELET COUNT (AUTO) 120 K/uL (150-450); RED BLOOD CELL COUNT(AUTO) 2.79 MIL/uL (4.5-6.0); WHITE BLOOD COUNT (AUTO) 4.2 K/uL (4.3-11.0)
--- NOTE | 2022-01-09 07:33 | NUR ---
MS RN OPENING NOTES RECEIVED PATIENT IN BED, PATIENT awake but NON VERBAL. NOT IN any DISTRESS, NO FACIAL GRIMACING NOTED. O2 @ 2LPM VIA NC WITH O2 SAT 98%. RIGHT PERMACATH IN PLACE NO BLEEDING NOTED. GT PATENT AND INTACT WITH TF RUNNING NEPRO @ 75CCHR. RIGHT HAND G#22 IV SITE PATENT AND INTACT. HOB ELEVATED. BED TO LOWEST POSITION AND LOCKED.WILL MONITOR THE PATIENT
[2022-01-09 07:47] LABS: CALCIUM, SERUM 9.2 mg/dL (8.5-10.1); CREATININE 4.4 mg/dL (0.6-1.3); PHOSPHORUS 4.8 mg/dL (2.5-4.9); POTASSIUM 4.2 mmol/L (3.5-5.1)
[2022-01-09 08:00] VITALS: BP 119/73
[2022-01-09] MEDS: MULTIVITAMINS,THERAGRAN 1 UDTAB TABLET GT SCH (08:10)
[2022-01-09] MEDS: ASCORBIC ACID 500 MG TABLET GT SCH (08:10)
[2022-01-09] MEDS: PANTOPRAZOLE 40 MG/PACK PACK GT SCH (08:10)
[2022-01-09] MEDS: LEVETIRACETAM SOL (5 ML) 100 MG/ML UDC GT SCH (08:11)
[2022-01-09] MEDS: LEVOTHYROXINE SODIUM 75 MCG TABLET GT SCH (08:11)
[2022-01-09] MEDS: SEVELAMER CARBONATE 800 MG POWD.PACK GT SCH ×2 (08:12→12:32)
[2022-01-09] MEDS: DOCUSATE SODIUM LIQ 100 MG/10 ML UDC GT SCH (08:12)
[2022-01-09] MEDS: METOPROLOL TARTRATE 50 MG TABLET GT SCH (08:27)
[2022-01-09] MEDS: MIDODRINE HCL (5MG) 5 MG TABLET PO SCH ×2 (08:29→12:35)
[2022-01-09] MEDS: NEPRO 1,000 ML BOTTLE GT PRN (09:42)
[2022-01-09 12:35] VITALS: BP 117/82
[2022-01-09] MEDS ORDERED: EPOE40007 SQ (15:11)
[2022-01-09] MEDS ORDERED: MIDO5TAB4 PO (15:11)
[2022-01-09] MEDS ORDERED: VANC500F2 IV (15:11)
--- NOTE | 2022-01-09 16:18 | NUR ---
RN NOTE PATIENT LEFT FACILITY PER ORDER. [facility] ARRANGEMENT FOR D/C [facility] DONE WITH HD [facility] PER [facility] REQUEST. PATIENT LEFT FACILITY WITH AMBULANCE CREW, MEDICALLY STABLE. PIV REMOVED.
== END 2022-01-09 16:33 | DRG 314 ==
LOC: TELE1 05:09 → MEDSG1 01-04 07:55
PROVIDERS: ADMIT Internal Medicine; ATTEND Nurse Practitioner Acute Care
PROC: 5A1D70Z Performance of Urinary Filtration, Intermittent, Less than 6 Hours Per Day (ICD-10-PCS; 2021-12-30)
PROC: 5A1935Z Respiratory Ventilation, Less than 24 Consecutive Hours (ICD-10-PCS; 2022-01-04)
PROC: 0JH63XZ Insertion of Tunneled Vascular Access Device into Chest Subcutaneous Tissue and Fascia, Percutaneous Approach (ICD-10-PCS; principal; 2022-01-06)
PROC: 02HV33Z Insertion of Infusion Device into Superior Vena Cava, Percutaneous Approach (ICD-10-PCS; 2022-01-06)
PROC: B518YZA Fluoroscopy of Superior Vena Cava using Other Contrast, Guidance (ICD-10-PCS; 2022-01-06)
PROC: 0JPV3XZ Removal of Tunneled Vascular Access Device from Upper Extremity Subcutaneous Tissue and Fascia, Percutaneous Approach (ICD-10-PCS; 2022-01-06)
DX: T80.211A Bloodstream infection due to central venous catheter, initial encounter (principal); N18.6 End stage renal disease; A41.89 Other specified sepsis; I12.0 Hypertensive chronic kidney disease with stage 5 chronic kidney disease or end stage renal disease; D68.59 Other primary thrombophilia; E87.1 Hypo-osmolality and hyponatremia; G93.49 Other encephalopathy; G93.1 Anoxic brain damage, not elsewhere classified; Y84.8 Other medical procedures as the cause of abnormal reaction of the patient, or of later complication, without mention of misadventure at the time of the procedure; Y92.89 Other specified places as the place of occurrence of the external cause; I95.9 Hypotension, unspecified; Z86.73 Personal history of transient ischemic attack (TIA), and cerebral infarction without residual deficits; Z99.2 Dependence on renal dialysis; I48.91 Unspecified atrial fibrillation; E03.9 Hypothyroidism, unspecified; E83.52 Hypercalcemia; Z20.822 Contact with and (suspected) exposure to COVID-19; D64.9 Anemia, unspecified; Z86.69 Personal history of other diseases of the nervous system and sense organs; Z79.01 Long term (current) use of anticoagulants; R13.10 Dysphagia, unspecified; D69.6 Thrombocytopenia, unspecified; Z74.09 Other reduced mobility
CPT/HCPCS: 36415; 71045-TC; 80048-TC; 80053-TC; 80061-TC; 80177; 80202-TC; 82962-TC; 83540-TC; 83605-TC; 83735-TC; 84100-TC; 84443-TC; 85025-TC; 86706; 87040-TC; 87081-TC; 87340; 90935-TC; A4216; A4217; C1750; C1757; C1769; C1894; G0378; J0330; J1100; J1644; J1815; J1953; J1956; J2185; J2250; J2405; J2704; J2997; J3010; J3370; J3490; J7030; J7050; J7060; J7070; Q9966

== ENCOUNTER → 2022-02-05 | Emergency (ER) | payer MEDICARE, OTHER ==
[~2022-02-05] VITALS: Ht 170.2 cm; Wt 85.7 kg
[~2022-02-05] MED LIST changes: +ASCO-352 GT; +CLON0.1T GT; +DOCU50LI GT; +EPOE40007 SQ; +GUAI100S9 GT; -LANS30TA4 GT; -LEVE100S GT; +LEVE250T2 GT; +METO50TA16 GT; -METO5SOL GT; -MIDO10TA GT; +MIDO5TAB4 PO; +MULT-754 GT; -NA P133E RC; +NIFE-34 GT; -ONDA4TAB5 GT; +PANT40SU2 GT; -POLY15DR40 EACHEYE; +VANC500F2 IV; +hydrALAZINE HCL IV 20 MG VIAL IV ONE; +hydrALAZINE HCL IV 20 MG VIAL ONE
[2022-02-05 15:50] LABS: BASOPHILS % (AUTO) 0.7 % (0.0-2.0); EOSINOPHILS % (AUTO) 1.2 % (0.0-6.0); HEMATOCRIT 32 % (39-51); HEMOGLOBIN 10.2 g/dL (13.5-17.5); LYMPHOCYTES # (AUTO) 0.8 K/uL (0.8-4.8); LYMPHOCYTES % (AUTO) 24.5 % (20.0-44.0); MEAN CORPUSCULAR HGB CONC 32 g/dl (31.0-36.0); MEAN CORPUSCULAR VOLUME 87 fL (80-96); MONOCYTES # (AUTO) 0.3 K/uL (0.1-1.30); MONOCYTES % (AUTO) 8.2 % (2.0-12.0); NEUTROPHILS # (AUTO) 2.2 K/uL (1.8-8.9); NEUTROPHILS % (AUTO) 65.4 % (43.0-81.0); PLATELET COUNT (AUTO) 89 K/uL (150-450); RED BLOOD CELL COUNT(AUTO) 3.64 MIL/uL (4.5-6.0); WHITE BLOOD COUNT (AUTO) 3.4 K/uL (4.3-11.0)
[2022-02-05 16:01] LABS: CALCIUM, SERUM 9.2 mg/dL (8.5-10.1); CREATININE 2.5 mg/dL (0.6-1.3); POTASSIUM 2.9 mmol/L (3.5-5.1)
--- NOTE | 2022-02-05 17:37 | NUR ---
CALLED [facility] ETA 2030
--- NOTE | 2022-02-05 17:39 | NUR ---
CALLED [facility] FOR TRANSPORT ETA 45 MINS PER LOIS.
--- NOTE | 2022-02-05 18:40 | NUR ---
report given to hunter (nurse).
--- NOTE | 2022-02-05 19:00 | NUR ---
pt picked up by transport team.
[2022-02-05 19:17] VITALS: BP 180/113
== END | disposition home or self-care (01) ==
LOC: ER 14:29
DX: I16.0 Hypertensive urgency (principal); I12.0 Hypertensive chronic kidney disease with stage 5 chronic kidney disease or end stage renal disease; E11.22 Type 2 diabetes mellitus with diabetic chronic kidney disease; N18.6 End stage renal disease; Z99.2 Dependence on renal dialysis; Z98.890 Other specified postprocedural states; Z88.1 Allergy status to other antibiotic agents; Z79.899 Other long term (current) drug therapy; Z79.4 Long term (current) use of insulin
CPT/HCPCS: 36415; 71045; 80048; 85025; 85730; 93005; 96374; 96376; 99285; J0360 ×2